=== PATIENT | female | born 1935 | race Caucasian/White ===

== ENCOUNTER 2016-11-14 09:10 | Inpatient (IN) | payer MEDICARE ==
[~2016-11-14] VITALS: Ht 177.8 cm; Wt 66.4 kg
[2016-11-14] VITALS (8 sets, daily range): BP systolic 137–163; BP diastolic 68–86; PULSE 69–97; RESP 16–20; TEMP 97.1–98.4; O2SAT 94–98
[~2016-11-14 09:10] MED LIST: ASCO500C PO; CALC500T42 PO; CEFU1TAB20 PO; COQ130CA4 PO; COUM4TAB7 PO; DIGO0.25 PO; FOLI1TAB PO; JANT5TAB2 PO; LEVO50TA4 PO; LOSA50TA PO; MAGN30TA PO; NITR-29 PO; PREM0.622 PO; PROP40TA27 PO; TAB-TAB PO; VITA20003 PO
[2016-11-14] MEDS ORDERED: SODIUM CHLORIDE 0.9% FLUSH 5 ML FLUSH IVF PRN (09:45)
[2016-11-14 09:57] LABS: AUTOMATED NEUTROPHIL # 4.1 TH/MM3 (1.8-7.7); BASOPHIL % 0.9 % (0.0-2.0); EOSINOPHIL # 0.1 TH/MM3 (0-0.4); HEMATOCRIT 41.2 % (35.0-46.0); HEMO FLAGS DIFF FINAL; LYMPH % 15.5 % (9.0-44.0); LYMPHOCYTE # 0.9 TH/MM3 (1.0-4.8); MEAN CELL VOLUME 84.9 FL (80.0-100.0); MEAN CORPUSCULAR HEMOGLOBIN 27.7 PG (27.0-34.0); MEAN CORPUSCULAR HGB CONC 32.7 % (32.0-36.0); MONO % 9.2 % (0.0-8.0); NEUT % 72.4 % (16.0-70.0); PLATELET COUNT 164 TH/MM3 (150-450); RED BLOOD COUNT 4.85 MIL/MM3 (4.00-5.30); RED CELL DISTRIBUTION WIDTH 14.5 % (11.6-17.2); WHITE BLOOD COUNT 5.6 TH/MM3 (4.0-11.0)
[2016-11-14 10:09] LABS: APTT (PATIENT) 31.7 SEC (24.3-30.1); INTERNATIONAL NORMALIZED RATIO 2.4 RATIO
[2016-11-14 10:10] LABS: ANION GAP 7 MEQ/L (5-15); AST (GOT) 28 U/L (15-37); BICARBONATE 24.7 MEQ/L (21.0-32.0); BLOOD UREA NITROGEN 13 MG/DL (7-18); CHLORIDE 107 MEQ/L (98-107); GLOMERULAR FILTRATION RATE 61 ML/MIN (>89); MAGNESIUM 2.1 MG/DL (1.5-2.5); POTASSIUM 4.3 MEQ/L (3.5-5.1); SODIUM (NA) 139 MEQ/L (136-145)
[2016-11-14 10:15] LABS: ALKALINE PHOSPHATASE 104 U/L (45-117); ALT (GPT) 33 U/L (10-53); CREATINE KINASE 115 U/L (26-192); TOTAL BILIRUBIN ADULT 0.5 MG/DL (0.2-1.0)
--- NOTE | 2016-11-14 10:17 | RADRPT ---
EXAM DATE/TIME: 11/14/2016 09:44 [place] COMPARISON: CHEST SINGLE AP, October 28, 2014, 15:11. INDICATIONS : Patient complains of dizziness. Possible syncopal episode. No chest complaints. MEDICAL HISTORY : A-fib. SURGICAL HISTORY : None. ENCOUNTER: Initial ACUITY: 1 day PAIN SCORE: 0/10 LOCATION: chest FINDINGS: Portable AP view of the chest demonstrates a normal-sized cardiac silhouette. No effusion, consolidat ion, or pneumothorax is visualized. The bones and soft tissues demonstrate no acute abnormality. CONCLUSION: No acute cardiopulmonary abnormality is identified. Diego Johnston MD on November 14, 2016 at 10:15 Board Certified Radiologist. This report was verified electronically.
[2016-11-14 10:27] LABS: CKMB 2.6 NG/ML (0.5-3.6)
[2016-11-14] MEDS ORDERED: ACETAMINOPHEN 325 MG TAB PO PRN ×2 (12:15→14:45)
[2016-11-14] MEDS ORDERED: ONDANSETRON HCL 4 MG/2 ML VIAL IVP PRN (12:15)
[2016-11-14] MEDS ORDERED: SODIUM CHLORIDE 0.9% FLUSH 5 ML FLUSH FLUSH PRN (12:15)
[2016-11-14] MEDS ORDERED: MAGNESIUM HYDROXIDE SUSP 30 ML CUP PO PRN (12:15)
[2016-11-14] MEDS ORDERED: BISACODYL 10 MG SUPP PR PRN (12:15)
[2016-11-14] MEDS ORDERED: NALOXONE HCL 0.4 MG/ML AMP IV PRN (12:15)
[2016-11-14] MEDS ORDERED: NITROGLYCERIN 0.4 MG SL 25 TABS/BTL SL PRN (12:15)
--- NOTE | 2016-11-14 12:47 | PD ---
HPI Chief Complaint: Dizziness Time Seen by Provider: 10:08 Travel History International Travel<30 days: No Contact w/Intl Traveler<30days: No Traveled to known affect area: No History of Present Illness HPI Patient is an 81-year-old female presents emergency department after presyncopal symptoms this morning. Patient does have a history of atrial fibrillation on Coumadin. Patient states she was getting out of shower when suddenly she felt very lightheaded and had to sit down. Her son does have an be coming over to give her breakfast this morning and found her diaphoretic and pale with a rapid heartbeat. Patient did discuss grab some palpitations. She is followed by Dr. Jaylon Baker for atrial fibrillation and per the son has been suggested that she be electrocardioverted at sometime in the future for symptomatically control. Patient states currently she is only having some mild lightheadedness denies any chest pain shortness of breath abdominal pain. 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) Cardiovascular Problems: Yes (HX OF ATRIAL FIB, PVCS,MITRO-VALVE PROLAPSE) High Cholesterol: No Chemotherapy: No Chest Pain: No Congestive Heart Failure: No COPD: No Cerebrovascular Accident: No Diabetes: No Diminished Hearing: No Endocrine: Yes Gastrointestinal Disorders: Yes (CHRONIC STAGEII) GERD: Yes Genitourinary: No Headaches: No Hepatitis: No Hiatal Hernia: No Heparin Induced Thrombocytopen: No Hypertension: Yes Immune Disorder: No Implanted Vascular Access Dvce: No Kidney Stones: No Medical other: No Musculoskeletal: Yes (TMJ, RHEUMATOID ARTHRITIS, HX OF BACK PROBLEMS) Neurologic: No Psychiatric: Yes (CLAUSTROPHOBIC FOR MRI) Reproductive: No Respiratory: No Immunizations Current: Yes Migraines: No Radiation Therapy: No Renal Failure: No Seizures: No Sickle Cell Disease: No Sleep Apnea: No Thyroid Disease: Yes (HYPO) Ulcer: No ?: Not Menopausal: Yes Past Surgical History Abdominal Surgery: Yes AICD: No Appendectomy: Yes Arteriovenous Shunt: No Cardiac Surgery: No Cholecystectomy: Yes Ear Surgery: No Endocrine Surgery: No Eye Surgery: Yes (BILATERAL LASER FOR GLAUCOMA) Genitourinary Surgery: No Gynecologic Surgery: Yes Hysterectomy: Yes Insulin Pump: No Joint Replacement: No Neurologic Surgery: No Oral Surgery: Yes (TEETH EXTRACTION) Pacemaker: No Thoracic Surgery: No Other Surgery: Yes (PELVIC SLING) Social History Alcohol Use: No Tobacco Use: No Substance Use: No Allergies-Medications (Allergen,Severity, Reaction): Coded Allergies: Sulfa (Verified Allergy, Severe, ORAL SORES, 12/01/14) Ofloxacin (Verified Adverse Reaction, Severe, POSSIBLE A FIB, 12/01/14) Demerol (Verified Adverse Reaction, Unknown, SEVERE NAUSEA & VOMITING, 12/01) Doxycycline (Verified Adverse Reaction, Unknown, 12/01/14) INCREASED PAIN OF RHEUMATOID ARTHRITIS Reported Meds & Prescriptions Reported Meds & Active Scripts Active Coumadin (Warfarin) 4 Mg Tab 4 Mg PO Take 1 tab (4mg) weekly on Tuesdays Propranolol (Propranolol HCl) 40 Mg Tab 80 Mg PO QID Lanoxin (Digoxin) 0.25 Mg Tab 0.125 Mg PO DAILY Reported Magnesium 100 Mg Cap 30 Mg PO DAILY Warfarin 3 Mg Tab 3 Mg PO SUMOWETHFRSA Take 1 tablet (3mg) on Wednesday,Wednesday,Wednesday,,Wednesday and Wednesday Tylenol (Acetaminophen) 325 Mg Tab 325 Mg PO Q4H PRN Keflex (Cephalexin) 500 Mg Cap 500 Mg PO HS Probiotic (Lactobacillus Acidophilus) 1 Cap Cap 1 Cap PO DAILY Doxepin (Doxepin HCl) Unknown Strength Cap 1 Cap PO HS Leflunomide Unknown Strength Tab 1 Tab PO DAILY Multi Vitamin (Multiple Vitamin) 1 Tab Tab 1 Tab PO DAILY Levothyroxine (Levothyroxine Sodium) 50 Mcg Tab 50 Mcg PO DAILY Coq-10 (Coenzyme Q10 (Ubidecarenone)) 100 Mg Cap 100 Mg PO DAILY Vitamin D3 (Cholecalciferol) 1,000 Unit Tab 1,000 Units PO BID Calcium 500 Mg Tab 500 Mg PO DAILY Vitamin C (Ascorbic Acid) 1,000 Mg Tab 1,000 Mg PO TID Review of Systems Except as stated in HPI: all other systems reviewed are Neg Physical Exam Narrative GENERAL: Well-developed well-nourished but thin in no obvious distress. SKIN: Warm and dry. HEAD: Atraumatic. Normocephalic. EYES: Pupils equal and round. No scleral icterus. No injection or drainage. ENT: No nasal bleeding or discharge. Mucous membranes pink and moist. NECK: Trachea midline. No JVD. CARDIOVASCULAR: Irregularly irregular with normal rate.. No murmur appreciated. 2+ bilateral equal pulses in all 4 extremities. RESPIRATORY: No accessory muscle use. Clear to auscultation. Breath sounds equal bilaterally. GASTROINTESTINAL: Abdomen soft, non-tender, nondistended. Hepatic and splenic margins not palpable. MUSCULOSKELETAL: No obvious deformities. No clubbing. No cyanosis. No edema. NEUROLOGICAL: Awake and alert. No cranial nerves II through XII are grossly intact and nonfocal, 5 out of 5 strength in all 4 extremities, cerebellar testing negative.. PSYCHIATRIC: Appropriate mood and affect; insight and judgment normal. Data Data Last Documented VS Vital Signs Date Time Temp Pulse Resp B/P Pulse Ox O2 Delivery O2 Flow Rate FiO2 11/14/16 12:00 75 16 143/68 98 Room Air 11/14/16 09:21 98.4 Orders Electrocardiogram (11/14/16 ) B-Type Natriuretic Peptide (11/14/16 09:34) Ckmb (Isoenzyme) Profile (11/14/16 09:34) Complete Blood Count With Diff (11/14/16 09:34) Comprehensive Metabolic Panel (11/14/16 09:34) Magnesium (Mg) (11/14/16 09:34) Prothrombin Time / Inr (Pt) (11/14/16 09:34) Act Partial Throm Time (Ptt) (11/14/16 09:34) Troponin I (11/14/16 09:34) Chest, Single Ap (11/14/16 09:34) Ecg Monitoring (11/14/16 09:34) Bilateral Bp Monitoring (11/14/16 09:34) Iv Access Insert/Monitor (11/14/16 09:34) Oximetry (11/14/16 09:34) Oxygen Administration (11/14/16 09:34) Sodium Chloride 0.9% Flush (Ns Flush) (11/14/16 09:45) CKMB (11/14/16 09:35) CKMB% (11/14/16 09:35) Admit Order (Ed Use Only) (11/14/16 ) Labs Laboratory Tests Test 11/14/16 09:35 White Blood Count 5.6 TH/MM3 Red Blood Count 4.85 MIL/MM3 Hemoglobin 13.4 GM/DL Hematocrit 41.2 % Mean Corpuscular Volume 84.9 FL Mean Corpuscular Hemoglobin 27.7 PG Mean Corpuscular Hemoglobin 32.7 % Concent Red Cell Distribution Width 14.5 % Platelet Count 164 TH/MM3 Mean Platelet Volume 8.4 FL Neutrophils (%) (Auto) 72.4 % Lymphocytes (%) (Auto) 15.5 % Monocytes (%) (Auto) 9.2 % Eosinophils (%) (Auto) 2.0 % Basophils (%) (Auto) 0.9 % Neutrophils # (Auto) 4.1 TH/MM3 Lymphocytes # (Auto) 0.9 TH/MM3 Monocytes # (Auto) 0.5 TH/MM3 Eosinophils # (Auto) 0.1 TH/MM3 Basophils # (Auto) 0.0 TH/MM3 CBC Comment DIFF FINAL Differential Comment Prothrombin Time 28.0 SEC Prothromb Time International 2.4 RATIO Ratio Activated Partial 31.7 SEC Thromboplast Time Sodium Level 139 MEQ/L Potassium Level 4.3 MEQ/L Chloride Level 107 MEQ/L Carbon Dioxide Level 24.7 MEQ/L Anion Gap 7 MEQ/L Blood Urea Nitrogen 13 MG/DL Creatinine 0.89 MG/DL Estimat Glomerular Filtration 61 ML/MIN Rate Random Glucose 112 MG/DL Calcium Level 8.9 MG/DL Magnesium Level 2.1 MG/DL Total Bilirubin 0.5 MG/DL Aspartate Amino Transf 28 U/L (AST/SGOT) Alanine Aminotransferase 33 U/L (ALT/SGPT) Alkaline Phosphatase 104 U/L Total Creatine Kinase 115 U/L Creatine Kinase MB 2.6 NG/ML Troponin I LESS THAN 0.02 NG/ML B-Type Natriuretic Peptide 94 PG/ML Total Protein 7.2 GM/DL Albumin 3.3 GM/DL [facility] Medical Decision Making Medical Screen Exam Complete: Yes Emergency Medical Condition: Yes Interpretation(s) EKG shows atrial fibrillation with a normal axis and normal R-wave progression. No concerning ST T changes. This is an abnormal EKG. Differential Diagnosis ACS, AMI, dysrhythmia, electrolyte abnormality, Narrative Course Patient roomed in emergency department, she appears well and endorses some mild lightheadedness only. Initial workup with EKG lab work negative, troponin negative. Discussed with Dr. Callum Li was auto air conditioning apprentice and agrees with the patient's primary workup modality from therefore will be Holter monitor. Patient's son is very concerned about troponin trending and concerned that she might be having a cardiac event. This was discussed with Dr. Li who is agreeable to admit for troponin trending. Patient's son states that the patient 's venetian blind cleaner has been suggesting that electrocardioversion of her A. fib may be indicated in the near future however this discussed that this is probably not going to be performed on this admission. INR is therapeutic. She is stable for CDU. Diagnosis Primary Impression: Pre-syncope Admitting Information Admitting Physician Requests: Observation Scripts Warfarin (Coumadin)4 Mg Tab4 Mg PO #30 TAB Ref 0 Take 1 tab (4mg) weekly on Tuesdays Prov:Cleveland Li DO 11/14/16 Propranolol 40 Mg Tab80 Mg PO QID #90 TAB Ref 0 Prov:Cleveland Li DO 11/14/16 Digoxin (Lanoxin)0.25 Mg Tab0.125 Mg PO DAILY #30 TAB Ref 0 Prov:Cleveland Li DO 11/14/16 Condition: Stable Magdy Sofia MD Nov 14, 2016 12:47
--- NOTE | 2016-11-14 13:15 | HHI.HP ---
HPI Service [facility] Hospitalists Primary Care Physician Dany Gallardo MD Admission Diagnosis Lightheadedness, Palpitations. Chief Complaint: LIghtheadedness, palpitations Travel History International Travel<30 Days: No Contact w/Intl Traveler <30 Da: No Traveled to Known Affected Are: No History of Present Illness Ms. Min is a pleasant 81 y/o WF with chronic atrial fibrillation, HTN, CKD, RA and bronchiectasis who presented to the ED at [facility] on 11/14/16 with complaints of lightheadedness and palpitations. Pt states that she was in her usual state of health but after she get out of the shower this morning she suddenly she felt very lightheaded and had to sit down. Her son states that when he came over to bring her breakfast this morning and found her diaphoretic and pale with a rapid heartbeat. He states that her blood pressure was higher than normal but states that her systolic was in the 130's. Patient states that she had some palpitations which lasted about 5-10 minutes. She is follows with Dr. Jaylon Baker for atrial fibrillation and per the son has been suggested that she be cardioverted but has declined this previously. Pt is in rate controlled A. fib in the ER. First set of CE are negative. Patient states currently she is only having some mild lightheadedness denies any chest pain, shortness of breath , nausea/vomiting, fevers, chills, or abdominal pain. Review of Systems Constitutional: COMPLAINS OF: Diaphoretic episodes, Dizziness, DENIES: Fever, Chills Eyes: DENIES: Vision loss Ears, nose, mouth, throat: DENIES: Hearing loss Respiratory: DENIES: Cough, Shortness of breath Cardiovascular: COMPLAINS OF: Palpitations, DENIES: Chest pain, Dyspnea on Exertion, Lower Extremity Edema Gastrointestinal: DENIES: Abdominal pain, Nausea, Vomiting Genitourinary: DENIES: Urinary incontinence, Hematuria Musculoskeletal: DENIES: Back pain, Neck pain Integumentary: DENIES: Rash Neurologic: DENIES: Headache Psychiatric: DENIES: Confusion Past Family Social History Past Medical History Chronic atrial fibrillation CKD, stage 2 Bronchiectasis HTN Hypothyroidism MItral regurgitation Recurrent UTI Rheumatoid arthritis Hx of vertigo Past Surgical History Appendectomy Back surgery Cataract surgery Cholecystectomy JIA Anal fissure repair Paravaginal defect repair Reported Medications -Levothyroxine 50 mcg PO DAILY, One tablet daily except two tablets on Wednesday -Warfarin Sodium 5 mg Tab 1 Tab PO MOTUWEFRSA -Warfarin Sodium 4 mg Tab 1 Tab PO --Digoxin 0.125 Mg PO DAILY --Propranolol 80mg PO QID --Keflex 500mg PO DAILY ?Premarin (Estrogens Conjugated) 0.625 Mg Tab 1 Tab PO DAILY ?Doxepin 50mg PO DAILY ?Leflunomide 20mg PO DAILY -Vitamin D (Cholecalciferol) 2,000 Unit Tab 1,000 Unit PO BID -Vitamin C (Ascorbic Acid) 500 Mg Cap 1,000 Mg PO TID -Multivitamin (Multivitamins) 1 Tab Tab 1 Tab PO DAILY -Coq10 (Coenzyme Q10) 30 Mg Cap 30 Mg PO DAILY -Magnesium 30 Mg Tab 30 Mg PO DAILY -Calcium 500 Mg Tab 500 Mg PO DAILY -Folate (Folic Acid) 1 Mg Tab 1 Mg PO DAILY 28 Days DAILY EXCEPT ON Wednesday. DOESN'T TAKE ON DAY SHE TAKES METHOTREXATE. Allergies: Coded Allergies: Sulfa (Verified Allergy, Severe, ORAL SORES, 12/01/14) Ofloxacin (Verified Adverse Reaction, Severe, POSSIBLE A FIB, 12/01/14) Demerol (Verified Adverse Reaction, Unknown, SEVERE NAUSEA & VOMITING, 12/01) Doxycycline (Verified Adverse Reaction, Unknown, 12/01/14) INCREASED PAIN OF RHEUMATOID ARTHRITIS Family History Father with hx of CVA and HTN Social History Pt with remote hx of tobacco use, smoked 1ppd x 6 years, quit in 1958 Rare alcohol use Pt lives alone, she still drives, does her own grocery shopping Occasionally cooks and does her own bills Pts son is very involved in her care Pt is a Physical Exam Vital Signs Vital Signs Date Time Temp Pulse Resp B/P Pulse Ox O2 Delivery O2 Flow Rate FiO2 11/14/16 10:00 18 98 Room Air 11/14/16 09:24 84 18 96 Room Air 11/14/16 09:21 98.4 97 18 146/86 11/14/16 09:14 97.4 92 20 163/76 97 Room Air Physical Exam GENERAL: This is a well-nourished, well-developed patient, in no apparent distress. HEENT: Atraumatic. Normocephalic. No temporal or scalp tenderness. No scleral icterus. Airway patent. NECK: Trachea midline, supple, nontender. CARDIO: Irregularly irregular RESP: CTA bilaterally. No wheezes, rales, or rhonchi. ABD: +BS, soft, non-tender, nondistended. EXT: Extremities without clubbing, cyanosis, or edema. NEURO: Awake and alert. Motor and sensory grossly within normal limits. Normal speech. Laboratory Laboratory Tests Test 11/14/16 09:35 White Blood Count 5.6 Red Blood Count 4.85 Hemoglobin 13.4 Hematocrit 41.2 Mean Corpuscular Volume 84.9 Mean Corpuscular Hemoglobin 27.7 Mean Corpuscular Hemoglobin 32.7 Concent Red Cell Distribution Width 14.5 Platelet Count 164 Mean Platelet Volume 8.4 Neutrophils (%) (Auto) 72.4 Lymphocytes (%) (Auto) 15.5 Monocytes (%) (Auto) 9.2 Eosinophils (%) (Auto) 2.0 Basophils (%) (Auto) 0.9 Neutrophils # (Auto) 4.1 Lymphocytes # (Auto) 0.9 Monocytes # (Auto) 0.5 Eosinophils # (Auto) 0.1 Basophils # (Auto) 0.0 CBC Comment DIFF FINAL Differential Comment Prothrombin Time 28.0 Prothromb Time International 2.4 Ratio Activated Partial 31.7 Thromboplast Time Sodium Level 139 Potassium Level 4.3 Chloride Level 107 Carbon Dioxide Level 24.7 Anion Gap 7 Blood Urea Nitrogen 13 Creatinine 0.89 Estimat Glomerular Filtration 61 Rate Random Glucose 112 Calcium Level 8.9 Magnesium Level 2.1 Total Bilirubin 0.5 Aspartate Amino Transf 28 (AST/SGOT) Alanine Aminotransferase 33 (ALT/SGPT) Alkaline Phosphatase 104 Total Creatine Kinase 115 Creatine Kinase MB 2.6 Troponin I LESS THAN 0.02 B-Type Natriuretic Peptide 94 Total Protein 7.2 Albumin 3.3 Result Diagram: 11/14/1635 11/14/16934 Imaging Last Impressions Chest X-Ray 11/14/16933 Signed Impressions: Service Date/Time: Monday, November 14, 2016 09:44 - CONCLUSION: No acute cardiopulmonary abnormality is identified. Diego Johnston MD Septic Shock Reassessment Heart: Irregular Lungs: Clear Skin: Warm Peripheral Pulses: Bounding Right Radial Bounding Left Radial Bounding Right Popliteal Bounding Left Popliteal Bounding Right Dorsalis Pedis Bounding Left Dorsalis Pedis Bounding Right Posterior Tibial Bounding Left Posterior Tibial Assessment and Plan Problem List: (1) Pre-syncope Status: Acute Plan: - Pt admitted with acute onset of lightheadedness and palpitations. - This lasted several minutes but has resolved. - Pt has chronic atrial fibrillation but is currently rate controlled on telemetry - First set of CE and EKG are stable. Repeat CE and EKG - Holter Monitor - 2D echo - Check TSH/free T4 - PT evaluation - Telemetry - Resume home meds - Monitor clinical status - DVT prophylaxis (2) Chronic atrial fibrillation Status: Chronic Plan: - Cont. Digoxin and propranolol - Check DIg level - Cont. Coumadin - INR is therapeutic - Monitor INR (3) Hypertension Status: Chronic Plan: - BP is stable - Cont. home meds (4) Hypothyroidism Status: Chronic Plan: - Check TSH/free T4 - COnt. home meds (5) Rheumatoid arthritis Status: Chronic (6) UTI (urinary tract infection) Status: Chronic Plan: - Pt reports chronic/recurrent UTI and is on Keflex 500mg po daily for the last 3 months and follows with Dr. Katz for this. Assessment and Plan Patient examined. Assessment and plan formulated with Shoshana Anne PA-C. I agree with the above. Physician Certification 2 Midnight Certification Type: Admission for Inpatient Services Order for Inpatient Services The services are ordered in accordance with Medicare regulations or non- Medicare payer requirements, as applicable. In the case of services not specified as inpatient-only, they are appropriately provided as inpatient services in accordance with the 2-midnight benchmark. Estimated LOS (days): 2 2 days is the estimated time the patient will need to remain in the hospital, assuming treatment plan goals are met and no additional complications. Post-Hospital Plan: Not yet determined Shoshana Anne Nov 14, 2016 13:15 Cleveland Li DO Nov 20, 2016 21:28
[2016-11-14] MEDS ORDERED: LEVO50TA4 PO (13:49)
[2016-11-14] MEDS ORDERED: MAGNESIUM PO (13:49)
[2016-11-14] MEDS ORDERED: WARF-58 PO (13:49)
[2016-11-14] MEDS ORDERED: LEFL20TA11 PO (13:49)
[2016-11-14] MEDS ORDERED: LACTCAP8 PO (13:49)
[2016-11-14] MEDS ORDERED: CALC500T42 PO (13:49)
[2016-11-14] MEDS ORDERED: LANO0.2510 PO ×2 (13:49→14:38)
[2016-11-14] MEDS ORDERED: VITA10007 PO (13:49)
[2016-11-14] MEDS ORDERED: TYLE325T PO (13:49)
[2016-11-14] MEDS ORDERED: CEPH-460 PO (13:49)
[2016-11-14] MEDS ORDERED: COUM4TAB PO ×2 (13:49→14:38)
[2016-11-14] MEDS ORDERED: PROP40TA3 PO ×2 (13:49→14:38)
[2016-11-14] MEDS ORDERED: MULT-135 PO (13:49)
[2016-11-14] MEDS ORDERED: DOXE10CA PO (13:49)
[2016-11-14] MEDS ORDERED: VITA100018 PO (13:49)
[2016-11-14] MEDS ORDERED: COQ-100C2 PO (13:49)
[2016-11-14] MEDS ORDERED: M2 M100C PO (13:50)
[2016-11-14] MEDS ORDERED: DOXEPIN HCL 50 MG CAP PO ONE (14:45)
[2016-11-14] MEDS: WARFARIN SOD 3 MG TAB PO SCH (16:19)
[2016-11-14] MEDS ORDERED: PROPRANOLOL HCL 40 MG TAB PO SCH (18:00)
[2016-11-14] MEDS: CEPHALEXIN MONOHYDRATE 500 MG CAP PO SCH (20:50)
[2016-11-14] MEDS: SODIUM CHLORIDE 0.9% FLUSH 5 ML FLUSH FLUSH SCH (20:51)
[2016-11-14 22:38] LABS: FREE T4 1.28 NG/DL (0.76-1.46)
[2016-11-15] VITALS (8 sets, daily range): BP systolic 134–173; BP diastolic 63–91; PULSE 72–109; RESP 16–18; TEMP 97.3–98.1; O2SAT 93–96
[2016-11-15] MEDS: LEVOTHYROXINE SODIUM 50 MCG TAB PO SCH (05:40)
[2016-11-15] MEDS ORDERED: DIGOXIN 0.25 MG TAB PO SCH (09:00)
[2016-11-15] MEDS: SODIUM CHLORIDE 0.9% FLUSH 5 ML FLUSH FLUSH SCH ×2 (09:12→21:34)
[2016-11-15 09:54] LABS: INTERNATIONAL NORMALIZED RATIO 2.3 RATIO; PROTHROMBIN TIME - PATIENT 26.1 SEC (9.8-11.6)
[2016-11-15 10:12] LABS: HDL CHOLESTEROL 44.7 MG/DL (40.0-60.0)
[2016-11-15] MEDS: WARFARIN SOD 3 MG TAB PO SCH (16:11)
--- NOTE | 2016-11-15 16:16 | HHI.PR ---
Subjective Remarks No new complaints. Objective Vitals Vital Signs Date Time Temp Pulse Resp B/P Pulse Ox O2 Delivery O2 Flow Rate FiO2 11/15/16 12:00 97.4 95 18 135/78 93 11/15/16 11:33 95 11/15/16 09:18 Room Air 11/15/16 08:00 97.3 96 18 169/91 94 11/15/16 04:00 98.1 72 16 134/70 95 11/15/16 00:00 98.1 81 16 138/63 94 11/14/16 20:00 Room Air 11/14/16 20:00 97.1 73 17 156/72 95 11/14/16 20:00 69 11/14/16 11/14/16 11/15/16 15:00 23:00 07:00 Intake Total 280 ml 380 ml Output Total 225 ml Balance 280 ml 155 ml Intake Oral 280 ml 380 ml Output Urine Total 225 ml # Voids 2 2 Result Diagram: 11/14/1693411/14/16934 Imaging Last Impressions Chest X-Ray 11/14/1634 Signed Impressions: Service Date/Time: Monday, November 14, 2016 09:44 - CONCLUSION: No acute cardiopulmonary abnormality is identified. Diego Johnston MD Objective Remarks GENERAL: This is a well-nourished, well-developed patient, in no apparent distress. CARDIOVASCULAR: irregular, tachycardic RESPIRATORY: Clear to auscultation. Breath sounds equal bilaterally. No wheezes , rales, or rhonchi. GASTROINTESTINAL: Abdomen soft, non-tender, nondistended. Normal active bowel sounds MUSCULOSKELETAL: Extremities without clubbing, cyanosis, or edema. NEURO: Alert & Oriented x4 to person, place, time, situation. Moves all ext x4 A/P Problem List: (1) Pre-syncope Status: Acute Plan: - Pt admitted with acute onset of lightheadedness and palpitations. - This lasted several minutes but has resolved. - Pt has chronic atrial fibrillation but is currently rate controlled on telemetry - First set of CE and EKG are stable. Repeat CE and EKG - Holter Monitor --> pending - 2D echo --> pending - TSH/free T4 --> WNL - Telemetry: Afib, HR 100-120, higher at times - propranolol stopped d/t bradycardia with pauses - case d/w Cardiology, Dr Davis (11/15/16). He will add rate controlling medication - DVT prophylaxis (2) Chronic atrial fibrillation Status: Chronic Plan: - Cont. Digoxin - dig level 1.4 (11/14/16) - Cont. Coumadin - INR 2.3 (10/2216) (3) Hypertension Status: Chronic Plan: - BP is stable - Cont. home meds (4) Hypothyroidism Status: Chronic Plan: - TSH/free T4 --> WNL - COnt. home meds (5) Rheumatoid arthritis Status: Chronic (6) UTI (urinary tract infection) Status: Chronic Plan: - Pt reports chronic/recurrent UTI and is on Keflex 500mg po daily for the last 3 months and follows with Dr. Katz for this. Cleveland Li DO Nov 15, 2016 16:16
[2016-11-15] MEDS: PROPRANOLOL HCL 40 MG TAB PO SCH ×2 (17:01→21:33)
[2016-11-15] MEDS: CEPHALEXIN MONOHYDRATE 500 MG CAP PO SCH (21:34)
[2016-11-16] VITALS (8 sets, daily range): BP systolic 135–166; BP diastolic 57–83; PULSE 79–110; RESP 16–18; TEMP 97.2–97.8; O2SAT 95–99
--- NOTE | 2016-11-16 05:56 | MB ---
cc: GARRICK MCCALLUM MD, DONALD G. M.D. PETERSON, VINCENT G. DO DATE OF CONSULTATION 11/15/[address] Dany Gallardo PRIMARY IT ARCHITECTURE CONSULTANT Dr. Garrick Mccallum CHIEF COMPLAINT Lightheadedness with palpitations. HISTORY OF CHIEF COMPLAINT Kisha Min is a pleasant 81-year-old female who presented to [facility] on November 14, 2016, with the complaint of lightheadedness with palpitations. She was in her usual state when she got out of the shower and she suddenly felt very lightheaded and had to sit down. Her son came over at that time during her breakfast and found her diaphoretic and pale with a rapid heartbeat. He also noted that her blood pressure was higher than usual with a systolic in the 130s-140s where she usually runs systolic 100-120. She was brought into the emergency room and at that time she was found to be in rate controlled atrial fibrillation. They offered her the chance to go home by her son wanted her to stay to be evaluated. During the episode she felt lightheaded and had palpitations. Denies chest pain or shortness of breath. In seeing her today, she states that she is feeling somewhat better today without complaints. On telemetry she is noted to have a few episodes of rapid ventricular response, but also had some episodes of slow atrial fibrillation with pauses noted. PAST MEDICAL HISTORY 1. Chronic atrial fibrillation. 2. CKD Stage II. 3. Bronchiectasis. 4. Hypertension 5. Hypothyroidism. 6. Mitral regurgitation. 7. Recurring UTI. 8. Rheumatoid arthritis. 9. History of vertigo. PAST SURGICAL HISTORY 1. Appendectomy. 2. Back surgery. 3. Cataract surgery. 4. Cholecystectomy. 5. JIA. 6. Anal fissure repair. 7. Paravaginal defect repair. ALLERGIES SULFA. OFLOXACIN. DEMEROL DOXYCYCLINE. MEDICATIONS 1. Synthroid 50 mcg daily except 100 mcg on Wednesday. 1. Coumadin 5 mg Wednesday, Wednesday, Wednesday, Wednesday, Coumadin 4 mg , Wednesday. 2. Digoxin 0.125 mg daily. 3. Propranolol 80 mg q.i.d. 4. Keflex 500 mg daily. FAMILY HISTORY Father had a history of CVA and hypertension. SOCIAL HISTORY The patient with a remote history of tobacco abuse, smoked one pack a day for six years, quitting in 1959. Rare alcohol use. She currently lives alone and still drives. REVIEW OF SYSTEMS Fourteen systems were reviewed including osteopathic pertinent positives and negatives above, otherwise negative. PHYSICAL EXAMINATION VITAL SIGNS: Temperature 97.4, heart rate 95, blood pressure 135/78, respirations 18, pulse ox 93% on room air. IN GENERAL: The patient appears well, in no acute distress, alert, awake and oriented x 3. Extraocular muscles intact. Mucous membranes moist. NECK: Supple. No JVD at 45 degrees. No carotid bruits heard bilaterally. Carotid upstroke is brisk in nature. HEART: Irregularly irregular. Positive first and second heart sounds with a 1/6 holosystolic murmur noted at the apex. LUNGS: Clear to auscultation bilaterally. No wheezes, rales or rhonchi. ABDOMEN: Soft, nontender, nondistended. No organomegaly noted. EXTREMITIES: No clubbing, cyanosis or edema. Femoral and distal pulses intact bilaterally. NEUROLOGICALLY: No focal deficits. SKIN: Warm, dry and intact. OSTEOPATHIC EXAM: Mild kyphoscoliosis. No lordosis or paraspinal tender points. LABORATORY WORK Hemoglobin 13.4, hematocrit 41.2, platelets 164. INR 2.3. Potassium 4.3, BUN 13, creatinine 0.89. Troponin negative x 3. BNP 94. TSH 1.81. ELECTROCARDIOGRAM (November 14, 2016 at 18:08) Atrial fibrillation with a slow ventricular response, nonspecific ST-T wave changes. IMPRESSION 1. Presyncope, most likely due to atrial fibrillation with rapid ventricular response. 2. Chronic atrial fibrillation. 3. Slow ventricular response with mild pauses on digoxin and propranolol. 4. Hypertension. 5. Hypothyroidism. 6. Rheumatoid arthritis. RECOMMENDATIONS 1. Kisha Min appears to have difficult to control atrial fibrillation at this time. She currently is hemodynamically stable, although appears asymptomatic from A-fib with RVR. 2. I would be inclined to restart her propranolol at a smaller dose and consider stopping her digoxin. As Dr. Mccallum knows her better, I feel that he would be best to make the final decision on digoxin if he has had difficulty controlling her atrial fibrillation in the past. At this time we will start her on a low dose of propranolol and watch her heart rate overnight. 3. Dr. Mccallum will return to cover service on this patient tomorrow. 4. She does not appear to be in digitoxicity as she has no signs or symptoms other than slow ventricular response which may be a combined effort of her digoxin and propranolol. 5. Continue Coumadin to keep her INR in a therapeutic range. Thank you for allowing me to see Kisha Min. If there are any questions, please do not hesitate to call. Henri Davis DO VGP/SSB /4:32 PM /5:38 AM
[2016-11-16] MEDS: PROPRANOLOL HCL 40 MG TAB PO SCH ×3 (06:54→21:21)
[2016-11-16] MEDS: LEVOTHYROXINE SODIUM 50 MCG TAB PO SCH (06:54)
--- NOTE | 2016-11-16 08:11 | PD.CARD.PN ---
Subjective Subjective Remarks Feels well. No chest pain or dizziness Objective Vital Signs / I&O Vital Signs Date Time Temp Pulse Resp B/P Pulse Ox O2 Delivery O2 Flow Rate FiO2 11/16/16 04:00 97.6 80 18 166/57 96 11/16/16 00:00 97.5 81 17 152/70 99 11/15/16 21:30 Room Air 11/15/16 20:05 95 11/15/16 20:00 97.3 82 18 138/64 94 11/15/16 16:00 97.5 109 18 173/79 96 11/15/16 12:00 97.4 95 18 135/78 93 11/15/16 11:33 95 11/15/16 09:18 Room Air I/O 11/15/16 11/15/16 11/15/16 11/16/16 11/16/16 11/16/16 07:00 15:00 23:00 07:00 15:00 23:00 Intake Total 380 ml 480 ml 320 ml 180 ml Output Total 225 ml 300 ml 900 ml Balance 155 ml 180 ml -580 ml 180 ml Intake Oral 380 ml 480 ml 320 ml 180 ml Output Urine Total 225 ml 300 ml 900 ml # Voids 2 2 # Bowel Movements 1 1 Physical Exam Lungs clear Irregular rhythm rate 80-90 Laboratory Laboratory Tests Test 11/15/16 08:20 Prothrombin Time 26.1 SEC Prothromb Time International 2.3 RATIO Ratio Triglycerides Level 158 MG/DL Cholesterol Level 173 MG/DL LDL Cholesterol 97 MG/DL HDL Cholesterol 44.7 MG/DL Cholesterol/HDL Ratio 3.87 RATIO Assessment and Plan Assessment and Plan HR controlled at rest but accelerates considerably with activity. BP running high. Will D/c digoxin and start long-acting diltiazem to control BP and HR Jaylon Baker MD, FACC Nov 16, 2016 08:11
[2016-11-16] MEDS: DILTIAZEM-CD 120 MG CAP ER PO SCH (09:27)
[2016-11-16] MEDS: SODIUM CHLORIDE 0.9% FLUSH 5 ML FLUSH FLUSH SCH ×2 (09:27→21:22)
[2016-11-16] MEDS: LEFLUNOMIDE 20 MG TAB PO SCH (12:23)
--- NOTE | 2016-11-16 12:38 | HHI.PR ---
Subjective Remarks doing well. no complaints Objective Vitals heent neg heart irreg lung cta abd s/nt ext no edema Vital Signs Date Time Temp Pulse Resp B/P Pulse Ox O2 Delivery O2 Flow Rate FiO2 11/16/16 04:00 97.6 80 18 166/57 96 11/16/16 00:00 97.5 81 17 152/70 99 11/15/16 21:30 Room Air 11/15/16 20:05 95 11/15/16 20:00 97.3 82 18 138/64 94 11/15/16 16:00 97.5 109 18 173/79 96 11/15/16 11/15/16 11/16/16 15:00 23:00 07:00 Intake Total 480 ml 320 ml 180 ml Output Total 300 ml 900 ml Balance 180 ml -580 ml 180 ml Intake Oral 480 ml 320 ml 180 ml Output Urine Total 300 ml 900 ml # Voids 2 # Bowel Movements 1 1 Result Diagram: 11/14/16 0935 11/14/16 0935 Imaging Last Impressions Chest X-Ray 11/14/16 0934 Signed Impressions: Service Date/Time: Monday, November 14, 2016 09:44 - CONCLUSION: No acute cardiopulmonary abnormality is identified. Diego Johnston MD A/P Problem List: (1) Pre-syncope Status: Acute Plan: - Pt admitted with acute onset of lightheadedness and palpitations. - This lasted several minutes but has resolved. -since admission pt had ave/pauses..then more afib/rvr meds adjusting per cardiology for HR and BP control cont coumadin on cardizem and propranol and dig stopped monitor on tele and d/c once stable (2) Chronic atrial fibrillation Status: Chronic Plan: - Cont. Coumadin - INR 2.3 (10/2216 rate control above (3) Hypertension Status: Chronic Plan: see above (4) Hypothyroidism Status: Chronic Plan: - TSH/free T4 --> WNL - COnt. home meds (5) Rheumatoid arthritis Status: Chronic (6) UTI (urinary tract infection) Status: Chronic Plan: - Pt reports chronic/recurrent UTI and is on Keflex 500mg po daily for the last 3 months and follows with Dr. Katz for this. Derek Chaidez MD Nov 16, 2016 12:38
[2016-11-16] MEDS: WARFARIN SOD 3 MG TAB PO SCH (15:55)
--- NOTE | 2016-11-16 18:33 | HM ---
Date Performed: 11/14/2016 Time Performed: 18:17:00 HOOKUP DATE: 11/14/16 06:17:00 PM Sat ANALYSIS START TIME: 11/14/2016 6:22:00 PM ANALYSIS END TIME: 11/15/2016 6:25:59 PM PATIENT AGE: 81 PATIENT HEIGHT PATIENT WEIGHT DRUG LIST PATIENT DIAGNOSIS: syncope palpitations TEST NARRATIVE: The patient's average heart rate was 84 BPM. Heart rates greater than 120 B PM were noted 11% of the time. Heart rates less than 50 BPM were noted < 1% of the time. 92 paus es exceeding 2.0 seconds were noted. The longest pause of 2.9 seconds occurred at 06:28:44 PM Sat. 4 ventricular ectopics, which represented < 1% of the total beat count, were noted. The highest v entricular ectopic frequency occurred from 10:00 AM to 11:00 AM Sun. During this time 3 VE(s) occurr ed. Ventricular ectopics were observed as 4 isolated beat(s) only. No couplets or runs were noted. No supraventricular ectopics were noted. Multiple episodes of ST depression (defined as -1.0 mm or more) were noted in channel 1. The maximum depression of -4.5 mm occurred at 10:26:12 AM Sun. Multiple episodes of ST depression (defined as -1.0 mm or more) were noted in channel 2. The maxi mum depression of -4.5 mm occurred at 10:38:05 AM Sun. Multiple episodes of ST depression (defined a s -1.0 mm or more) were noted in channel 3. The maximum depression of -4.4 mm occurred at 10:30:07 AM Sun. TEST INTERPRETATION: Patient had 4 PVC's over a 24 hour period. Patient had underlined atrial fi brillation with multiple pauses, longest 2.9 seconds in length, some with 2.8 seconds in length even while awake. Patient had rapid atrial fibrillation with rapid ventricular response at a maximum rate of 179 bpm on multiple occasions. Including 6 sinus syndrome with marked pauses and marked rapid rate s. Clinical correlation strongly recommended. Underlined rhythm is atrial fibrillation Signed by : Nika Wilson
--- NOTE | 2016-11-16 20:04 | EC ---
Study Study Date:11/16/2016 STUDY CONCLUSIONS SUMMARY LEFT VENTRICLE: The cavity size was normal. Wall thickness was normal. Systolic function was at the lower limits of normal. The estimated ejection fraction was 50%. Wall motion was normal; there were no regional wall motion abnormalities. If LV function is below 40, please consider prescribing an ACEI or ARB or document rationale for non-use. PROCEDURE DATA STUDY STATUS: Elective. Procedure: Transthoracic echocardiography. Image quality was good. Scanning was performed from the parasternal, apical, and subcostal acoustic windows. Study completion: The patient tolerated the procedure well. Transthoracic echocardiography. M-mode, complete 2D, complete spectral Doppler, and color Doppler. Height: Height: 70in. Weight: Weight: 153.7lb. Body mass index: BMI: 22.1kg/m^2. Body surface area: BSA: 1.87m^2. Patient status: Inpatient. CARDIAC ANATOMY LEFT VENTRICLE: The cavity size was normal. Wall thickness was normal. Systolic function was at the lower limits of normal. The estimated ejection fraction was 50%. Wall motion was normal; there were no regional wall motion abnormalities. AORTIC VALVE: Trileaflet; normal thickness leaflets. Doppler: Transvalvular velocity was within the normal range. There was no stenosis. No regurgitation. Valve area: 2.41cm^2 (Vmax). Indexed valve area: 1.29cm^2/m^2 (Vmax). AORTA: Aortic root: The aortic root was normal in size. MITRAL VALVE: Structurally normal valve. Doppler: Transvalvular velocity was within the normal range. There was no evidence for stenosis. No regurgitation. LEFT ATRIUM: The atrium was normal in size. RIGHT VENTRICLE: The cavity size was normal. Wall thickness was normal. PULMONIC VALVE: Doppler: Transvalvular velocity was within the normal range. There was no evidence for stenosis. No regurgitation. TRICUSPID VALVE: Structurally normal valve. Doppler: Transvalvular velocity was within the normal range. Trace regurgitation. PULMONARY ARTERY: The main pulmonary artery was normal-sized. Systolic pressure was within the normal range. RIGHT ATRIUM: The atrium was normal in size. PERICARDIUM: There was no pericardial effusion. SYSTEMIC VEINS: Inferior vena cava: The vessel was normal in size. Patient weight: 153.7lb _Ejection fraction:_ 65-75% _Fractional shortening:_ 32% up to 5Kg 5-11.5Kg 11.6-22.9Kg 23-45Kg 45-57Kg Aortic Root 7-13 <17 13-22 17-27 17-27 LA diam 6-13 <23 24-38 33-47 37-40 RVID 10-17 7-15 7-15 7-18 8-17 LVIDd 12-22 <32 24-38 33-47 37-40 LVPW 2-4 3-6 5-7 6-8 7-8 IVS 2-4 3-6 5-7 6-8 7-8 BASIC MEASUREMENTS ADULT NORMAL Left ventricle LV internal dimension, ED, chordal *33.7 mm 43-52 level, PLAX LV internal dimension, ES, chordal 27.4 mm 23-38 level, PLAX Fractional shortening, chordal level, *19 % >29 PLAX LV posterior wall thickness, ED 7.55 mm IVS/LVPW ratio, ED 0.94 <1.3 Ventricular septum Septal thickness, ED 7.07 mm Aortic valve Leaflet separation 18 mm 15-26 BASIC MEASUREMENTS ADULT NORMAL Aortic valve Leaflet separation 18 mm 15-26 Aorta Root diameter, ED 22 mm 20-37 Left atrium Anterior-posterior dimension, ES 34 mm 19-40 Anterior-posterior dimension index, ES 1.82 cm/m^2 <2.2 LA/aortic root ratio 1.55 DOPPLER MEASUREMENTS ADULT NORMAL Main pulmonary artery Pressure, S 19 mm Hg =30 Aortic valve Peak velocity, S 96.4 cm/s Valve area, Vmax 2.41 cm^2 Valve area index, Vmax 1.29 cm^2/m^2 Tricuspid valve Regurgitant peak velocity 175 cm/s Peak RV-RA gradient, S 12 mm Hg Maximal regurgitant velocity 175 cm/s Systemic veins Estimated CVP 10 mm Hg Right ventricle RV pressure, S 24 mm Hg <30 Pulmonic valve Peak velocity, S 111 cm/s LEGEND: Mean values are shown as u=mean value. Asterisk (*) james values outside specified normal range. Prepared and signed by Brent Goodwin [id number]
--- NOTE | 2016-11-16 20:46 | EKG ---
Date Performed: 11/14/2016 Time Performed: 18:08:28 PTAGE: 81 years EKG: ATRIAL FIBRILLATION WITH SLOW VENTRICULAR RESPONSE MODERATE ST DEPRESSION ABNORMAL ECG PREVIOUS TRACING : 11/14/2016 09.30 Compared to the previous tracing, rate has decreased, minim al change in the ST depression DOCTOR: Henri Davis Interpretating Date/Time 11/16/2016 20:44:40
[2016-11-16] MEDS: CEPHALEXIN MONOHYDRATE 500 MG CAP PO SCH (21:21)
--- NOTE | 2016-11-16 21:56 | EKG ---
Date Performed: 11/14/2016 Time Performed: 09:30:16 PTAGE: 81 years EKG: ATRIAL FIBRILLATION Nonspecific ST and T wave abnormalities ABNORMAL ECG PREVIOUS TRACING : 10/28/2014 14.33 Compared to prior tracing no significant change DOCTOR: Henri Davis Interpretating Date/Time 11/16/2016 21:54:47
[2016-11-17] VITALS (10 sets, daily range): BP systolic 116–149; BP diastolic 58–70; PULSE 53–90; RESP 16–20; TEMP 97–97.9; O2SAT 94–96
[2016-11-17] MEDS: LEVOTHYROXINE SODIUM 50 MCG TAB PO SCH (05:53)
[2016-11-17] MEDS: PROPRANOLOL HCL 40 MG TAB PO SCH ×3 (05:53→21:31)
--- NOTE | 2016-11-17 08:07 | PD.CARD.PN ---
Subjective Subjective Remarks feels well. Tolerating diltiazem well. Still has some palpitations but HR appears well controlled at approximately 80 BPM this morning. BP 130/80 Objective Vital Signs / I&O Vital Signs Date Time Temp Pulse Resp B/P Pulse Ox O2 Delivery O2 Flow Rate FiO2 11/17/16 04:57 97.0 74 18 130/58 96 11/17/16 00:27 97.6 90 18 143/63 94 11/16/16 22:05 83 11/16/16 21:38 Room Air 11/16/16 20:42 97.8 86 16 139/80 96 11/16/16 16:00 97.3 89 18 135/60 95 11/16/16 13:57 110 11/16/16 12:00 97.3 88 18 154/74 96 11/16/16 09:31 Room Air I/O 11/16/16 11/16/16 11/16/16 11/17/16 11/17/16 11/17/16 07:00 15:00 23:00 07:00 15:00 23:00 Intake Total 180 ml 2 ml Balance 180 ml 2 ml Intake Oral 180 ml IV Total 2 ml # Voids 2 3 2 # Bowel Movements 1 Physical Exam Lungs clear Irregular rhythm rate 80-90 Assessment and Plan Assessment and Plan Will ask her to ambulate to be sure rater is controlled with activity. If so, will consider discharge Jaylon Baker MD, FACC Nov 17, 2016 08:07
[2016-11-17] MEDS: LEFLUNOMIDE 20 MG TAB PO SCH (08:41)
[2016-11-17] MEDS: DILTIAZEM-CD 120 MG CAP ER PO SCH (08:41)
[2016-11-17] MEDS: SODIUM CHLORIDE 0.9% FLUSH 5 ML FLUSH FLUSH SCH ×2 (08:43→21:31)
--- NOTE | 2016-11-17 11:26 | HHI.PR ---
Subjective Remarks doing well. no palpitation with ambulation so far today Objective Vitals heart irreg lung cta abd s/nt ext no edema Vital Signs Date Time Temp Pulse Resp B/P Pulse Ox O2 Delivery O2 Flow Rate FiO2 11/17/16 08:20 Room Air 11/17/16 08:00 97.3 84 16 119/70 95 11/17/16 04:57 97.0 74 18 130/58 96 11/17/16 00:27 97.6 90 18 143/63 94 11/16/16 22:05 83 11/16/16 21:38 Room Air 11/16/16 20:42 97.8 86 16 139/80 96 11/16/16 16:00 97.3 89 18 135/60 95 11/16/16 13:57 110 11/16/16 12:00 97.3 88 18 154/74 96 11/16/16 11/16/16 11/17/16 15:00 23:00 07:00 Intake Total 2 ml Balance 2 ml IV Total 2 ml # Voids 3 2 # Bowel Movements 1 Result Diagram: 11/14/16 0935 11/14/16 0935 Imaging Last Impressions Chest X-Ray 11/14/16 0934 Signed Impressions: Service Date/Time: Monday, November 14, 2016 09:44 - CONCLUSION: No acute cardiopulmonary abnormality is identified. Diego Johnston MD A/P Problem List: (1) Pre-syncope Status: Acute Plan: - Pt admitted with acute onset of lightheadedness and palpitations. - This lasted several minutes but has resolved. -since admission pt had ave/pauses..then more afib/rvr meds adjusting per cardiology for HR and BP control cont coumadin on cardizem and propranol and dig stopped bp/pulse stable. ambulating this AM...d/c later today if doing well. (2) Chronic atrial fibrillation Status: Chronic Plan: - Cont. Coumadin - INR 2.3 (10/2216 rate control above (3) Hypertension Status: Chronic Plan: see above (4) Hypothyroidism Status: Chronic Plan: - TSH/free T4 --> WNL - COnt. home meds (5) Rheumatoid arthritis Status: Chronic (6) UTI (urinary tract infection) Status: Chronic Plan: - Pt reports chronic/recurrent UTI and is on Keflex 500mg po daily for the last 3 months and follows with Dr. Katz for this. Derek Chaidez MD Nov 17, 2016 11:26
[2016-11-17] MEDS ORDERED: WARFARIN SOD 4 MG TAB PO SCH (16:00)
[2016-11-17] MEDS: CEPHALEXIN MONOHYDRATE 500 MG CAP PO SCH (21:31)
[2016-11-18 04:55] VITALS: BP 129/62; PULSE 86; RESP 16; TEMP 97.8; O2SAT 92
[2016-11-18] MEDS: LEVOTHYROXINE SODIUM 50 MCG TAB PO SCH (05:46)
[2016-11-18] MEDS: PROPRANOLOL HCL 40 MG TAB PO SCH ×3 (05:46→21:49)
[2016-11-18 08:00] VITALS: BP 133/60; PULSE 70; PULSE 80; RESP 16; TEMP 97.6; O2SAT 96
[2016-11-18] MEDS: DILTIAZEM-CD 120 MG CAP ER PO SCH (09:08)
[2016-11-18] MEDS: LEFLUNOMIDE 20 MG TAB PO SCH (09:08)
[2016-11-18] MEDS: SODIUM CHLORIDE 0.9% FLUSH 5 ML FLUSH FLUSH SCH ×2 (09:09→21:49)
[2016-11-18 12:00] VITALS: BP 142/80; PULSE 113; RESP 16; TEMP 97.6; O2SAT 95
--- NOTE | 2016-11-18 12:28 | HHI.PR ---
Subjective Remarks feels bad. alot of palpitations and feels weak. Objective Vitals heart irreg lung cta abd s/nt ext no edema Vital Signs Date Time Temp Pulse Resp B/P Pulse Ox O2 Delivery O2 Flow Rate FiO2 11/18/16 09:12 Room Air 11/18/16 08:00 97.6 80 16 133/60 96 11/18/16 08:00 70 11/18/16 04:55 97.8 86 16 129/62 92 11/17/16 23:53 53 11/17/16 23:13 97.9 81 16 116/68 94 11/17/16 21:35 Room Air 11/17/16 21:23 97.6 89 16 149/65 96 11/17/16 20:15 81 11/17/16 16:00 97.9 73 20 138/65 95 11/17/16 11/17/16 11/18/16 15:00 23:00 07:00 Intake Total 362 ml 482 ml 0 ml Output Total 300 ml 600 ml Balance 362 ml 182 ml -600 ml Intake Oral 360 ml 480 ml 0 ml IV Total 2 ml 2 ml Output Urine Total 300 ml 600 ml # Voids 5 # Bowel Movements 1 1 0 Result Diagram: 11/14/16 0935 11/14/16934 Imaging Last Impressions Chest X-Ray 11/14/16933 Signed Impressions: Service Date/Time: Monday, November 14, 2016 09:44 - CONCLUSION: No acute cardiopulmonary abnormality is identified. Diego Johnston MD A/P Problem List: (1) Pre-syncope Status: Acute Plan: - Pt admitted with acute onset of lightheadedness and palpitations. - This lasted several minutes but has resolved. -since admission pt had ave/pauses..then more afib/rvr currently still having breakthrough rvr with palpitation and weakness also periodically having pauses up to about 2.[address] Baker...we agreed to consult dr Gregorio and give extra diltiazem now....pt and son want to hold off on extra diltiazem and await dr Gregorio evaluation..... cont coumadin (2) Chronic atrial fibrillation Status: Chronic Plan: - Cont. Coumadin - INR 2.3 (10/2216 rate control above (3) Hypertension Status: Chronic Plan: see above (4) Hypothyroidism Status: Chronic Plan: - TSH/free T4 --> WNL - COnt. home meds (5) Rheumatoid arthritis Status: Chronic (6) UTI (urinary tract infection) Status: Chronic Plan: - Pt reports chronic/recurrent UTI and is on Keflex 500mg po daily for the last 3 months and follows with Dr. Katz for this. Derek Chaidez MD Nov 18, 2016 12:27
[2016-11-18] MEDS: WARFARIN SOD 3 MG TAB PO SCH (15:01)
[2016-11-18 16:00] VITALS: BP 122/62; PULSE 95; RESP 20; TEMP 97.7; O2SAT 95
[2016-11-18 17:43] LABS: INTERNATIONAL NORMALIZED RATIO 2.4 RATIO; PROTHROMBIN TIME - PATIENT 27.2 SEC (9.8-11.6)
[2016-11-18 20:08] VITALS: BP 138/65; PULSE 78; RESP 20; TEMP 97.8; O2SAT 95
[2016-11-18] MEDS: CEPHALEXIN MONOHYDRATE 500 MG CAP PO SCH (21:49)
[2016-11-19] VITALS (8 sets, daily range): BP systolic 125–143; BP diastolic 58–74; PULSE 70–95; RESP 18–20; TEMP 97.3–98.4; O2SAT 91–97
[2016-11-19] MEDS: LEVOTHYROXINE SODIUM 50 MCG TAB PO SCH (05:08)
[2016-11-19] MEDS: PROPRANOLOL HCL 40 MG TAB PO SCH ×3 (05:08→21:50)
[2016-11-19] MEDS: LEFLUNOMIDE 20 MG TAB PO SCH (09:52)
[2016-11-19] MEDS: DILTIAZEM-CD 120 MG CAP ER PO SCH (09:52)
[2016-11-19] MEDS: SODIUM CHLORIDE 0.9% FLUSH 5 ML FLUSH FLUSH SCH ×2 (09:52→21:50)
--- NOTE | 2016-11-19 10:06 | HHI.PR ---
Subjective Remarks did well yesterday but more palpitaton this AM Objective Vitals heart irreg lung cta abd s/nt ext no edema Vital Signs Date Time Temp Pulse Resp B/P Pulse Ox O2 Delivery O2 Flow Rate FiO2 11/19/16 07:45 97.7 89 20 125/67 91 11/19/16 04:00 97.6 74 18 137/62 97 11/19/16 02:24 70 11/19/16 00:00 97.6 77 18 130/58 96 11/18/16 20:08 97.8 78 20 138/65 95 11/18/16 16:00 97.7 95 20 122/62 95 11/18/16 12:00 97.6 113 16 142/80 95 11/18/16 11/18/16 11/19/16 15:00 23:00 07:00 Intake Total 482 ml 480 ml Output Total 800 ml Balance 482 ml -320 ml Intake Oral 480 ml 480 ml IV Total 2 ml Output Urine Total 800 ml # Voids 2 # Bowel Movements 2 Imaging Last Impressions Chest X-Ray 11/14/16 0934 Signed Impressions: Service Date/Time: Monday, November 14, 2016 09:44 - CONCLUSION: No acute cardiopulmonary abnormality is identified. Diego Johnston MD A/P Problem List: (1) Pre-syncope Status: Acute Plan: - Pt admitted with acute onset of lightheadedness and palpitations. She has afib and problems with slow afib and pausing but also rvr medications have failed to regulate her Pt gets symptomatic with weakness and palpitation. Her bp is stable. she is on cardizem and propranolol She saw dr Gregorio today and EP ablation planned. (2) Chronic atrial fibrillation Status: Chronic Plan: - Cont. Coumadin - INR 2.3 (10/2216 rate control above (3) Hypertension Status: Chronic Plan: see above (4) Hypothyroidism Status: Chronic Plan: - TSH/free T4 --> WNL - COnt. home meds (5) Rheumatoid arthritis Status: Chronic (6) UTI (urinary tract infection) Status: Chronic Plan: - Pt reports chronic/recurrent UTI and is on Keflex 500mg po daily for the last 3 months and follows with Dr. Katz for this. Derek Chaidez MD Nov 19, 2016 10:06
[2016-11-19] MEDS ORDERED: LORazepam 1 MG TAB SL SCH (14:45)
[2016-11-19] MEDS ORDERED: SODIUM CHLORID 0.9% 500 ML INJ 500 ML IV SCH ×2 (14:45)
[2016-11-19] MEDS: WARFARIN SOD 3 MG TAB PO SCH (16:00)
[2016-11-19] MEDS: CEPHALEXIN MONOHYDRATE 500 MG CAP PO SCH (21:50)
[2016-11-20] VITALS (14 sets, daily range): BP systolic 115–138; BP diastolic 58–75; PULSE 66–91; RESP 16–18; TEMP 97.3–98.2; O2SAT 94–100
[2016-11-20] MEDS: LEVOTHYROXINE SODIUM 50 MCG TAB PO SCH (06:27)
[2016-11-20] MEDS: PROPRANOLOL HCL 40 MG TAB PO SCH ×2 (06:27→14:09)
--- NOTE | 2016-11-20 06:31 | MB ---
cc: HEDY GREGORIO M.D. DATE OF CONSULTATION 11/19/2016 REASON FOR CONSULTATION Atrial fibrillation, symptomatic heart rate difficult to control. HISTORY OF PRESENT ILLNESS I was called by Dr. Jaylon Baker about Mrs. Min. She is an 81-year-old female with history of atrial fibrillation, recurrent palpitation, high blood pressure, rheumatoid arthritis, admitted due to palpitation and atrial fibrillation with fast ventricular response. During hospitalization heart rate was controlled. She is already on Coumadin. I was consulted for evaluation and management. The chart was reviewed. The patient was evaluated. ALLERGIES SULFA. OFLOXACIN. DEMEROL. DOXYCYCLINE. SOCIAL HISTORY Negative for smoking and drinking. FAMILY HISTORY Noncontributory to her current medical condition. MEDICATIONS The patient currently on - 1. Acetaminophen. 2. Keflex. 3. Cardizem CD. 4. Levoxyl. 5. Lorazepam. 6. Magnesium. 7. Coumadin as directed. REVIEW OF SYSTEMS She refers no chest pain, no chest discomfort, palpitations, shortness of breath but no vomiting, no fever. PHYSICAL EXAMINATION GENERAL: Alert, fully oriented. VITAL SIGNS: Blood pressure 125/67, pulse 89, respiratory rate 18 LUNGS: Ventilated. CARDIOVASCULAR: S1, S2. Irregular. No gallop. ABDOMEN: Soft. No mass. No bruit. EXTREMITIES: With no edema. ELECTROCARDIOGRAM Showed atrial fibrillation. No acute ST and T-wave changes. LABORATORY DATA Hemoglobin 13.4, white blood cell 5.6. Potassium 4.3, creatinine 0.89. Troponin less than 0.02. INR is 2.4. ASSESSMENT AND RECOMMENDATIONS Mrs. Min refers very symptomatic atrial fibrillation. She has multiple episodes. She is on metoprolol, Cardizem and digoxin. INR 2.4. I had a long conversation with her and her son. Electrophysiology study and ablation were discussed. The risks, the nature and the benefit of the procedure were clearly stated to them. The risks include pneumothorax, cardiac perforation, stroke and even . They understand and agreed to proceed. I am going to keep her n.p.o. after breakfast and if possible ablation this afternoon. Hedy Gregorio MD HS/SSB /5:42 PM /6:25 AM
[2016-11-20] MEDS: SODIUM CHLORIDE 0.9% FLUSH 5 ML FLUSH FLUSH SCH (08:01)
[2016-11-20] MEDS: LEFLUNOMIDE 20 MG TAB PO SCH (08:01)
[2016-11-20] MEDS: DILTIAZEM-CD 120 MG CAP ER PO SCH (08:01)
--- NOTE | 2016-11-20 08:50 | HHI.PR ---
Subjective Remarks unable to get EP yesterday. Objective Vitals heart irreg lung cta abd s/nt ext no edema Vital Signs Date Time Temp Pulse Resp B/P Pulse Ox O2 Delivery O2 Flow Rate FiO2 11/20/16 08:00 97.7 89 18 129/67 94 11/20/16 04:00 97.3 76 18 115/58 96 11/20/16 00:00 98.2 85 18 125/63 97 11/19/16 20:00 97.3 86 18 143/62 96 11/19/16 19:30 97 Room Air 11/19/16 19:30 86 11/19/16 19:30 86 11/19/16 18:31 94 Room Air 11/19/16 16:00 98.4 95 18 128/72 94 11/19/16 12:00 98.0 75 18 142/74 93 11/19/16 11/19/16 11/20/16 15:00 23:00 07:00 Intake Total 480 ml 693 ml 488 ml Output Total 600 ml 300 ml 350 ml Balance -120 ml 393 ml 138 ml Intake Oral 480 ml 360 ml 0 ml IV Total 333 ml 488 ml Output Urine Total 600 ml 300 ml 350 ml # Bowel Movements 0 Imaging Last Impressions Chest X-Ray 11/14/16 0934 Signed Impressions: Service Date/Time: Monday, November 14, 2016 09:44 - CONCLUSION: No acute cardiopulmonary abnormality is identified. Diego Johnston MD A/P Problem List: (1) Pre-syncope Status: Acute Plan: - Pt admitted with acute onset of lightheadedness and palpitations. She has afib and problems with slow afib and pausing but also rvr medications have failed to regulate her Pt gets symptomatic with weakness and palpitation. Her bp is stable. she is on cardizem and propranolol awaiting EPS today. (2) Chronic atrial fibrillation Status: Chronic Plan: - Cont. Coumadin - INR 2.3 (10/2216 rate control above (3) Hypertension Status: Chronic Plan: see above (4) Hypothyroidism Status: Chronic Plan: - TSH/free T4 --> WNL - COnt. home meds (5) Rheumatoid arthritis Status: Chronic (6) UTI (urinary tract infection) Status: Chronic Plan: - Pt reports chronic/recurrent UTI and is on Keflex 500mg po daily for the last 3 months [address] follows with Dr[address] Katz for this. Derek Chaidez MD Nov 20, 2016 08:50
[2016-11-20] MEDS ORDERED: ISOPROTERENOL HCL 1 MG/5 ML AMP ONE (15:20)
[2016-11-20] MEDS ORDERED: fentaNYL CITRATE 250 MCG/5 ML AMP ONE (15:21)
[2016-11-20] MEDS ORDERED: HEPARIN-D5W INJ 250 ML ONE (15:21)
[2016-11-20] MEDS ORDERED: HEPARIN SODIUM - IV 10,000 UNITS/10 ML VIAL ONE (15:21)
[2016-11-20] MEDS ORDERED: PROPOFOL 200 MG/20 ML AMP IV ONE (15:40)
[2016-11-20] MEDS ORDERED: SODIUM CHLORID 0.9% 500 ML BAG IV ONE (15:40)
[2016-11-20] MEDS ORDERED: HEPARIN-NS/PF INJ 500 ML ONE (15:46)
[2016-11-20] MEDS ORDERED: SODIUM CHLOR 0.9% 250 ML INJ 250 ML IV PRN (18:15)
[2016-11-20] MEDS ORDERED: oxyCODONE/ACETAMINOPHEN 5 MG/325 MG TAB PO PRN ×2 (18:15)
[2016-11-20] MEDS ORDERED: ATROPINE SULFATE 1 MG/ML VIAL IV PRN (18:15)
[2016-11-20] MEDS ORDERED: LIDOCAINE HCL 1% 50 ML VIAL INFIL PRN (18:15)
[2016-11-20] MEDS ORDERED: METOCLOPRAMIDE HCL 10 MG/2 ML VIAL IV PRN (18:15)
[2016-11-20] MEDS ORDERED: ONDANSETRON HCL 4 MG/2 ML VIAL IV PRN (18:15)
[2016-11-20] MEDS ORDERED: BACITRACIN OINT 0.9 GM PKT TOP ONE (18:15)
[2016-11-20] MEDS ORDERED: LORazepam 2 MG/ML VIAL IV PRN (18:15)
[2016-11-20] MEDS ORDERED: FUROSEMIDE 40 MG/4 ML VIAL ONE (18:16)
[2016-11-20] MEDS ORDERED: PROTAMINE SULFATE 50 MG/5 ML VIAL ONE (18:16)
[2016-11-20] MEDS ORDERED: DO NOT ADM ANY ANTICOAGULANT DRUGS XX PRN (19:30)
[2016-11-20] MEDS: AMIODARONE 200 MG TAB PO SCH (21:45)
[2016-11-20] MEDS: CEPHALEXIN MONOHYDRATE 500 MG CAP PO SCH (21:45)
[2016-11-21] VITALS (11 sets, daily range): BP systolic 114–152; BP diastolic 67–87; PULSE 69–92; RESP 18–20; TEMP 97.5–98.4; O2SAT 97–100
[2016-11-21] MEDS: PROPRANOLOL HCL 40 MG TAB PO SCH ×4 (00:48→21:09)
[2016-11-21] MEDS: WARFARIN SOD 2.5 MG TAB PO SCH ×2 (00:48→15:01)
[2016-11-21] MEDS: LEVOTHYROXINE SODIUM 50 MCG TAB PO SCH (06:13)
[2016-11-21 07:59] LABS: APTT (PATIENT) 32.6 SEC (24.3-30.1); INTERNATIONAL NORMALIZED RATIO 1.6 RATIO; PROTHROMBIN TIME - PATIENT 17.8 SEC (9.8-11.6)
[2016-11-21] MEDS: AMIODARONE 200 MG TAB PO SCH (08:29)
[2016-11-21] MEDS: SODIUM CHLORIDE 0.9% FLUSH 5 ML FLUSH FLUSH SCH ×2 (08:29→21:08)
[2016-11-21] MEDS: LEFLUNOMIDE 20 MG TAB PO SCH (08:29)
--- NOTE | 2016-11-21 10:01 | PD.CARD.PN ---
Subjective Subjective Remarks no complaints no overnight events Objective Medications Current Medications Medications (Trade) Dose Ordered Sig/Lianet Route Start Time Stop Time Status Last Admin (NS Flush) 2 ml UNSCH PRN FLUSH 11/14/16 12:15 (NS Flush) 2 ml BID FLUSH 11/14/16 21:00 11/21/16 08:29 (Zofran Inj) 4 mg Q6H PRN IVP 11/14/16 12:15 (Dulcolax Supp) 10 mg DAILY PRN MN 11/14/16 12:15 (Milk Of Magnesia Liq) 30 ml Q12H PRN PO 11/14/16 12:15 (Narcan Inj) 0.4 mg UNSCH PRN IV 11/14/16 12:15 (Nitrostat Sl) 0.4 mg Q5M PRN SL 11/14/16 12:15 (Tylenol) 325 mg Q4H PRN PO 11/14/16 14:45 (Keflex) 500 mg HS PO 11/14/16 21:00 11/20/16 21:45 (Synthroid) 50 mcg DAILY@06 PO 11/15/16 06:00 11/21/16 06:13 (Coumadin) 4 mg Tu@16 PO 11/17/16 16:00 11/17/16 16:33 (Inderal) 40 mg Q8HR PO 11/15/16 16:45 11/21/16 06:13 Leflunomide 20 mg 20 mg DAILY PO 11/16/16 10:00 11/21/16 08:29 Sodium Chloride 500 ml @ 30 mls/hr CONTINUOUS IV 11/19/16 14:45 (NS 500 ml Inj) 500 ml @ 30 mls/hr CONTINUOUS IV 11/19/16 14:45 (Percocet 5-325 Mg) 1 tab Q4H PRN PO 11/20/16 18:15 11/20/16 21:46 (Percocet 5-325 Mg) 2 tab Q4H PRN PO 11/20/16 18:15 (Ativan Inj) 0.5 mg UNSCH PRN IV 11/20/16 18:15 11/21/16 18:14 Atropine Sulfate 0.5 mg 0.5 mg UNSCH PRN IV 11/20/16 18:15 (NS 250 ml Inj) 250 ml @ 500 mls/hr ONCE PRN IV 11/20/16 18:15 11/21/16 18:14 (Reglan Inj) 10 mg Q4H PRN IV 11/20/16 18:15 (Zofran Inj) 4 mg Q4H PRN IV 11/20/16 18:15 (Xylocaine 1% Inj (50 ml)) 10 ml UNSCH PRN INFIL 11/20/16 18:15 11/21/16 18:14 (Coumadin) 2.5 mg SuMoWeThFrSa@16 PO 11/20/16 20:16 11/21/16 00:48 (Cordarone) 200 mg DAILY PO 11/20/16 21:00 11/21/16 08:29 Miscellaneous Information ALL NURSING DEPARTME... UNSCH PRN XX 11/20/16 19:30 11/21/16 19:29 Vital Signs / I&O Vital Signs Date Time Temp Pulse Resp B/P Pulse Ox O2 Delivery O2 Flow Rate FiO2 11/21/16 03:59 98.0 74 18 139/69 98 11/21/16 03:59 98.2 72 18 139/69 98 11/21/16 01:00 74 115/67 11/21/16 00:00 72 114/67 11/20/16 23:30 98.2 72 18 115/67 100 11/20/16 23:00 70 118/68 11/20/16 22:30 68 120/66 11/20/16 22:00 71 116/69 11/20/16 21:30 72 116/70 11/20/16 21:00 69 129/71 11/20/16 20:45 69 135/71 11/20/16 20:30 68 136/75 11/20/16 20:15 66 133/70 11/20/16 20:11 98.2 68 18 134/69 98 11/20/16 20:11 97.8 68 16 134/69 98 11/20/16 20:10 97 Room Air 11/20/16 19:30 66 14 130/75 99 Nasal Cannula 2 11/20/16 19:15 69 14 125/70 99 Nasal Cannula 2 11/20/16 19:00 72 14 127/69 100 Nasal Cannula 2 11/20/16 18:56 70 14 133/72 100 Nasal Cannula 2 11/20/16 12:00 98.1 91 18 138/64 97 I/O 11/20/16 11/20/16 11/20/16 11/21/16 11/21/16 11/21/16 07:00 15:00 23:00 07:00 15:00 23:00 Intake Total 488 ml 360 ml 1880 ml Output Total 350 ml 800 ml 1550 ml Balance 138 ml -440 ml 330 ml Intake Oral 0 ml 360 ml IV Total 488 ml 480 ml Other 1400 ml Output Urine Total 350 ml 800 ml 1525 ml Estimated Blood Loss 25 ml # Bowel Movements 1 Physical Exam GENERAL: Well-nourished, well-developed patient. SKIN: Warm and dry. HEAD: Normocephalic. EYES: No scleral icterus. No injection or drainage. NECK: Supple, trachea midline. No JVD or lymphadenopathy. CARDIOVASCULAR: Regular rate and rhythm without murmurs, gallops, or rubs. RESPIRATORY: Breath sounds equal bilaterally. No accessory muscle use. GASTROINTESTINAL: Abdomen soft, non-tender, nondistended. EXTREMITIES: No cyanosis, or edema. NEUROLOGICAL: Awake, alert, and oriented x 3. Non-focal. Laboratory Laboratory Tests Test 11/21/16 07:15 Prothrombin Time 17.8 SEC Prothromb Time International 1.6 RATIO Ratio Activated Partial 32.6 SEC Thromboplast Time Assessment and Plan Problem List: (1) Chronic atrial fibrillation Assessment and Plan: s/p ablation NSR on telemetry no complaints Cont PO Amio and OAC Stable to be d/c home F/U with Dr. Gregorio (2) Hypertension (3) Hypothyroidism Burke Herrera MD Nov 21, 2016 10:01
--- NOTE | 2016-11-21 11:20 | HHI.PR ---
Subjective Remarks doing well and no complaints Objective Vitals heart reg lung cta abd s/nt ext no edema Vital Signs Date Time Temp Pulse Resp B/P Pulse Ox O2 Delivery O2 Flow Rate FiO2 11/21/16 07:00 98 Room Air 11/21/16 03:59 98.0 74 18 139/69 98 11/21/16 03:59 98.2 72 18 139/69 98 11/21/16 01:00 74 115/67 11/21/16 00:00 72 114/67 11/20/16 23:30 98.2 72 18 115/67 100 11/20/16 23:00 70 118/68 11/20/16 22:30 68 120/66 11/20/16 22:00 71 116/69 11/20/16 21:30 72 116/70 11/20/16 21:00 69 129/71 11/20/16 20:45 69 135/71 11/20/16 20:30 68 136/75 11/20/16 20:15 66 133/70 11/20/16 20:11 98.2 68 18 134/69 98 11/20/16 20:11 97.8 68 16 134/69 98 11/20/16 20:10 97 Room Air 11/20/16 19:30 66 14 130/75 99 Nasal Cannula 2 11/20/16 19:15 69 14 125/70 99 Nasal Cannula 2 11/20/16 19:00 72 14 127/69 100 Nasal Cannula 2 11/20/16 18:56 70 14 133/72 100 Nasal Cannula 2 11/20/16 12:00 98.1 91 18 138/64 97 11/20/16 11/20/16 11/21/16 15:00 23:00 07:00 Intake Total 360 ml 1880 ml Output Total 800 ml 1550 ml Balance -440 ml 330 ml Intake Oral 360 ml IV Total 480 ml Other 1400 ml Output Urine Total 800 ml 1525 ml Estimated Blood Loss 25 ml # Bowel Movements 1 Imaging Last Impressions Chest X-Ray 11/14/16 0934 Signed Impressions: Service Date/Time: Monday, November 14, 2016 09:44 - CONCLUSION: No acute cardiopulmonary abnormality is identified. Diego Johnston MD A/P Problem List: (1) Pre-syncope Status: Acute Plan: - Pt admitted with acute onset of lightheadedness and palpitations. She has afib and problems with slow afib and pausing but also rvr medications have failed to regulate her Pt gets symptomatic with weakness and palpitation. Her bp is stable. taken for eps and ablation 11/20 today asx and in sinus \ on propranolol and amiodarone. coumadin ambulate. d/c home if Asx. (2) Chronic atrial fibrillation Status: Chronic Plan: - Cont. Coumadin - INR 2.3 (10/2216 rate control above (3) Hypertension Status: Chronic Plan: see above (4) Hypothyroidism Status: Chronic Plan: - TSH/free T4 --> WNL - COnt. home meds (5) Rheumatoid arthritis Status: Chronic (6) UTI (urinary tract infection) Status: Chronic Plan: - Pt reports chronic/recurrent UTI and is on Keflex 500mg po daily for the last 3 months and follows with Dr. Katz for this. Derek Chaidez MD Nov 21, 2016 11:20
--- NOTE | 2016-11-21 12:17 | EKG ---
Date Performed: 11/21/2016 Time Performed: 05:50:34 PTAGE: 81 years EKG: Sinus rhythm with 1st degree A-V block Abnormal ECG PREVIOUS TRACING 11/20/2016 @ 19.49.07 Compared to prior tracing no significant change DOCTOR: Jaylon Baker Interpretating Date/Time 11/21/2016 12:16:10
--- NOTE | 2016-11-21 13:02 | EKG ---
Date Performed: 11/20/2016 Time Performed: 19:49:07 PTAGE: 81 years EKG: Sinus rhythm WITH FIRST DEGREE AV BLOCK PROLONGED QT INTERVAL Compared to previous tracing sinus rhythm has repla galen atrial fibrillation ABNORMAL ECG PREVIOUS TRACING : 11/14/2016 18.08 DOCTOR: Jaylon Baker Interpretating Date/Time 11/21/2016 13:00:58
[2016-11-21] MEDS: CEPHALEXIN MONOHYDRATE 500 MG CAP PO SCH (21:09)
[2016-11-22] VITALS (13 sets, daily range): BP systolic 124–146; BP diastolic 56–81; PULSE 82–95; RESP 16–18; TEMP 98–99.2; O2SAT 93–97
[2016-11-22] MEDS: LEVOTHYROXINE SODIUM 50 MCG TAB PO SCH (04:43)
[2016-11-22] MEDS: PROPRANOLOL HCL 40 MG TAB PO SCH (04:43)
--- NOTE | 2016-11-22 08:16 | HHI.PR ---
Subjective Remarks pt had great day and asx.want to go home Objective Vitals heart reg lung cta abd s/nt ext no edema Vital Signs Date Time Temp Pulse Resp B/P Pulse Ox O2 Delivery O2 Flow Rate FiO2 11/22/16 06:00 90 11/22/16 05:00 90 11/22/16 04:00 87 11/22/16 04:00 98.0 94 16 124/56 97 11/22/16 03:00 89 11/22/16 02:00 89 11/22/16 01:00 94 11/22/16 00:00 95 Room Air 11/22/16 00:00 98.6 88 18 146/81 95 11/22/16 00:00 83 11/21/16 23:00 92 11/21/16 22:00 88 11/21/16 21:00 86 11/21/16 20:00 83 11/21/16 20:00 97.7 91 18 150/80 100 11/21/16 20:00 100 Room Air 11/21/16 19:00 87 11/21/16 17:00 97.5 86 20 143/75 97 11/21/16 12:00 97.8 77 18 138/78 98 11/21/16 12:00 69 11/21/16 11/21/16 11/22/16 15:00 23:00 07:00 Intake Total 480 ml 480 ml Balance 480 ml 480 ml Intake Oral 480 ml 480 ml # Voids 2 6 # Bowel Movements 0 0 Imaging Last Impressions Chest X-Ray 11/14/16 0934 Signed Impressions: Service Date/Time: Monday, November 14, 2016 09:44 - CONCLUSION: No acute cardiopulmonary abnormality is identified. Diego Johnston MD A/P Problem List: (1) Pre-syncope Status: Acute Plan: - Pt admitted with acute onset of lightheadedness and palpitations. She has afib and problems with slow afib and pausing but also rvr medications have failed to regulate her Pt gets symptomatic with weakness and palpitation. Her bp is stable. taken for eps and ablation 11/20 today asx and in sinus. hr in 90s \ on propranolol and amiodarone. coumadin d/c today with dr Gregorio f/u. (2) Chronic atrial fibrillation Status: Chronic Plan: - Cont. Coumadin - INR 2.3 (10/2216 rate control above (3) Hypertension Status: Chronic Plan: see above (4) Hypothyroidism Status: Chronic Plan: - TSH/free T4 --> WNL - COnt. home meds (5) Rheumatoid arthritis Status: Chronic (6) UTI (urinary tract infection) Status: Chronic Plan: - Pt reports chronic/recurrent UTI and is on Keflex 500mg po daily for the last 3 months and follows with Dr. Katz for this. Derek Chaidez MD Nov 22, 2016 08:16
[2016-11-22] MEDS ORDERED: AMIO200T PO (08:22)
[2016-11-22] MEDS ORDERED: PROP40TA3 PO (08:22)
--- NOTE | 2016-11-22 08:23 | HHI.DCPOC ---
Discharge Care Plan Diagnosis: (1) Chronic atrial fibrillation (2) Hypertension (3) Hypothyroidism (4) Rheumatoid arthritis Goals to Promote Your Health * To prevent worsening of your condition and complications * To maintain your health at the optimal level Directions to Meet Your Goals Take your medications as prescribed Follow your dietary instruction Follow activity as directed Keep your appointments as scheduled Take your immunizations and boosters as scheduled If your symptoms worsen call your PCP, if no PCP go to Urgent Care Center or Emergency Room Smoking is Dangerous to Your Health. Avoid second hand smoke Call the 24-hour hour crisis hotline for domestic abuse at Derek Chaidez MD Nov 22, 2016 08:23
[2016-11-22] MEDS: LEFLUNOMIDE 20 MG TAB PO SCH (10:02)
[2016-11-22] MEDS: AMIODARONE 200 MG TAB PO SCH (10:03)
[2016-11-22] MEDS: SODIUM CHLORIDE 0.9% FLUSH 5 ML FLUSH FLUSH SCH (10:03)
--- NOTE | 2016-11-22 15:40 | HHI.DS ---
Discharge Summary Admission Date Nov 14, 2016 at 12:08 Discharge Date: Nov 22, 2016 Admitting Diagnosis Lightheadedness, Palpitations. (1) Pre-syncope Diagnosis: Principal (2) Chronic atrial fibrillation Diagnosis: Principal (3) Hypertension Diagnosis: Secondary (4) Hypothyroidism Diagnosis: Secondary (5) Rheumatoid arthritis Diagnosis: Secondary (6) UTI (urinary tract infection) Diagnosis: Secondary Brief History Ms. Min is a pleasant 81 y/o WF with chronic atrial fibrillation, HTN, CKD, RA and bronchiectasis who presented to the ED at [facility] on 11/14/16 with complaints of lightheadedness and palpitations. Pt states that she was in her usual state of health but after she get out of the shower this morning she suddenly she felt very lightheaded and had to sit down. Her son states that when he came over to bring her breakfast this morning and found her diaphoretic and pale with a rapid heartbeat. He states that her blood pressure was higher than normal but states that her systolic was in the 130's. Patient states that she had some palpitations which lasted about 5-10 minutes. She is follows with Dr. Jaylon Baker for atrial fibrillation and per the son has been suggested that she be cardioverted but has declined this previously. Pt is in rate controlled A. fib in the ER. First set of CE are negative. Patient states currently she is only having some mild lightheadedness denies any chest pain, shortness of breath , nausea/vomiting, fevers, chills, or abdominal pain. Significant Findings Laboratory Tests Test 11/21/16 07:15 Prothrombin Time 17.8 SEC (9.8-11.6) Activated Partial 32.6 SEC Thromboplast Time (24.3-30.1) Hospital Course Pt admitted with acute onset of lightheadedness and palpitations. She has afib and problems with slow afib and pausing but also rvr medications have failed to regulate her Pt gets symptomatic with weakness and palpitation. Her bp is stable. taken for eps and ablation 11/20 today asx and in sinus. hr in 90s on propranolol and amiodarone. coumadin d/c today with dr Gregorio f/u. Pt Condition on Discharge: Stable Discharge Disposition: Discharge Home Discharge Instructions DIET: Follow Instructions for: Heart Healthy Diet Activities you can perform: Regular-No Restrictions Follow up Referrals: Cardiology - 1 Week with Jm Gregorio MD PCP Follow-up - [address] stacy mcdaniel New Medications: Amiodarone (Amiodarone) 200 Mg Tab 200 MG PO DAILY afib #30 Ref 6 TAB Propranolol (Propranolol) 40 Mg Tab 40 MG PO Q8HR afib #90 Ref 6 TAB Continued Medications: Acetaminophen (Tylenol) 325 Mg Tab 325 MG PO Q4H PRN PAIN 1-10 AND/OR FEVER >101F Ref 0 TAB Ascorbic Acid (Vitamin C) 1,000 Mg Tab 1000 MG PO TID Nutritional Supplement Ref 0 TAB Calcium (Calcium) 500 Mg Tab 500 MG PO DAILY TAB Cephalexin (Keflex) 500 Mg Cap 500 MG PO HS Infection Ref 0 CAP Cholecalciferol (Vitamin D3) 1,000 Unit Tab 1000 UNITS PO BID Nutritional Supplement #1 Ref 0 BOTTLE Coenzyme Q10 (Ubidecarenone) (Coq-10) 100 Mg Cap 100 MG PO DAILY Lactobacillus Acidophilus (Probiotic) 1 Cap Cap 1 CAP PO DAILY Nutritional Supplement #90 Ref 0 CAP Leflunomide (Leflunomide) Unknown Strength Tab 1 TAB PO DAILY TAB Levothyroxine (Levothyroxine) 50 Mcg Tab 50 MCG PO DAILY Thyroid #30 Ref 0 TAB Magnesium (Magnesium) 100 Mg Cap 30 MG PO DAILY Multiple Vitamin (Multi Vitamin) 1 Tab Tab 1 TAB PO DAILY TAB Warfarin (Warfarin) 3 Mg Tab 3 MG PO WE Take 1 tablet (3mg) on Wednesday,Wednesday,Wednesday,, Wednesday and Wednesday Blood Clot Prevention #30 Ref 0 TAB Warfarin (Coumadin) 4 Mg Tab 4 MG PO Take 1 tab (4mg) weekly on Tuesdays Prevent Blood Clot #30 Ref 0 TAB Discontinued Medications: Digoxin (Lanoxin) 0.25 Mg Tab 0.125 MG PO DAILY Regulate Heart Beat #30 Ref 0 TAB Propranolol (Propranolol) 40 Mg Tab 80 MG PO QID htn #90 Ref 0 TAB Derek Chaidez MD Nov 22, 2016 15:40
--- NOTE | 2016-12-01 12:51 | PD.CARD ---
Atrial Fibrillation Ablation PROCEDURE DATE: Nov 20, 2016 PROCEDURES PERFORMED: 1. Electrophysiology study on Isuprel infusion 2. CS cannulation 3. 3-D mapping 4. Transseptal approach 5. Right and left heart catheterization 6. Intracardiac echo 7. Radiofrequency ablation of atrial fibrillation 8. Pulmonary vein isolation 9. Posterior wall ablation 10. Mitral valve isolation 11. Mitral line creation 12. Left atrial tachycardia ablation 13. Roof line creation 14. Floor line creation 15. Anterior and posterior ablation 16. Cardioversion INDICATIONS FOR THE PROCEDURE Ms. Min is a 81-year-old female with atrial fibrillation> On multiple medications, heart rate difficult to control, on Coumadin was referred for electrophysiology study and ablation. The risks, the nature and the benefits of the procedure were clearly stated to her. The risks include pneumothorax, cardiac perforation, stroke, need for open heart surgery and even . The patient understood and agreed to proceed. DESCRIPTION OF THE PROCEDURE IN DETAIL As written informed consent was obtained prior to esophageal echocardiogram, the patient was kept on the table where she was prepped and draped in the usual sterile fashion. Conscious sedation was initiated and maintained throughout the procedure by the anesthesiologist. Once sedation was verified, the right and left inguinal areas were anesthetized with 2% Xylocaine. Using modified Seldinger technique, the left femoral vein was cannulated on three occasions, three guidewires were advanced. Over the wire a 6, 7 and a 10-[place] Hemaquet were advanced. Then the left femoral artery was cannulated on one occasion, one guidewire was advanced. Over the wire a 4-[place] Hemaquet was advanced. Then the right femoral vein was cannulated on one occasion, one guidewire was advanced. Over the wire a 8-[place] Hemaquet was advanced. Then under fluoroscopic guidance through the 6 and 7-[place] Hemaquet, two 5-[place] Emilee curved quadripolar electrophysiology catheters were advanced and placed around the His as well as coronary sinus. Basic interval was measured. The patient was in atrial fibrillation. Through the 10-[place] Hemaquet, a Cordis Kelly AcuNav intracardiac echo catheter was advanced and placed at the right atrium. Multiple view was obtained. There is pericardial effusion, pulmonary vein was seen, atrial septal was visualized. Then the 8-[place] Hemaquet in the right femoral vein was exchanged for Agilis transseptal sheath that was placed all the way to the superior vena cava. Through the sheath a Ruy needle was advanced, then the sheath, the dilator and the needle were progressed until foci engaged. Once engaged, the needle was advanced. RF was delivered for 2 seconds. I was able to cross into the left atrium. Once the needle crossed, the dilator was advanced. Once the dilator crossed, the sheath was advanced. Once the sheath crossed, the dilator and the needle were removed. At this point I did flood the system and fluid movement was seen in the left atrium the indicates the sheath is in good position. The patient already received 6,000 units of heparin. The goal is to keep an ACT around 350 during ablation. Then through the sheath a St. Noel 20 pulse circumferential catheter was advanced. Using Klick2Contact endocardial solution mapping system, a two- dimensional configuration of the left atrium was obtained. Points were taken at the left superior and inferior veins, right superior and inferior veins, mitral valve, and appendages. Then through the sheath a St. Noel TactiCath 65cm 3.5mm irrigated tipped mapping and radiofrequency ablation catheter was advanced. Esophageal probe was placed temperature monitoring during ablation. When it increased to 0.5 degrees Celsius above baseline, I moved to a different area of the atrium. First I did isolate the left superior and inferior vein. I did make a big [place] around the veins. Posterior was ablated. Then a roof line was created, a floor line was created, a mitral line was isolated, then the mitral valve was isolated. At that point the patient was in left atrial tachycardia. I did create a line from the floor to the roof area, passing by the left atrial appendage. Then the right superior and inferior veins were isolated. I did remap the atrium. There is no significant signal in the atrium. At this point I decided to proceed with cardioversion. A 200 sync biphasic joule was delivered that converted the patient into sinus rhythm. At that point I did advance the circumferential catheter again into the vein. There was no signal into the vein, pacing from the vein showed no conduction to the atrium. Isuprel infusion was initiated at 10 mcg for 15 minutes. No tachyarrhythmia was induced, post Isuprel no tachyarrhythmia was induced. At that point the procedure was complete. All catheters were removed, atrial septal sheath was exchanged for 9-[place] Hemaquet, intracardiac echo showed no pericardial effusion. There is still good flow in the pulmonary vein. The patient is going to be transferred to the recovery room. No incident report. The patient tolerated the procedure. Blood loss was minimal. FINDINGS 1. Electrocardiogram: At baseline the patient was in atrial fibrillation, post procedure the patient was in sinus rhythm. 2. Basic interval: Base cycle length was around 520. Post ablation she was around 900 milliseconds. AH at 122 and HV at 70 milliseconds. 3. Tachyarrhythmia: Atrial fibrillation was mapped and ablated. Atrial tachycardia was ablated. The ablation was successful. CONCLUSION Successful electrophysiology study, mapping, radiofrequency ablation of atrial fibrillation, left atrial tachycardia, pulmonary vein isolation, posterior ablation, mitral valve isolation, mitral line creation, roof line creation, floor line creation, left atrial tachycardia, and cardioversion. COMMENTS AND RECOMMENDATIONS The patient is going to be transferred to the telemetry unit. Will be observed and when stable can be discharged home. Jm Gregorio MD Dec 01, 2016 12:51
== END 2016-11-22 13:10 | disposition home or self-care (01) | DRG 274 ==
LOC: NEPC 09:10 → NEDA 12:05 → OBSVTOIN 12:08 → N04B 14:26 → HCIS 11-20 16:05
PROVIDERS: ADMIT Hospitalist; ATTEND Hospitalist
PROC: 02583ZZ Destruction of Conduction Mechanism, Percutaneous Approach (ICD-10-PCS; principal; 2016-11-20)
PROC: 4A0234Z Measurement of Cardiac Electrical Activity, Percutaneous Approach (ICD-10-PCS; 2016-11-20)
PROC: 02K83ZZ Map Conduction Mechanism, Percutaneous Approach (ICD-10-PCS; 2016-11-20)
PROC: 4A023N8 Measurement of Cardiac Sampling and Pressure, Bilateral, Percutaneous Approach (ICD-10-PCS; 2016-11-20)
PROC: 5A2204Z Restoration of Cardiac Rhythm, Single (ICD-10-PCS; 2016-11-20)
DX: I48.2 Chronic atrial fibrillation (principal); I31.3 Pericardial effusion (noninflammatory); N39.0 Urinary tract infection, site not specified; I34.0 Nonrheumatic mitral (valve) insufficiency; M06.9 Rheumatoid arthritis, unspecified; E03.9 Hypothyroidism, unspecified; I12.9 Hypertensive chronic kidney disease with stage 1 through stage 4 chronic kidney disease, or unspecified chronic kidney disease; R55 Syncope and collapse; J47.9 Bronchiectasis, uncomplicated; N18.2 Chronic kidney disease, stage 2 (mild); K21.9 Gastro-esophageal reflux disease without esophagitis; F40.240 Claustrophobia; R00.1 Bradycardia, unspecified; I47.1 Supraventricular tachycardia; Z79.01 Long term (current) use of anticoagulants; Z87.891 Personal history of nicotine dependence; Z85.828 Personal history of other malignant neoplasm of skin; Z87.440 Personal history of urinary (tract) infections
CPT/HCPCS: 71010; 76937; 80053; 80061; 80162; 82550; 82552; 83735; 83880; 84439; 84443; 84484; 85002; 85025; 85610; 85730; 92960; 93005; 93225; 93226; 93306; 93312; 93320; 93325; 93613; 93623; 93656; 93662; C1730; C1731; C1732; C1759; C1766; C2630; J1644; J1940; J2720; J3010; J7040

== ENCOUNTER 2016-11-28 10:41 | Emergency (ER) | payer MEDICARE ==
[~2016-11-28] VITALS: Ht 177.8 cm; Wt 68.0 kg
[~2016-11-28 10:41] MED LIST changes: +AMIO200T PO; -ASCO500C PO; -CEFU1TAB20 PO; +CEPH-460 PO; +COQ-100C2 PO; -COQ130CA4 PO; +COUM4TAB PO; -COUM4TAB7 PO; -DIGO0.25 PO; -FOLI1TAB PO; -JANT5TAB2 PO; +LACTCAP8 PO; +LEFL20TA11 PO; -LOSA50TA PO; +M2 M100C PO; -MAGN30TA PO; +MULT-135 PO; -NITR-29 PO; -PREM0.622 PO; -PROP40TA27 PO; +PROP40TA3 PO; -TAB-TAB PO; +TYLE325T PO; +VITA100018 PO; +VITA10007 PO; -VITA20003 PO; +WARF-58 PO
[2016-11-28 10:43] VITALS: BP 169/84; PULSE 75; RESP 15; TEMP 97.8; O2SAT 97
[2016-11-28 10:51] VITALS: BP 173/79; PULSE 72; RESP 26; TEMP 97.8; O2SAT 98
--- NOTE | 2016-11-28 11:12 | PD ---
HPI Chief Complaint: Cardiac Complaint Time Seen by Provider: 10:56 Travel History International Travel<30 days: No Contact w/Intl Traveler<30days: No Traveled to known affect area: No History of Present Illness HPI 81-year-old female complains of palpitation and irregular heartbeat. Patient states the symptoms started several days ago. Patient states that the symptoms started at night. Patient states the palpitation and rapid heartbeat lasted a few minutes and resolved completely. Patient denies any chest pain or shortness of breath with the palpitation. Patient has history of atrial fibrillation status post ablation on November 20, [address] Gregorio. Patient's on Coumadin, amiodarone and propranolol. Patient's also has history hypothyroidism and on levothyroxine. 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) Cardiovascular Problems: Yes High Cholesterol: No Chemotherapy: No Chest Pain: No Congestive Heart Failure: No COPD: No Cerebrovascular Accident: No Diabetes: No Diminished Hearing: No Endocrine: Yes Gastrointestinal Disorders: Yes (CHRONIC STAGEII) GERD: Yes Genitourinary: No Headaches: No Hepatitis: No Hiatal Hernia: No Heparin Induced Thrombocytopen: No Hypertension: Yes Immune Disorder: No Implanted Vascular Access Dvce: No Kidney Stones: No Musculoskeletal: Yes (TMJ, RHEUMATOID ARTHRITIS, HX OF BACK PROBLEMS) Neurologic: No Psychiatric: Yes (CLAUSTROPHOBIC FOR MRI) Reproductive: No Respiratory: No Immunizations Current: Yes Migraines: No Radiation Therapy: No Renal Failure: No Seizures: No Sickle Cell Disease: No Sleep Apnea: No Thyroid Disease: Yes (HYPO) Ulcer: No Tetanus Vaccination: < 5 Years Influenza Vaccination: Yes ?: Not Menopausal: Yes Past Surgical History Abdominal Surgery: Yes AICD: No Appendectomy: Yes Arteriovenous Shunt: No Cardiac Surgery: No Cholecystectomy: Yes Ear Surgery: No Endocrine Surgery: No Eye Surgery: Yes (BILATERAL LASER FOR GLAUCOMA) Genitourinary Surgery: No Gynecologic Surgery: Yes (HYSTERECTOMY ) Hysterectomy: Yes Insulin Pump: No Joint Replacement: No Neurologic Surgery: No Oral Surgery: Yes (TEETH EXTRACTION) Pacemaker: No Thoracic Surgery: No Other Surgery: Yes (PELVIC SLING) Social History Alcohol Use: No Tobacco Use: No Substance Use: No Allergies-Medications (Allergen,Severity, Reaction): Coded Allergies: Sulfa (Verified Allergy, Severe, ORAL SORES, 11/28/16) Ofloxacin (Verified Adverse Reaction, Severe, POSSIBLE A FIB, 11/28/16) Demerol (Verified Adverse Reaction, Unknown, SEVERE NAUSEA & VOMITING, 11/28) Doxycycline (Verified Adverse Reaction, Unknown, 11/28/16) INCREASED PAIN OF RHEUMATOID ARTHRITIS Reported Meds & Prescriptions Reported Meds & Active Scripts Active Propranolol (Propranolol HCl) 40 Mg Tab 40 Mg PO Q8HR Amiodarone (Amiodarone HCl) 200 Mg Tab 200 Mg PO DAILY Coumadin (Warfarin) 4 Mg Tab 4 Mg PO TU Take 1 tab (4mg) weekly on Tuesdays Reported Magnesium 100 Mg Cap 30 Mg PO DAILY Warfarin 3 Mg Tab 3 Mg PO [place] Take 1 tablet (3mg) on Wednesday,Wednesday,Wednesday,,Wednesday and Wednesday Keflex (Cephalexin) 500 Mg Cap 500 Mg PO HS Probiotic (Lactobacillus Acidophilus) 1 Cap Cap 1 Cap PO DAILY Leflunomide Unknown Strength Tab 20 Mg PO DAILY Multi Vitamin (Multiple Vitamin) 1 Tab Tab 1 Tab PO DAILY Levothyroxine (Levothyroxine Sodium) 50 Mcg Tab 50 Mcg PO DAILY Coq-10 (Coenzyme Q10 (Ubidecarenone)) 100 Mg Cap 100 Mg PO DAILY Vitamin D3 (Cholecalciferol) 1,000 Unit Tab 1,000 Units PO BID Calcium 500 Mg Tab 500 Mg PO DAILY Vitamin C (Ascorbic Acid) 1,000 Mg Tab 1,000 Mg PO TID Review of Systems General / Constitutional: No: Fever Eyes: No: Visual changes HENT: No: Headaches Cardiovascular: Positive: Palpitations, Irregular Rhythm, No: Chest Pain or Discomfort Respiratory: No: Shortness of Breath Gastrointestinal: No: Abdominal Pain Genitourinary: No: Dysuria Musculoskeletal: No: Pain Skin: No Rash Neurologic: No: Weakness Psychiatric: No: Depression Endocrine: No: Polydipsia Hematologic/Lymphatic: No: Easy Bruising Physical Exam Narrative GENERAL: Well-nourished, well-developed patient. SKIN: Warm and dry. HEAD: Normocephalic. EYES: No scleral icterus. No injection or drainage. NECK: Supple, trachea midline. No JVD or lymphadenopathy. CARDIOVASCULAR: Regular rate and rhythm without murmurs, gallops, or rubs. RESPIRATORY: Breath sounds equal bilaterally. No accessory muscle use. GASTROINTESTINAL: Abdomen soft, non-tender, nondistended. MUSCULOSKELETAL: No cyanosis, or edema. BACK: Nontender without obvious deformity. No CVA tenderness. Neurologic exam normal. Data Data Last Documented VS Vital Signs Date Time Temp Pulse Resp B/P Pulse Ox O2 Delivery O2 Flow Rate FiO2 11/28/16 11:17 71 20 173/79 97 Room Air 11/28/16 10:51 97.8 Orders Electrocardiogram (11/28/16 ) Complete Blood Count With Diff (11/28/16 11:06) Basic Metabolic Panel (Bmp) (11/28/16 11:06) Creatine Kinase (Cpk) (11/28/16 11:06) Troponin I (11/28/16 11:06) Prothrombin Time / Inr (Pt) (11/28/16 11:06) Act Partial Throm Time (Ptt) (11/28/16 11:06) Thyroid Stimulating Hormone (11/28/16 11:06) Chest, Single Ap (11/28/16 11:06) Iv Access Insert/Monitor (11/28/16 11:06) Ecg Monitoring (11/28/16 11:06) Oximetry (11/28/16 11:06) Labs Laboratory Tests Test 11/28/16 11:05 White Blood Count 6.0 TH/MM3 Red Blood Count 4.37 MIL/MM3 Hemoglobin 12.2 GM/DL Hematocrit 37.1 % Mean Corpuscular Volume 84.9 FL Mean Corpuscular Hemoglobin 28.0 PG Mean Corpuscular Hemoglobin 33.0 % Concent Red Cell Distribution Width 14.7 % Platelet Count 227 TH/MM3 Mean Platelet Volume 7.6 FL Neutrophils (%) (Auto) 70.8 % Lymphocytes (%) (Auto) 16.0 % Monocytes (%) (Auto) 9.6 % Eosinophils (%) (Auto) 2.8 % Basophils (%) (Auto) 0.8 % Neutrophils # (Auto) 4.3 TH/MM3 Lymphocytes # (Auto) 1.0 TH/MM3 Monocytes # (Auto) 0.6 TH/MM3 Eosinophils # (Auto) 0.2 TH/MM3 Basophils # (Auto) 0.0 TH/MM3 CBC Comment DIFF FINAL Differential Comment Prothrombin Time 25.4 SEC Prothromb Time International 2.2 RATIO Ratio Activated Partial 39.8 SEC Thromboplast Time Sodium Level 139 MEQ/L Potassium Level 3.8 MEQ/L Chloride Level 105 MEQ/L Carbon Dioxide Level 25.9 MEQ/L Anion Gap 8 MEQ/L Blood Urea Nitrogen 19 MG/DL Creatinine 0.71 MG/DL Estimat Glomerular Filtration 79 ML/MIN Rate Random Glucose 129 MG/DL Calcium Level 8.8 MG/DL Total Creatine Kinase 77 U/L Troponin I 0.04 NG/ML Thyroid Stimulating Hormone 2.130 uIU/ML 3rd Gen [facility] Medical Decision Making Medical Screen Exam Complete: Yes Emergency Medical Condition: Yes Interpretation(s) 11:12 AM. EKG shows sinus rhythm with first-degree AV block. Nonspecific ST-T wave change. 12:11 PM. Last Impressions Chest X-Ray 11/28/16 1106 Signed Impressions: Service Date/Time: Monday, November 28, 2016 11:36 - CONCLUSION: No acute disease. Rodrigo Haywood MD 12:11 PM. CBC within normal limit. BMP within normal limit. BUN 19. TSH 2.13. Troponin 0.04. INR 2.2. Differential Diagnosis Differential diagnosis including PACs, PVCs, atrial fibrillation. Narrative Course 81-year-old female with palpitation and irregular heartbeat. History of atrial fibrillation status post ablation. Patient's on the monitor without any evidence of arrhythmia. Diagnosis Primary Impression: Cardiac arrhythmia Qualified Code: I49.9 - Cardiac arrhythmia, unspecified cardiac arrhythmia type Patient Instructions: General Instructions Additional Instructions: Continue with medications as directed. Follow-up with personal physician. Return if worse. Med/Other Pt SpecificInfo: No Change to Meds Disposition: 01 DISCHARGE HOME Condition: Stable Nash Noyola MD Nov 28, 2016 11:12
[2016-11-28 11:17] VITALS: BP 173/79; PULSE 71; RESP 20; O2SAT 97
[2016-11-28 11:40] LABS: AUTOMATED NEUTROPHIL # 4.3 TH/MM3 (1.8-7.7); BASOPHIL % 0.8 % (0.0-2.0); EOSINOPHIL # 0.2 TH/MM3 (0-0.4); EOSINOPHIL % 2.8 % (0.0-4.0); HEMATOCRIT 37.1 % (35.0-46.0); HEMO FLAGS DIFF FINAL; MEAN CELL VOLUME 84.9 FL (80.0-100.0); MONO % 9.6 % (0.0-8.0); NEUT % 70.8 % (16.0-70.0); PLATELET COUNT 227 TH/MM3 (150-450); RED BLOOD COUNT 4.37 MIL/MM3 (4.00-5.30); RED CELL DISTRIBUTION WIDTH 14.7 % (11.6-17.2)
--- NOTE | 2016-11-28 11:50 | RADRPT ---
EXAM DATE/TIME: 11/28/2016 11:36 [facility] COMPARISON: CHEST SINGLE AP, November 14, 2016, 9:44. INDICATIONS : Chest palpitaions that started today. Ablation one week ago. MEDICAL HISTORY : A-fib. SURGICAL HISTORY : Ablation. ENCOUNTER: Initial ACUITY: 1 day PAIN SCORE: 4/10 LOCATION: Bilateral chest FINDINGS: A single view of the chest demonstrates the lungs to be symmetrically aerated without evidence of mas s, infiltrate or effusion. The cardiomediastinal contours are unremarkable. Osseous structures are intact. CONCLUSION: No acute disease. Rodrigo Haywood MD on November 28, 2016 at 11:47 Board Certified Radiologist. This report was verified electronically.
[2016-11-28 11:54] LABS: APTT (PATIENT) 39.8 SEC (24.3-30.1); INTERNATIONAL NORMALIZED RATIO 2.2 RATIO; PROTHROMBIN TIME - PATIENT 25.4 SEC (9.8-11.6)
[2016-11-28 11:59] LABS: BICARBONATE 25.9 MEQ/L (21.0-32.0); POTASSIUM 3.8 MEQ/L (3.5-5.1)
[2016-11-28 12:33] VITALS: BP 160/71
--- NOTE | 2016-11-29 11:52 | EKG ---
Date Performed: 11/28/2016 Time Performed: 11:02:53 PTAGE: 81 years EKG: Sinus rhythm WITH FIRST DEGREE AV BLOCK ABNORMAL ECG PREVIOUS TRACING : 11/28/2016 11.02 DOCTOR: Nika Wilson Interpretating Date/Time 11/29/2016 11:50:03
== END 2016-11-28 12:41 | disposition home or self-care (01) ==
LOC: NEPA 10:41
DX: I49.9 Cardiac arrhythmia, unspecified (principal); I10 Essential (primary) hypertension; K21.9 Gastro-esophageal reflux disease without esophagitis; E03.9 Hypothyroidism, unspecified; Z79.01 Long term (current) use of anticoagulants
CPT/HCPCS: 71010; 80048; 82550; 84443; 84484; 85025; 85610; 85730; 93005

== ENCOUNTER 2017-09-02 14:30 | Inpatient (IN) | payer MEDICARE ==
[~2017-09-02] VITALS: Ht 177.8 cm; Wt 68.4 kg
[2017-09-02] VITALS (8 sets, daily range): BP systolic 136–182; BP diastolic 71–84; PULSE 65–78; RESP 16–18; TEMP 97.8; O2SAT 92–98
[~2017-09-02 14:30] MED LIST changes: -TYLE325T PO
--- NOTE | 2017-09-02 16:02 | PD ---
HPI Chief Complaint: Dizziness Time Seen by Provider: 16:01 Travel History International Travel<30 days: No Contact w/Intl Traveler<30days: No Traveled to known affect area: No History of Present Illness HPI 82-year-old female came to the emergency room with history of sudden onset dizziness after she came back home after collecting her mail. This made her fall and hit her head on the floor. Patient did not lose consciousness. She is on Coumadin for atrial fibrillation. She says this happened at around 2 PM. Because of the Coumadin her son was concerned and brought her to the emergency room. Patient says that currently she does not feel as dizzy. She does have history of dizziness from time to time for past 6 months but has never fallen like this before. She has never addressed this dizziness with her primary care and it has never been worked up. Patient denies any ringing sensation in her ears or deafness. She was hypertensive when I arrived with blood pressure of 189 systolic. Patient denies of any headache or chest pain. She says after she fell she was able to get up from the floor and walk. She denies of any pain anywhere else. Patient had her INR checked this morning but does not know the result. As per the son there has not been any workup done for her dizziness so far. [facility] Past Medical History Narrative Medical list of her past medical, surgical, social and family history is reviewed from the nursing note. 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) High Cholesterol: No Chemotherapy: No Chest Pain: No Congestive Heart Failure: No COPD: No Cerebrovascular Accident: No Diabetes: No Diminished Hearing: No Endocrine: Yes Gastrointestinal Disorders: Yes (CHRONIC STAGEII) GERD: Yes Genitourinary: No Headaches: No Hepatitis: No Hiatal Hernia: No Heparin Induced Thrombocytopen: No Hypertension: Yes Immune Disorder: No Implanted Vascular Access Dvce: No Kidney Stones: No Musculoskeletal: Yes (TMJ, RHEUMATOID ARTHRITIS, HX OF BACK PROBLEMS) Neurologic: No Psychiatric: Yes (CLAUSTROPHOBIC FOR MRI) Reproductive: No Respiratory: No Immunizations Current: Yes Migraines: No Radiation Therapy: No Renal Failure: No Seizures: No Sickle Cell Disease: No Sleep Apnea: No Thyroid Disease: Yes (HYPO) Ulcer: No Influenza Vaccination: Yes ?: Not Menopausal: Yes Past Surgical History Abdominal Surgery: Yes AICD: No Appendectomy: Yes Arteriovenous Shunt: No Cardiac Surgery: Yes (ablation) Cholecystectomy: Yes Ear Surgery: No Endocrine Surgery: No Eye Surgery: Yes (BILATERAL LASER FOR GLAUCOMA) Genitourinary Surgery: No Gynecologic Surgery: Yes (HYSTERECTOMY ) Hysterectomy: Yes Insulin Pump: No Joint Replacement: No Neurologic Surgery: No Oral Surgery: Yes (TEETH EXTRACTION) Pacemaker: No Thoracic Surgery: No Other Surgery: Yes (PELVIC SLING) Social History Alcohol Use: No Tobacco Use: No Substance Use: No Allergies-Medications (Allergen,Severity, Reaction): Coded Allergies: Sulfa (Sulfonamide Antibiotics) (Unverified Allergy, Severe, ORAL SORES, 09/02/17) nitrofurantoin (Verified Allergy, Severe, Nausea/Vomiting, 09/02/17) ofloxacin (Unverified Adverse Reaction, Severe, POSSIBLE A FIB, 09/02/17) doxycycline (Unverified Adverse Reaction, Unknown, 09/02/17) INCREASED PAIN OF RHEUMATOID ARTHRITIS meperidine (Unverified Adverse Reaction, Unknown, SEVERE NAUSEA & VOMITING , 09/02/17) Comments List of her allergies reviewed from the nursing note. Reported Meds & Prescriptions Reported Meds & Active Scripts Active Propranolol (Propranolol HCl) 40 Mg Tab 40 Mg PO Q8HR Amiodarone (Amiodarone HCl) 200 Mg Tab 200 Mg PO DAILY Reported Vitamin C Tr (Ascorbic Acid) 500 Mg Caper 3,000 Mg PO DAILY Coq-10 (Coenzyme Q10 (Ubidecarenone)) 50 Mg Cap 100 Mg PO DAILY Thera M Plus (Multivitamins/Minerals Therapeutic) 1 Tab 1 Tab PO DAILY Doxepin (Doxepin HCl) 50 Mg Cap 50 Mg PO HS Warfarin 2 Mg Tab 2 Mg PO WEDNESDAY Warfarin 3 Mg Tab 3 Mg PO SUMOWETHFRSA Take 1 tablet (3mg) on Wednesday,Wednesday,Wednesday,,Wednesday and Wednesday Keflex (Cephalexin) 500 Mg Cap 500 Mg PO HS Leflunomide Unknown Strength Tab 20 Mg PO DAILY Levothyroxine (Levothyroxine Sodium) 50 Mcg Tab 50 Mcg PO DAILY Vitamin D3 (Cholecalciferol) 1,000 Unit Tab 1,000 Units PO BID Narrative Medication List of her home medications reviewed from the nursing note. Review of Systems Except as stated in HPI: all other systems reviewed are Neg Neurologic: Positive: Dizziness Physical Exam Narrative GENERAL: Awake, alert, elderly, anxious SKIN: Focused skin assessment warm/dry. Some ecchymosis and skin tear on the right dorsum of the wrist HEAD: Atraumatic. Normocephalic. EYES: Pupils equal and round. No scleral icterus. No injection or drainage. Right sided forehead contusion ENT: No nasal bleeding or discharge. Mucous membranes pink and moist. NECK: Trachea midline. No JVD. Goiter CARDIOVASCULAR: Regular rate and rhythm. No murmur appreciated. RESPIRATORY: No accessory muscle use. Clear to auscultation. Breath sounds equal bilaterally. GASTROINTESTINAL: Abdomen soft, non-tender, nondistended. Hepatic and splenic margins not palpable. MUSCULOSKELETAL: No obvious deformities. No clubbing. No cyanosis. No edema. NEUROLOGICAL: Awake and alert. No obvious cranial nerve deficits. Motor grossly within normal limits. Normal speech. PSYCHIATRIC: Appropriate mood and affect; insight and judgment normal. Data Data Last Documented VS Vital Signs Date Time Temp Pulse Resp B/P (MAP) Pulse Ox O2 Delivery O2 Flow Rate FiO2 09/02/17 17:01 66 18 155/71 (99) 98 Room Air 09/02/17 14:36 97.8 Orders Orders Electrocardiogram (09/02/17 16:12) Prothrombin Time / Inr (Pt) (09/02/17 16:12) Complete Blood Count With Diff (09/02/17 16:12) Basic Metabolic Panel (Bmp) (09/02/17 16:12) Creatine Kinase (Cpk) (09/02/17 16:12) Troponin I (09/02/17 16:12) Urinalysis - C+S If Indicated (09/02/17 16:12) Ct Brain W/O Iv Contrast(Rout) (09/02/17 16:12) Chest, Single Ap (09/02/17 16:12) Ecg Monitoring (09/02/17 16:12) Iv Access Insert/Monitor (09/02/17 16:12) Oximetry (09/02/17 16:12) Sodium Chloride 0.9% Flush (Ns Flush) (09/02/17 16:15) Meclizine (Antivert) (09/02/17 16:15) Orthostatic Vital Signs (09/02/17 16:12) Thyroid Stimulating Hormone (09/02/17 16:14) Urine Culture (09/02/17 16:20) B-Type Natriuretic Peptide (09/02/17 17:33) Nitrofurantoin Monohyd Macrocr (Macrobid (09/02/17 17:45) Admit Order (Ed Use Only) (09/02/17 17:54) Labs Laboratory Tests Test 09/02/17 16:20 09/02/17 16:55 09/02/17 16:58 Urine Color YELLOW Urine Turbidity SLIGHTY CLOUDY Urine pH 7.0 Urine Specific [place] 1.017 Urine Protein NEG mg/dL Urine Glucose (UA) NEG mg/dL Urine Ketones NEG mg/dL Urine Occult Blood NEG Urine Nitrite NEG Urine Bilirubin NEG Urine Leukocyte Esterase LARGE Urine WBC 25-49 /hpf Urine WBC Clumps RARE Urine Amorphous Sediment MOD Urine Bacteria FEW /hpf Microscopic Urinalysis Comment CULTURE INDICATED White Blood Count 5.3 TH/MM3 Red Blood Count 4.43 MIL/MM3 Hemoglobin 12.9 GM/DL Hematocrit 38.5 % Mean Corpuscular Volume 86.9 FL Mean Corpuscular Hemoglobin 29.1 PG Mean Corpuscular Hemoglobin Concent 33.5 % Red Cell Distribution Width 13.9 % Platelet Count 165 TH/MM3 Mean Platelet Volume 8.0 FL Neutrophils (%) (Auto) 63.7 % Lymphocytes (%) (Auto) 20.7 % Monocytes (%) (Auto) 12.1 % Eosinophils (%) (Auto) 2.6 % Basophils (%) (Auto) 0.9 % Neutrophils # (Auto) 3.5 TH/MM3 Lymphocytes # (Auto) 1.1 TH/MM3 Monocytes # (Auto) 0.6 TH/MM3 Eosinophils # (Auto) 0.1 TH/MM3 Basophils # (Auto) 0.0 TH/MM3 CBC Comment DIFF FINAL Differential Comment Prothrombin Time 21.0 SEC Prothromb Time International Ratio 1.8 RATIO Blood Urea Nitrogen 19 MG/DL Creatinine 1.00 MG/DL Random Glucose 95 MG/DL Calcium Level 8.6 MG/DL Sodium Level 137 MEQ/L Potassium Level 4.5 MEQ/L Chloride Level 103 MEQ/L Carbon Dioxide Level 27.4 MEQ/L Anion Gap 7 MEQ/L Estimat Glomerular Filtration Rate 53 ML/MIN Total Creatine Kinase 147 U/L Troponin I 0.40 NG/ML Thyroid Stimulating Hormone 3rd Gen 3.850 uIU/ML B-Type Natriuretic Peptide 62 PG/ML MDM Medical Decision Making Medical Screen Exam Complete: Yes Emergency Medical Condition: Yes Medical Record Reviewed: Yes Interpretation(s) Twelve-lead EKG was reviewed by me. Normal sinus rhythm, left axis deviation, nonspecific ST-T wave changes, first-degree AV block. Heart rate of 65 bpm. Differential Diagnosis BPV, intracranial bleed, electrolyte abnormality, TIA Narrative Course 4:32 PM awaiting for the blood test results. I've ordered orthostatic vital signs, CT scan of her head as well as carotid Dopplers. If all the test results are within normal limit patient will be discharged home. Her son was quite concerned and wanted to make sure that she was safe to be discharged home. I have reassured him. 5:27 PM the custom miller came to check the carotids and the son at that point told her that patient had her carotid ultrasound done 1 week ago and patient's primary care let him know that she had minimal blockage. Given this I have canceled the carotid ultrasound order. CT scan of the head is negative for any intracranial bleed. CBC shows slight leukocytosis and UA is positive for UTI. I'm waiting for the chemistry and INR. Patient was given a dose of meclizine. Her son apologized that he had failed to mention about the ultrasound when I had asked for any workup done by the primary care for dizziness. 5:48 PM blood test results came back and patient's troponin is elevated 0.4. I discussed this with patient's solar systems designer Dr. Baker who is okay with the patient being in [place] and not transferred to [facility]. He did not want the patient to be started on heparin yet. The hospitalist will admit her. I have informed the son and the patient regarding this. Patient was given a dose of Macrobid for her UTI. Procedures EKG Prior to Arrival: No Physician Communication Physician Communication Dr. Baker Diagnosis Primary Impression: Dizziness Additional Impressions: Elevated troponin I level Head injury Qualified Codes: S09.90XA - Unspecified injury of head, initial encounter UTI (urinary tract infection) Qualified Codes: N39.0 - Urinary tract infection, site not specified Hypothyroidism Qualified Codes: E03.9 - Hypothyroidism, unspecified Admitting Information Admitting Physician Requests: Admit Scripts Alprazolam (Xanax) 0.25 Mg Tab 0.25 MG PO Q8H Y for anxiety, #15 TAB 0 Refills Prov: Cleveland Li DO 09/05/17 Escitalopram (Escitalopram) 10 Mg Tab 10 MG PO DAILY for anxiety, #30 TAB 0 Refills Prov: Kamala Syed 09/05/17 Lisinopril (Lisinopril) 5 Mg Tab 2.5 MG PO DAILY for blood pressure, heart, #30 TAB Prov: Kamala Syed 09/05/17 Atorvastatin (Atorvastatin) 20 Mg Tab 20 MG PO DAILY for cholesterol, #30 TAB Prov: Kamala Syed 09/05/17 Ciprofloxacin (Cipro) 500 Mg Tab 250 MG PO Q12HR for antibiotic. UTI, #5 TAB 0 Refills Prov: Kamala Syed 09/05/17 Cy Mendoza MD Sep 02, 2017 16:02
[2017-09-02] MEDS ORDERED: WARF4TAB51 PO (16:03)
[2017-09-02] MEDS ORDERED: DOXE50CA3 PO (16:04)
[2017-09-02] MEDS ORDERED: ASCO1CAP PO (16:04)
[2017-09-02] MEDS ORDERED: THERM PO (16:04)
[2017-09-02] MEDS ORDERED: COQ-50CA2 PO (16:04)
[2017-09-02] MEDS ORDERED: SODIUM CHLORIDE 0.9% FLUSH 10 ML FLUSH IVF PRN (16:15)
[2017-09-02] MEDS ORDERED: MECLIZINE HCL 25 MG TAB PO ONE (16:15)
--- NOTE | 2017-09-02 16:46 | RADRPT ---
EXAM DATE/TIME: 09/02/2017 16:28 [facility] COMPARISON: CT BRAIN W/O CONTRAST, September 21, 2014, 9:47. INDICATIONS : Fell and hit left forehead. Unsteady gate. Evaluate for cerebrovascular accident. RADIATION DOSE: 60.50 CTDIvol (mGy) MEDICAL HISTORY : Cardiovascular disease. Renal failure, chronic. Hypertension. SURGICAL HISTORY : Appendectomy. Cholecystectomy.Hysterectomy. ENCOUNTER: Initial ACUITY: 1 day PAIN SCALE: 4/10 LOCATION: cranial TECHNIQUE: Multiple contiguous axial images were obtained of the head. Using automated exposure control and adj ustment of the mA and/or kV according to patient size, radiation dose was kept as low as reasonably a chievable to obtain optimal diagnostic quality images. DICOM format image data is available electro nically for review and comparison. FINDINGS: CEREBRUM: There is mild generalized atrophy. Ventricles are mildly prominent but stable. No evidence of midlin e shift, mass lesion, hemorrhage or acute infarction. No extra-axial fluid collections are seen. POSTERIOR FOSSA: The cerebellum and brainstem demonstrate no acute finding. The 4th ventricle is midline. The cerebe llopontine angle is unremarkable. EXTRACRANIAL: There is chronic opacification of the right sphenoid sinus with mild osteitis of the adjacent sinus w alls. SKULL: The calvaria is intact. No evidence of skull fracture. CONCLUSION: 1. No acute intracranial abnormality is identified. 2. Chronic right sphenoid sinus disease. Diego Johnston MD on September 02, 2017 at 16:42 Board Certified Radiologist. This report was verified electronically.
[2017-09-02 16:47] LABS: BLOOD, URINE NEG (NEG); GLUCOSE,URINE NEG (NEG); KETONE, URINE NEG (NEG); NITRITE,URINE NEG (NEG)
--- NOTE | 2017-09-02 17:10 | RADRPT ---
EXAM DATE/TIME: 09/02/2017 16:40 [facility] COMPARISON: CHEST SINGLE AP, November 28, 2016, 11:36. INDICATIONS : Chest discomfort; fall today. MEDICAL HISTORY : Cardiovascular disease. Renal failure, chronic. Hypertension SURGICAL HISTORY : Appendectomy. Cholecystectomy.Hysterectomy ENCOUNTER: Initial ACUITY: 1 day PAIN SCORE: 1/10 LOCATION: Bilateral chest FINDINGS: Diffuse interstitial prominence is noted. Lizz B-lines are identified in the bases. There is no kyung dence of consolidating airspace disease. Heart is normal in size. There is no evidence of hilar or mediastinal fullness. Osseous structures appear intact. CONCLUSION: 1. Generalized interstitial prominence presenting either interstitial pneumonitis or possibly early p ulmonary edema. 2. No other significant abnormality. Dequan Nuñez MD on September 02, 2017 at 17:07 Board Certified Radiologist. This report was verified electronically.
[2017-09-02 17:13] LABS: AUTOMATED NEUTROPHIL # 3.5 TH/MM3 (1.8-7.7); BASOPHIL % 0.9 % (0.0-2.0); EOSINOPHIL # 0.1 TH/MM3 (0-0.4); EOSINOPHIL % 2.6 % (0.0-4.0); HEMATOCRIT 38.5 % (35.0-46.0); HEMO FLAGS DIFF FINAL; LYMPH % 20.7 % (9.0-44.0); LYMPHOCYTE # 1.1 TH/MM3 (1.0-4.8); MEAN CELL VOLUME 86.9 FL (80.0-100.0); MEAN CORPUSCULAR HEMOGLOBIN 29.1 PG (27.0-34.0); MEAN CORPUSCULAR HGB CONC 33.5 % (32.0-36.0); MONO % 12.1 % (0.0-8.0); NEUT % 63.7 % (16.0-70.0); PLATELET COUNT 165 TH/MM3 (150-450); RED BLOOD COUNT 4.43 MIL/MM3 (4.00-5.30); RED CELL DISTRIBUTION WIDTH 13.9 % (11.6-17.2); WHITE BLOOD COUNT 5.3 TH/MM3 (4.0-11.0)
[2017-09-02 17:14] LABS: URINE COLOR YELLOW (YELLW/STRAW)
[2017-09-02 17:24] LABS: BACTERIA, URINE FEW /hpf; COMMENT (UR) CULTURE INDICATED; CULTURE IF INDICATED CULTURE INDICATED
[2017-09-02 17:26] LABS: POTASSIUM 4.5 MEQ/L (3.5-5.1)
[2017-09-02 17:30] LABS: BICARBONATE 27.4 MEQ/L (21.0-32.0)
[2017-09-02 17:31] LABS: INTERNATIONAL NORMALIZED RATIO 1.8 RATIO
[2017-09-02] MEDS ORDERED: NITROFURANTOIN MONOHYD MACROCR 100 MG CAP PO ONE (17:45)
[2017-09-02] MEDS ORDERED: cefTRIAXone INJ 1,000 MG in SODIUM CHLORIDE 0.9% INJ 100 ML IV ONE (18:15)
[2017-09-02] MEDS ORDERED: NALOXONE HCL 0.4 MG/ML AMP IV PUSH PRN (18:30)
[2017-09-02] MEDS ORDERED: BISACODYL 10 MG SUPP RECTAL PRN (18:30)
[2017-09-02] MEDS ORDERED: SENNOSIDES 8.6 MG TAB PO PRN (18:30)
[2017-09-02] MEDS ORDERED: LACTULOSE SYRUP 20 GM/30 ML CUP PO PRN (18:30)
[2017-09-02] MEDS ORDERED: MAGNESIUM HYDROXIDE SUSP 30 ML CUP PO PRN (18:30)
[2017-09-02] MEDS ORDERED: SODIUM CHLORIDE 0.9% FLUSH 10 ML FLUSH IV FLUSH PRN (18:30)
[2017-09-02] MEDS: WARFARIN SOD 3 MG TAB PO SCH (19:23)
[2017-09-02] MEDS ORDERED: CHOLECALCIFEROL (VIT D3) 1000 UNIT TAB PO SCH (21:00)
[2017-09-02] MEDS ORDERED: DOCUSATE SODIUM 50 MG/SENNA 8.6 MG TAB PO SCH (21:00)
[2017-09-02] MEDS ORDERED: CEPHALEXIN MONOHYDRATE 500 MG CAP PO SCH (21:00)
--- NOTE | 2017-09-02 22:00 | HHI.HP ---
HPI Service [facility] Hospitalists Primary Care Physician Dany Gallardo MD Admission Diagnosis elevated troponin, dizziness, hypothyroidism Chief Complaint: dizziness near syncopal episode today Travel History International Travel<30 Days: No Contact w/Intl Traveler <30 Da: No Traveled to Known Affected Are: No History of Present Illness 82-year-old female came to the emergency room with history of sudden onset dizziness after she came back home after collecting her mail. This made her fall and hit her head on the floor. Patient did not lose consciousness. She is on Coumadin for atrial fibrillation. She says this happened at around 2 PM. Because of the Coumadin her son was concerned and brought her to the emergency room. Patient says that currently she does not feel as dizzy. She does have history of dizziness from time to time for past 4months but has never fallen like this before. Son says really has had unsteady gait associated with the dizziness for 4 months and was worse today. Patient has history of atrial fib and had ablation 11/10 and has been in sinus since. Patient denies any ringing sensation in her ears or deafness. She was hypertensive when I arrived with blood pressure of 189 systolic. Patient denies of any headache or chest pain. She says after she fell she was able to get up from the floor and walk. She denies of any pain anywhere else. Patient had her INR checked this morning but does not know the result. Patient had recent normal carotid ultrasound . In er work included troponin level which was slightly elevated and cardiac was notified and was admitted for evaluation. Review of Systems Constitutional: COMPLAINS OF: Dizziness Neurologic: COMPLAINS OF: Abnormal gait Past Family Social History Past Medical History a fib s/p ablation cancer face,GERD djd back,neck,hypothyroid,RA Past Surgical History laser glaucoma,hysterectomy,dental surgery pelvic sling chronic uti on chronic keflex daily Reported Medications Propranolol (Propranolol HCl) 40 Mg Tab 40 Mg PO Q8HR Amiodarone (Amiodarone HCl) 200 Mg Tab 200 Mg PO DAILY Reported Vitamin C Tr (Ascorbic Acid) 500 Mg Caper 3,000 Mg PO DAILY Coq-10 (Coenzyme Q10 (Ubidecarenone)) 50 Mg Cap 100 Mg PO DAILY Thera M Plus (Multivitamins/Minerals Therapeutic) 1 Tab 1 Tab PO DAILY Doxepin (Doxepin HCl) 50 Mg Cap 50 Mg PO HS Warfarin 2 Mg Tab 2 Mg PO WEDNESDAY Warfarin 3 Mg Tab 3 Mg PO DAPHNEY Take 1 tablet (3mg) on Wednesday,Wednesday,Wednesday,,Wednesday and Wednesday Keflex (Cephalexin) 500 Mg Cap 500 Mg PO HS Leflunomide Unknown Strength Tab 20 Mg PO DAILY Levothyroxine (Levothyroxine Sodium) 50 Mcg Tab 50 Mcg PO DAILY on wed and wednesday takes two 50mcg Vitamin D3 (Cholecalciferol) 1,000 Unit Tab 1,000 Units PO BID Allergies: Coded Allergies: Sulfa (Sulfonamide Antibiotics) (Unverified Allergy, Severe, ORAL SORES, 09/02/17) nitrofurantoin (Verified Allergy, Severe, Nausea/Vomiting, 09/02/17) ofloxacin (Unverified Adverse Reaction, Severe, POSSIBLE A FIB, 09/02/17) doxycycline (Unverified Adverse Reaction, Unknown, 09/02/17) INCREASED PAIN OF RHEUMATOID ARTHRITIS meperidine (Unverified Adverse Reaction, Unknown, SEVERE NAUSEA & VOMITING , 09/02/17) Social History NS,ND Physical Exam Vital Signs Vital Signs Date Time Temp Pulse Resp B/P (MAP) Pulse Ox O2 Delivery O2 Flow Rate FiO2 09/02/17 20:44 66 18 99 09/02/17 19:43 68 18 141/76 (97) 97 Room Air 09/02/17 18:25 70 18 162/82 (108) 97 Room Air 09/02/17 17:01 66 18 155/71 (99) 98 Room Air 09/02/17 16:33 66 18 136/77 (96) 68 18 163/78 (106) 69 18 155/71 (99) 09/02/17 16:20 65 18 182/82 (115) 96 Room Air 09/02/17 14:36 97.8 78 16 178/84 (115) 97 Physical Exam GENERAL: This is a well-nourished, well-developed patient, in no apparent distress. some dizziness on sitting up SKIN: No rashes, ecchymoses or lesions. Cool and dry. HEAD: Atraumatic. Normocephalic. No temporal or scalp tenderness. EYES: Pupils equal round and reactive. Extraocular motions intact. No scleral icterus. No injection or drainage. ENT: Nose without bleeding, purulent drainage or septal hematoma. Throat without erythema, tonsillar hypertrophy or exudate. Uvula midline. Airway patent. NECK: Trachea midline. No JVD or lymphadenopathy. Supple, nontender, no meningeal signs. CARDIOVASCULAR: Regular rate and rhythm without murmurs, gallops, or rubs. RESPIRATORY: Clear to auscultation. Breath sounds equal bilaterally. No wheezes , rales, or rhonchi. GASTROINTESTINAL: Abdomen soft, non-tender, nondistended. No hepato-splenomegaly , or palpable masses. No guarding. MUSCULOSKELETAL: Extremities without clubbing, cyanosis, or edema. No joint tenderness, effusion, or edema noted. No calf tenderness. Negative Homans sign bilaterally. NEUROLOGICAL: Awake and alert. Cranial nerves II through XII intact. Motor and sensory grossly within normal limits. Five out of 5 muscle strength in all muscle groups. Normal speech. Laboratory Laboratory Tests Test 09/02/17 16:20 09/02/17 16:55 09/02/17 16:58 Urine Color YELLOW Urine Turbidity SLIGHTY CLOUDY Urine pH 7.0 Urine Specific [place] 1.017 Urine Protein NEG Urine Glucose (UA) NEG Urine Ketones NEG Urine Occult Blood NEG Urine Nitrite NEG Urine Bilirubin NEG Urine Leukocyte Esterase LARGE Urine WBC 25-49 Urine WBC Clumps RARE Urine Amorphous Sediment MOD Urine Bacteria FEW Microscopic Urinalysis Comment CULTURE INDICATED White Blood Count 5.3 Red Blood Count 4.43 Hemoglobin 12.9 Hematocrit 38.5 Mean Corpuscular Volume 86.9 Mean Corpuscular Hemoglobin 29.1 Mean Corpuscular Hemoglobin Concent 33.5 Red Cell Distribution Width 13.9 Platelet Count 165 Mean Platelet Volume 8.0 Neutrophils (%) (Auto) 63.7 Lymphocytes (%) (Auto) 20.7 Monocytes (%) (Auto) 12.1 Eosinophils (%) (Auto) 2.6 Basophils (%) (Auto) 0.9 Neutrophils # (Auto) 3.5 Lymphocytes # (Auto) 1.1 Monocytes # (Auto) 0.6 Eosinophils # (Auto) 0.1 Basophils # (Auto) 0.0 CBC Comment DIFF FINAL Differential Comment Prothrombin Time 21.0 Prothromb Time International Ratio 1.8 Blood Urea Nitrogen 19 Creatinine 1.00 Random Glucose 95 Calcium Level 8.6 Sodium Level 137 Potassium Level 4.5 Chloride Level 103 Carbon Dioxide Level 27.4 Anion Gap 7 Estimat Glomerular Filtration Rate 53 Total Creatine Kinase 147 Troponin I 0.40 Thyroid Stimulating Hormone 3rd Gen 3.850 B-Type Natriuretic Peptide 62 Date/Time Source Procedure Growth Status 09/02/17 19:18 Blood Peripheral Aerobic Blood Culture Pending Received 09/02/17 19:18 Blood Peripheral Anaerobic Blood Culture Pending Received 09/02/17 16:20 Urine Clean Catch Urine Culture Pending Received Result Diagram: 09/02/17 1655 09/02/17 1655 Imaging Last [address] 09/02/171611 Signed Impressions: Service Date/Time: August 16:28 - CONCLUSION: 1. No acute intracranial abnormality is identified. 2. Chronic right sphenoid sinus disease. Diego Johnston MD Chest X-Ray 09/02/171611 Signed Impressions: Service Date/Time: August 16:40 - CONCLUSION: 1. Generalized interstitial prominence presenting either interstitial pneumonitis or possibly early pulmonary edema. 2. No other significant abnormality. Dequan Nuñez MD Course in er given rocephin as has uti on urine test discussed with cardiology and repeat labs ordered Caprini VTE Risk Assessment Caprini VTE Risk Assessment: Mod/High Risk (score >= 2) Caprini Risk Assessment Model Point Value = 1 Point Value = 2 Point Value = 3 Point Value = 5 Age 41-60 Minor surgery BMI > 25 kg/m2 Swollen legs Varicose veins or History of unexplained or recurrent spontaneous Oral contraceptives or hormone replacement Sepsis (< 1 month) Serious lung disease, including pneumonia (< 1 month) Abnormal pulmonary function Acute myocardial infarction Congestive heart failure (< 1 month) History of inflammatory bowel disease Medical patient at bed rest Age 61-74 Arthroscopic surgery Major open surgery (> 45 min) Laparoscopic surgery (> 45 min) Malignancy Confined to bed (> 72 hours) Immobilizing plaster cast Central venous access Age >= 75 History of VTE Family history of VTE Factor V Leiden Prothrombin [id number] Lupus anticoagulant Anticardiolipin antibodies Elevated serum homocysteine Heparin-induced thrombocytopenia Other congenital or acquired thrombophilia Stroke (< 1 month) Elective arthroplasty Hip, pelvis, or leg fracture Acute spinal cord injury (< 1 month) Prophylaxis Regimen Total Risk Factor Score Risk Level Prophylaxis Regimen 0-1 Low Early ambulation 2 Moderate Order ONE of the following: *Sequential Compression Device (SCD) *Heparin 5000 units SQ BID 3-4 Higher Order ONE of the following medications: *Heparin 5000 units SQ TID *Enoxaparin/Lovenox 40 mg SQ daily (WT < 150 kg, CrCl > 30 mL/min) *Enoxaparin/Lovenox 30 mg SQ daily (WT < 150 kg, CrCl > 10-29 mL/min) *Enoxaparin/Lovenox 30 mg SQ BID (WT < 150 kg, CrCl > 30 mL/min) AND/OR *Sequential Compression Device (SCD) 5 or more Highest Order ONE of the following medications: *Heparin 5000 units SQ TID (Preferred with Epidurals) *Enoxaparin/Lovenox 40 mg SQ daily (WT < 150 kg, CrCl > 30 mL/min) *Enoxaparin/Lovenox 30 mg SQ daily (WT < 150 kg, CrCl > 10-29 mL/min) *Enoxaparin/Lovenox 30 mg SQ BID (WT < 150 kg, CrCl > 30 mL/min) AND *Sequential Compression Device (SCD) Assessment and Plan Problem List: (1) Pre-syncope ICD Codes: R55 - Syncope and collapse Status: Acute Plan: diziness with some gait difficulty will get mri brain recent carotid ultrasound negative has hx atfib will monitor (2) Dizziness ICD Codes: R42 - Dizziness and giddiness Status: Acute Plan: as above blood pressure was high in er will monitor is on propranolol (3) Elevated troponin I level ICD Codes: R74.8 - Abnormal levels of other serum enzymes Status: Acute Plan: recheck ekg and enzyme in am cardiology consulted (4) Gait difficulty ICD Codes: R26.9 - Unspecified abnormalities of gait and mobility Plan: will need PT evaluation once tests are back (5) Hypothyroidism ICD Codes: E03.9 - Hypothyroidism Status: Chronic Plan: tsh was a little high take 50mcg daily and on wed and wednesday takes 2 tablets (6) UTI (urinary tract infection) ICD Codes: N39.0 - UTI (urinary tract infection) Status: Chronic Plan: is on chronic keflex daily will use rocephin 1 gm IV Assessment and Plan further plan as case progresses Code Status full Discussed Condition With patient and son Physician Certification 2 Midnight Certification Type: Admission for Inpatient Services Order for Inpatient Services The services are ordered in accordance with Medicare regulations or non- Medicare payer requirements, as applicable. In the case of services not specified as inpatient-only, they are appropriately provided as inpatient services in accordance with the 2-midnight benchmark. Estimated LOS (days): 3 3 days is the estimated time the patient will need to remain in the hospital, assuming treatment plan goals are met and no additional complications. Post-Hospital Plan: Not yet determined Problem Qualifiers (1) Hypothyroidism: Qualified Codes: E03.9 - Hypothyroidism, unspecified (2) UTI (urinary tract infection): Qualified Codes: N39.0 - Urinary tract infection, site not specified Nixon King MD Sep 02, 2017 22:00
[2017-09-02] MEDS: cefTRIAXone INJ 1,000 MG in SODIUM CHLORIDE 0.9% INJ 100 ML IV SCH (23:06)
[2017-09-02] MEDS: DOXEPIN HCL 50 MG CAP PO SCH (23:07)
[2017-09-02] MEDS: PROPRANOLOL HCL 40 MG TAB PO SCH (23:07)
[2017-09-02] MEDS: SODIUM CHLORIDE 0.9% FLUSH 10 ML FLUSH IV FLUSH SCH (23:08)
[2017-09-03] VITALS (9 sets, daily range): BP systolic 105–141; BP diastolic 56–75; PULSE 61–92; RESP 16–18; TEMP 96.9–98.9; O2SAT 92–98
[2017-09-03] MEDS: LEVOTHYROXINE SODIUM 50 MCG TAB PO SCH (06:14)
[2017-09-03] MEDS: PROPRANOLOL HCL 40 MG TAB PO SCH ×2 (06:14→22:17)
--- NOTE | 2017-09-03 08:54 | HHI.PR ---
Subjective Remarks Patient troponin has increased to 5 will be transferred to [facility] for cardiac cath ,patient states has ahd some neck and mid chest discomfort during night but did not notify anyone . Patient monitor showed no acute changes . Will hold coumadin as per cardiology and hold MRI for now as well. Objective Vitals GENERAL: SKIN: Warm and dry. HEAD: Atraumatic. Normocephalic. EYES: Pupils equal and round. No scleral icterus. No injection or drainage. ENT: No nasal bleeding or discharge. Mucous membranes pink and moist. NECK: Trachea midline. No JVD. CARDIOVASCULAR: Regular rate and rhythm. RESPIRATORY: No accessory muscle use. Clear to auscultation. Breath sounds equal bilaterally. GASTROINTESTINAL: Abdomen soft, non-tender, nondistended. Hepatic and splenic margins not palpable. MUSCULOSKELETAL: Extremities without clubbing, cyanosis, or edema. No obvious deformities. NEUROLOGICAL: Awake and alert. No obvious cranial nerve deficits. Motor grossly within normal limits. Five out of 5 muscle strength in the arms and legs. Normal speech. PSYCHIATRIC: Appropriate mood and affect; insight and judgment normal. Vital Signs Date Time Temp Pulse Resp B/P (MAP) Pulse Ox O2 Delivery O2 Flow Rate FiO2 09/03/17 08:00 96.9 64 18 126/72 (90) 95 09/03/17 04:00 98.9 70 16 118/68 (85) 97 09/03/17 00:00 98.9 72 16 141/75 (97) 97 09/02/17 23:45 68 09/02/17 20:44 66 18 99 09/02/17 20:00 97.8 70 16 156/76 (102) 92 09/02/17 19:43 68 18 141/76 (97) 97 Room Air 09/02/17 18:25 70 18 162/82 (108) 97 Room Air 09/02/17 17:01 66 18 155/71 (99) 98 Room Air 09/02/17 16:33 66 18 136/77 (96) 68 18 163/78 (106) 69 18 155/71 (99) 09/02/17 16:20 65 18 182/82 (115) 96 Room Air 09/02/17 14:36 97.8 78 16 178/84 (115) 97 Result Diagram: 09/02/17 2011 09/02/17 1650 Imaging Last [address] 09/02/17 1612 Signed Impressions: Service Date/Time: August 16:28 - CONCLUSION: 1. No acute intracranial abnormality is identified. 2. Chronic right sphenoid sinus disease. Diego Johnston MD Chest X-Ray 09/02/17 1612 Signed Impressions: Service Date/Time: August 16:40 - CONCLUSION: 1. Generalized interstitial prominence presenting either interstitial pneumonitis or possibly early pulmonary edema. 2. No other significant abnormality. Dequan Nuñez MD A/P Problem List: (1) Pre-syncope ICD Codes: R55 - Syncope and collapse Status: Acute Plan: diziness with some gait difficulty will get mri brain recent carotid ultrasound negative has hx atfib will monitor (2) Dizziness ICD Codes: R42 - Dizziness and giddiness Status: Acute Plan: as above blood pressure was high in er will monitor is on propranolol (3) Elevated troponin I level ICD Codes: R74.8 - Abnormal levels of other serum enzymes Status: Acute Plan: recheck ekg and enzyme in am cardiology consulted monitor no significant changes but troponin increased to 5 transfer to [facility] for cath this am. (4) Gait difficulty ICD Codes: R26.9 - Unspecified abnormalities of gait and mobility Plan: will need PT evaluation once tests are back (5) Hypothyroidism ICD Codes: E03.9 - Hypothyroidism Status: Chronic Plan: tsh was a little high take 50mcg daily and on wed and wednesday takes 2 tablets (6) UTI (urinary tract infection) ICD Codes: N39.0 - UTI (urinary tract infection) Status: Chronic Plan: is on chronic keflex daily will use rocephin 1 gm IV Problem Qualifiers (1) Hypothyroidism: Qualified Codes: E03.9 - Hypothyroidism, unspecified (2) UTI (urinary tract infection): Qualified Codes: N39.0 - Urinary tract infection, site not specified Nixon King MD Sep 03, 2017 08:54
[2017-09-03] MEDS ORDERED: NON-FORMULARY DRUG (Coenzyme Q10 (Ubidecarenone) (Coq-10) 100 MG) PO SCH (09:00)
[2017-09-03] MEDS ORDERED: LEFLUNOMIDE 20 MG TAB PO SCH (09:00)
[2017-09-03] MEDS ORDERED: AMIODARONE 200 MG TAB PO SCH (09:00)
[2017-09-03] MEDS ORDERED: ASCORBIC ACID PO SCH (09:00)
[2017-09-03] MEDS ORDERED: MULTIVITAMINS/MINERALS THERAPEUTIC TAB PO SCH (09:00)
[2017-09-03] MEDS ORDERED: MIDAZOLAM HCL 2 MG/2 ML VIAL ONE (10:48)
[2017-09-03] MEDS ORDERED: HEPARIN-NS/PF INJ 1,000 ML ONE (10:48)
[2017-09-03] MEDS ORDERED: HEPARIN SODIUM - IV 10,000 UNITS/10 ML VIAL ONE (10:49)
[2017-09-03] MEDS ORDERED: NITROGLYCERIN INJ 5 ML ONE (10:51)
[2017-09-03] MEDS ORDERED: MISC INFORMATION XX ONE (11:45)
--- NOTE | 2017-09-03 11:48 | CATHPROC ---
Patient Name: MAGALIS SHERIFF Study #: [id number] Initial MD: Steve Lawson Date of : 1935 Study Date: 09/03/2017 Cardiac Catheterization Report 09/03/2017 11:48:28 AM Financial #: [id number] 1 of 11 Patient Name: MAGALIS SHERIFF Study #: [id number] Initial MD: Steve Lawson Date of : 1935 Study Date: 09/03/2017 Entire Case Report Patient Information Patient Name MAGALIS SHERIFF Date of 1935 Age 82 years Financial # [id number] Gender F AlternateID Lab Number 3 Accession # Room Number Height (in) 69.7 Height (cm) 177.0 BSA 2.13 Weight (lbs) 211.2 Weight (kg) 96.0 Patient Address/Phone Number Home Address [facility] Home Phone Number [phone] [facility] [id number] Study Information Study Number Scheduled Start Study Start [id number] 09/03/2017 Sep 03 2017 10:39AM Referring Institution Admit Source Facility Department 1 Transfer in from another acute care facility [facility] Assistant Physician and Clinical Staff Initial Steve Jones RN, Darrion RamonRN Recorder Candido Thorne RCIS(BS) Scrub Paolo Latham RT(R) Procedures Performed Procedure Location (Site) Vessel Name Angiogram LV Aortic Coronary Angiograms LCA Left Coronary Coronary Angiograms RCA Right Coronary L Heart Cath 09/03/2017 11:48:28 AM Financial #: [id number] 2 of 11 Patient Name: MAGALIS SHERIFF Study #: [id number] Initial MD: Steve Lawson Date of : 1935 Study Date: 09/03/2017 Equipment Time Personal Injury Litigation Paralegal Description Size Mfg Part Number Used/Scraped TRANSDUCER, TRUWAVE [id number] 11:05 BONILLA TSE * Used W/STOCKCOCK *[id number] [id number] *[id number] [id number] *[id number] [id number] *[id number] 11:05 [employer] INDUSTRIES PACK, CCL CUSTOM * Used *[id number] 11:05 [employer] SUPPORT, ARTERIAL ADULT 63415 *[id number] Used [id number] 11:05 MEDLINE PACER PEN, SKIN DUAL W/ RULER * Used *[id number] BAND, RADIAL COMPRESSION TR [id number] 11:34 [employer] MEDICAL 24CM Used SHORT 24 *[id number] SHEATH, FR6 RADIAL PRELUDE 11:05 [employer] FR 6 [id number] Used EASE 11CM [id number] 11:05 [employer] WIRE, EXCHANGE 260CM 3MMJ 260CM Used *[id number] 11:05 [employer] OMNIPAQUE, 350 MG, 150ML 150ML [id number] Used [id number] 11:05 [facility] BLANKET,WARM AIR CCL * Used *[id number] Insurance Information Insurance Payor Private Health Insurance Third Constitution Party Third Constitution Party Number FHC - MCR O FHCMCRHMO History: Allergies Allergy Reaction Sulfa (Sulfonamide Antibiotics) ORAL SORES doxycycline ofloxacin POSSIBLE A FIB meperidine SEVERE NAUSEA nitrofurantoin Nausea/Vomiting 09/03/2017 11:48:28 AM Financial #: [id number] Patient Name: MAGALIS SHERIFF Study #: [id number] Initial MD: Steve Lawson Date of : 1935 Study Date: 09/03/2017 History: Risk Factors Family History of Hypertension Dyslipidemia Previous MT Previous Heart Failure Premature CAD Yes Yes No No No Prior Valve Prior PCI Prior CABG Surgery No No No Cerebrovascular Peripheral Artery Chronic Lung On Dialysis Diabetes Disease Disease Disease No No No No No History: Symptoms/Diagnosis Selection Items Chest pain History: Stress Tests Stress or Imaging Studies Performed No History: Other Current Smoker No Labs Hgb (g/dl) Hct (%) WBC (l/cumm) Platelets (thousands) 11.60-17.00 35.00-51.00 4.00-11.00 150.00-450.00 12.9 38.5 5.3 165 Glucose (mg/dl) BUN (mg/dl) Creatinine (mg/dl) BUN:Creatinine (1:x) 74.00-106.00 7.00-18.00 0.50-1.30 10.00-20.00 95 19 1.0 19 Na (meq/l) K (meq/l) 136.00-145.00 3.50-5.10 137 4.5 INR (PTT:PT) 0.90-1.10 1.8 Troponin I (ng/ml) CPK-MB (ng/ML) 0.02-0.05 0.50-3.60 5.76 Not Drawn Medication 09/03/2017 11:48:28 AM Financial #: [id number] Patient Name: MAGALIS SHERIFF Study #: [id number] Initial MD: Steve Lawson Date of : 1935 Study Date: 017 Medication Total Dose (Bolus/Oral) Medication Total Dosage/Unit 1% XYLOCAINE 20 mL FENTANYL 25 mcg RADIAL COCKTAIL 5 mL (Bolus) VERSED 1 mg Medications (Bolus/Oral) Medication Time Given Dosage/Unit Administered By Reason 09/03/2017 11:07:00 VERSED 1 mg Darrion Stover AM Patient arrived on 1 mg VERSED given by Darrion Stover RN in Right Antecubital via Peripheral IV. Ord ered by Steve Lawson. 09/03/2017 11:08:12 FENTANYL 25 mcg Darrion Stover AM Patient arrived on 25 mcg FENTANYL given by Darrion Stover RN in Right Antecubital via Peripheral IV. Ordered by Steve Lawson. 09/03/2017 11:12:32 1% XYLOCAINE 20 mL Steve Lawson AM 20 mL 1% XYLOCAINE given in lab by Steve Lawson in Right Radial via Subcutaneous. Ordered by Steve Lawson. 09/03/2017 11:14:55 Ntg 200mcg Verapamil 2.5mg Heparin RADIAL COCKTAIL 5 mL (Bolus) Steve Lawson AM 2000U 5 mL (Bolus) RADIAL COCKTAIL given in lab by Steve Lawson via Radial. Using [Solution Name]. Ordere d by Steve Lawson. Reason: Ntg 200mcg Medication (Drip) Medication Time Given Dosage/Unit Concentration/Unit Diluent (ml) Solution 09/03/2017 10:47:17 IV Solutions 0 mL (IV) 500 NaCl .9 AM Patient arrived on IV Solutions in Right Antecubital via Peripheral IV. Pump/Drip Flow = 20 ml/hr usi ng NaCl .9. Ordered by Steve Lawson. 09/03/2017 11:48:28 AM Financial #: [id number] 5 of 11 Patient Name: MAGALIS SHERIFF Study #: [id number] Initial MD: Steve Lawson Date of : 1935 Study Date: 09/03/2017 Initial Case Assessment Cardiovascular HR Rhythm NIBP Chest Pain 72 SR W AV BLOCK 139/84 3 Edema Present Skin color Skin None Normal Warm Dry Circulatory - Right Pulses Dorsalis Pedis Femoral Radial 2 2 2 Scale (0,1,2,3,4,d) Circulatory - Left Pulses Dorsalis Pedis Femoral Radial 2 2 Scale (0,1,2,3,4,d) Circulatory - Lower Extremities Color Lower Right Color Lower Left Normal Normal Neurological State Oriented to time-place- Alert Moves all extremities person Respiration - General Respiration Rate SpO2 (%) (B/min) 20 97 09/03/2017 11:48:28 AM Financial #: [id number] 6 of 11 Patient Name: MAGALIS SHERIFF Study #: [id number] Initial MD: Steve Lawson Date of : 1935 Study Date: 09/03/2017 Final Case Assessment Cardiovascular HR Rhythm NIBP Chest Pain 72 SR W AV BLOCK 139/84 3 Edema Present Skin color Skin None Normal Warm Dry Circulatory - Right Pulses Dorsalis Pedis Femoral Radial 2 2 2 Scale (0,1,2,3,4,d) Circulatory - Left Pulses Dorsalis Pedis Femoral Radial 2 2 Scale (0,1,2,3,4,d) Circulatory - Lower Extremities Color Lower Right Color Lower Left Normal Normal Neurological State Oriented to time-place- Alert Moves all extremities person Respiration - General Respiration Rate SpO2 (%) (B/min) 20 97 Vitals Summary Pain Time HR NIBP SpO2 Resp Temp EtCO2 Apnea Divya Huerta Comment Level 10:57:11 72 140/82 97.0 19 10 3 2 11:01:47 83 137/79 95.0 15 10 3 2 11:06:44 72 139/84 97.0 20 10 3 2 11:11:45 70 132/78 98.0 24 9 3 2 11:16:46 71 122/62 96.0 20 10 3 2 11:21:43 68 131/70 96.0 19 10 3 2 11:26:46 73 137/74 97.0 19 10 3 2 11:31:45 138/83 10 3 2 09/03/2017 11:48:28 AM Financial #: [id number] Patient Name: MAGALIS SHERIFF Study #: [id number] Initial MD: Steve Lawson Date of : 1935 Study Date: 09/03/2017 Divya Score Summary Time Activity Resp Circ LOC Color Total Score 10:57:11 2 2 2 2 2 10 11:01:47 2 2 2 2 2 10 11:06:44 2 2 2 2 2 10 11:11:45 2 2 2 1 2 9 11:16:46 2 2 2 2 2 10 11:21:43 2 2 2 2 2 10 11:26:46 2 2 2 2 2 10 11:31:45 2 2 2 2 2 10 Divya Score Definition Table Activity - 0 Activity - 1 Activity - 2 No Movement to Command Weak Hand Grasp Lift Head, Good Hand Grasp Respiration - 0 Respiration - 1 Respiration - 2 Apneic or Obstructed Shallow Breath, Airway Adjunct Deep Breath, Cough Freely Circulation - 0 Circulation - 1 Circulation - 2 B/P > 50% Admission B/P B/P > 20-50% Admission B/P B/P Stable X3 Level of Consciousness - 0 Level of Consciousness - 1 Level of Consciousness - 2 Not Responding Arousable On Calling Awake and Aware Color - 0 Color- 1 Color - 2 Cyanotic Lips, Nailbed, Skin Pale, Dusky Scenic Or Normal Chronological Log Time Study Chronological Log 10:46:48 Patient arrived via Bed. 10:46:49 Patient Name, D.O.B, / Armband Verified By R.N. 10:46:50 Consent signed by the physician and the patient and verified by the Stonecutter Assistant staff. 10:46:50 Pre-op and post- op instructions given; patient acknowledges understanding of instruction s. 10:47:07 Presedation assessment performed by Stonecutter Assistant RN. 10:47:08 Allens test performed on the right radial and ulnar artery. 10:47:11 Patient has been NPO for More than 6Hrs. 10:47:12 Skin Breakdown- 10:47:13 Patient Warmer Placed on the Table. 10:47:16 A # 20 IV was noted in the Antecubital (right). Grade = 0 Patient arrived on IV Solutions in Right Antecubital via Peripheral IV. Pump/Drip Flow = 20 m l/hr using NaCl .9. Ordered 10:47:17 by Steve Lawson. 10:47:19 History and physical on the chart or being dictated. 09/03/2017 11:48:28 AM Financial #: [id number] Patient Name: MAGALIS SHERIFF Study #: [id number] Initial MD: Steve Lawson Date of : 1935 Study Date: 09/03/2017 Assessment: Initial Case, HR=72 BPM, Rhythm=SR W AV BLOCK, RVIC=700/84 mmhg, Chest Pain=3, Prabhakar a=None, Color=Normal, Skin = Warm, Dry Right Pulses: Hung Ped=2, Femoral=2, Radial=2 Left Pulses: Hung Ped=2, Femoral=2 10:47:20 Lower Right Extremities: Color=Normal Lower Left Extremities: Color=Normal Neurological: State=Alert, Ox3, DIETZ Respiration: Resp=20 B/min, SpO2=97 % Vitals capture started with the following parameters, Patient=Adult, Interval=5 min, Initial Pr idhmrz=221 mmHg, 10:56:07 Deflation Rate=5 mmHg, Cuff placed on Left Arm 10:57:11 HR=72 bpm, DJIT=942/82 mmhg, SpO2=97.0 %, Resp=19 B/min, Pain=3, Divya=10, Huerta=2 11:01:47 HR=83 bpm, AHTC=097/79 mmhg, SpO2=95.0 %, Resp=15 B/min, Pain=3, Divya=10, Huerta=2 11:05:37 Pressure channel 1 zeroed. 11:06:44 HR=72 bpm, JPKH=849/84 mmhg, SpO2=97.0 %, Resp=20 B/min, Pain=3, Divya=10, Huerta=2 Patient arrived on 1 mg VERSED given by Darrion Stover RN in Right Antecubital via Peripheral I V. Ordered by Renny, 11:07:00 Steve. Patient arrived on 25 mcg FENTANYL given by Darrion Stover RN in Right Antecubital via Peripher al IV. Ordered by 11:08:12 Steve Lawson. 11:08:58 Right Radial and groin(s) prepped with 2% chlorhexidine, and draped after a 3 min. waiting time. 11:09:05 MD arrived. 11:11:32 Reference ECG taken Time Out. Correct patient, correct procedure, correct physician, power injector not loaded with contrast with surgical 11:11:41 team present. Time Out Concurred by MD and individual staff in procedure. 11:11:45 HR=70 bpm, ALJV=502/78 mmhg, SpO2=98.0 %, Resp=24 B/min, Pain=3, Divya=9, Huerta=2 11:12:01 Case Start 11:12:32 20 mL 1% XYLOCAINE given in lab by Steve Lawson in Right Radial via Subcutaneous. Ordered by Steve Lawson. 11:13:29 Access site was RIGHT Radial Artery. A SHEATH, FR6 RADIAL PRELUDE EASE 11CM FR 6 was advanced into the Radial (right) using the Perc utaneous 11:13:50 technique. 5 mL (Bolus) RADIAL COCKTAIL given in lab by Steve Lawson via Radial. Using [Solution Name]. Ordered by Renny, 11:14:55 Steve. Reason: Ntg 200mcg A JR 5.0 INFINITI CATHETER FR 6 was advanced over a wire. OMNIPAQUE, 350 MG, 150ML 150ML was us ed for 11:15:19 injections. 11:16:46 HR=71 bpm, KAWV=277/62 mmhg, SpO2=96.0 %, Resp=20 B/min, Pain=3, Divya=10, Huerta=2 Recorded Pressure: LV, HR=71, Condition=Condition 1 11:16:48 (Left Ventricle) LV 129/10/20 Recorded Pressure: LV, Ao, HR=71, Condition=Condition 1 11:17:23 (Left Ventricle) LV 136/11/20, (Aorta) Ao 138/76/103 11:17:53 The RCA was injected and visualized at various angles. OMNIPAQUE, 350 MG, 150ML 150ML used . After removing the current catheter a JL 3.5 INFINITI CATHETER FR 6 was advanced over a WIRE, E XCHANGE 260CM 11:19:20 3MMJ 260CM. 11:19:27 The LCA was injected and visualized at various angles. OMNIPAQUE, 350 MG, 150ML 150ML used . Recorded Pressure: Ao, HR=70, Condition=Condition 1 11:20:34 (Aorta) Ao 140/77/104 11:21:43 HR=68 bpm, HJVZ=448/70 mmhg, SpO2=96.0 %, Resp=19 B/min, Pain=3, Divya=10, Huerta=2 After removing the current catheter a PIGTAIL ANG. INFINITI CATHETER FR 5 was advanced over a W TREVON, EXCHANGE 11:22:11 260CM 3MMJ 260CM. 11:24:15 The Aortic was injected at 6.5 cc/sec for a total of 40. OMNIPAQUE, 350 MG, 150ML 150ML use d. 09/03/2017 11:48:28 AM Financial #: [id number] Patient Name: MAGALIS SHERIFF Study #: [id number] Initial MD: Steve Lawson Date of : 1935 Study Date: 09/03/2017 11:25:55 Catheter was removed 11:25:58 Case End 11:26:46 HR=73 bpm, AYBV=430/74 mmhg, SpO2=97.0 %, Resp=19 B/min, Pain=3, Divya=10, Huerta=2 Assessment: Final Case, HR=72 BPM, Rhythm=SR W AV BLOCK, VAOI=175/84 mmhg, Chest Pain=3, Edema =None, Color=Normal, Skin = Warm, Dry Right Pulses: Hung Ped=2, Femoral=2, Radial=2 Left Pulses: Hung Ped=2, Femoral=2 11:30:27 Lower Right Extremities: Color=Normal Lower Left Extremities: Color=Normal Neurological: State=Alert, Ox3, DIETZ Respiration: Resp=20 B/min, SpO2=97 % 11:31:45 ROCM=146/83 mmhg, Pain=3, Divya=10, Huerta=2 Radial Compression Device Used. 11 mLs of air placed in BAND, RADIAL COMPRESSION TR SHORT 24 2 4CM. Affected 11:33:21 hand 98 % O2 saturation. 11:33:57 No case complications noted. 11:33:58 Cine recording checked. 11:35:13 Bedside Report will be given. 11:35:14 Contrast Scanned 11:35:16 A Left Heart Cath was performed. 11:35:17 Patient moved to stretcher Recorded Pressures: Condition 1 Time Chamber Pressure Manual Override (*) 11:16:48 LV 129/10/20 s/bd/ed 11:17:23 LV 136/11/20 s/bd/ed 11:17:23 Ao 138/76/103 s/d/m 11:20:34 Ao 140/77/104 s/d/m End Study - Contrast Media Used In Study Contrast Total Opened (mL) Total Used (mL) Total Wasted (mL) Omnipaque 70 70 0 End Study - Maximum Contrast Load Max Contrast Load (mL) 480.0 End Study - Radiation Exposure Fluoro Time (minutes) 1.8 09/03/2017 11:48:28 AM Financial #: [id number] Patient Name: MAGALIS SHERIFF Study #: [id number] Initial MD: Steve Lawson Date of : 1935 Study Date: 09/03/2017 End Study - Patient Disposition Complications Transferred To No Outpatient Bed 09/03/2017 11:48:28 AM Financial #: [id number]
--- NOTE | 2017-09-03 12:16 | MA ---
cc: DOUGIE DUFFY DATE: 09/03/2017 INDICATION Pfn-UG-ttaajnmgp SD. PROCEDURE PERFORMED 1. Fluoroscopy with interpretation. 2. Coronary angiography. 3. Left heart catheterization. 4. Ascending aortography. METHOD The risks, benefits and alternatives were discussed with the patient. The patient understood and consented to the procedure. The patient was brought into the catheterization lab and placed on the catheterization table. The right wrist was prepped and draped in sterile fashion. The right wrist was anesthetized with 2% lidocaine. The right radial artery was cannulated and a 6 Turkish, 11 cm sheath was placed without difficulty. LEFT HEART CATHETERIZATION Intraventricular hemodynamics measured 136/11 mmHg. Left ventricular end-diastolic pressure 15 mmHg. No aortic stenosis by transaortic valvular pullback gradient. CORONARY ANGIOGRAPHY 1. 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 2. The left anterior descending coronary originates from a separate ostium and is angiographically normal. The diagonal branch is small caliber size and angiographically normal. 3. The left circumflex has minor luminal irregularities. Proximally it has stenosis of 20-30%. There is a large first obtuse marginal branch which is normal. 4. The right coronary is a dominant vessel giving rise to a posterior descending branch. The right coronary is angiographically normal. ASCENDING AORTOGRAPHY Ascending aortography was performed in a left anterior oblique view with a 40 cc contrast injection and good opacification. The ascending aorta was not dilated. There was no evidence of dissection. CONCLUSIONS 1. Mild nonobstructive coronary disease. 2. Normal left ventricle. 3. Normal ascending aorta. PLAN It is not clear as to why she developed elevated troponin. The aorta is unremarkable and the coronaries do not have any evidence for significant obstructive disease. Vasospasm could be a consideration, but given her age and presentation a little less likely. Will check a 2-D echocardiogram to rule out Takotsubo pathology. Will continue with the medical therapy. If echocardiogram is unremarkable we can likely get her set up for discharge and outpatient follow-up. MD FAUSTINO Clarke/NILS /11:41 AM /12:03 PM
[2017-09-03] MEDS ORDERED: LORazepam 2 MG/ML VIAL IV PUSH ONE (12:30)
[2017-09-03] MEDS ORDERED: BACITRACIN OINT 0.9 GM PKT TOP ONE (12:30)
[2017-09-03] MEDS ORDERED: ONDANSETRON HCL 4 MG/2 ML VIAL IV PUSH PRN (12:30)
--- NOTE | 2017-09-03 12:40 | MB ---
cc: DOUGIE DUFFY DATE OF CONSULTATION 09/03/2017 INDICATION Sbo-BB-cmudcvrrd DC. HISTORY OF PRESENT ILLNESS This is a very nice 82-year-old female. She presented to the emergency department with a sudden onset of dizziness when she came back from getting the mail yesterday. She had a syncopal event and hit her head. Also, she had light headedness, fell and hit her head, but no loss of consciousness. She has a history of atrial fibrillation with prior ablation with Dr. Gregorio. She is on anticoagulation, but it is slightly subtherapeutic. She had some intermittent chest pains. She was brought into the [place] emergency department. Initial troponin 0.4, but overnight it sivan up to six. She was transferred to [facility] for consideration of cardiac catheterization. PAST MEDICAL HISTORY 1. Atrial fibrillation status post ablation. 2. History of cancer 3. GERD 4. Degenerative joint disease 5. Hypothyroidism 6. Rheumatoid arthritis HOME MEDICATIONS 1. Vitamin C 2. Co-Q10 3. Doxepin 4. Coumadin 5. Keflex 6. Budesonide 7. Levothyroxine 8. Vitamin D ALLERGIES SULFA, NITROFURANTOIN, OFLOXACIN, DOXYCYCLINE, MEPERIDINE SOCIAL HISTORY Denies any alcohol, tobacco or drug use. REVIEW OF SYSTEMS A 12-point review of systems was performed and is negative unless otherwise as noted in the history of present illness. PHYSICAL EXAMINATION VITAL SIGNS: Temperature 97, pulse of 64, blood pressure 126/72 mmHg. GENERAL: Alert and oriented x3 in no acute distress. HEENT: Exam shows pupils reactive to light and accommodation. Extraocular movements are intact. No elevation in jugular venous distension. No thyromegaly, lymphadenopathy or carotid bruits. LUNGS: Clear to auscultation bilaterally. CARDIOVASCULAR: Regular rate and rhythm without murmurs, rubs or gallops. ABDOMEN: Nontender, nondistended. Good bowel sounds. No hepatosplenomegaly. EXTREMITIES: Shows no clubbing, cyanosis or edema. Good peripheral pulses. NEUROLOGIC: Cranial nerves: Intact. Motor and sensory grossly intact. LABORATORY DATA WBC 5.3, hemoglobin 12.9, platelet count 165, INR is 1.8. Sodium 137, potassium 4.5, BUN is 19, creatinine is 1.0, troponin 0.40 and up to 5.76. TSH is 3.85. Electrocardiogram normal sinus rhythm, first-degree AV block. No significant ischemic changes. ASSESSMENT 1. Gos-GX-loxkoipjg DC 2. Dizziness with presyncope 3. Atrial fibrillation PLAN Given the elevated troponin, we will plan for cardiac catheterization, rule out significant obstructive disease. She will also need further evaluation with probable Holter monitor for arrhythmia given her acute onset of dizziness and presyncope. The risks, benefits and alternatives discussed with the patient including bleeding given her recent Coumadin administration and slightly subtherapeutic INR. We will attempt from a right radial approach. We will obtain 2-D echocardiogram. MD FAUSTINO Clarke/RIGOBERTO /11:43 AM /12:27 PM
[2017-09-03] MEDS: ACETAMINOPHEN 325 MG TAB PO PRN (13:42)
--- NOTE | 2017-09-03 14:53 | ECHRPT ---
Indication: CHEST PAIN CONCLUSIONS Mildly dilated left ventricle. The left ventricular systolic function is severely reduced with an estimated ejection fraction in th e range of 25-30%. There is diffuse global hypokinesis with distinct regional wall motion abnormalities (Best preserved at anterior and posterior basal segments consistent with Takotsubo cardiomyopathy) Mild mitral valve regurgitation. Aortic valve sclerosis is present. Mild aortic valve regurgitation. No aortic valve stenosis. BP: 126 / 72 HR: Rhythm: Sinus MEASUREMENTS (Male / Female) Normal Values Technical Quality:Fair 2D ECHO LV Diastolic Diameter PLAX 4.7 cm 4.2 - 5.9 / 3.9 - 5.3 cm LV Systolic Diameter PLAX 4.0 cm IVS Diastolic Thickness 0.8 cm 0.6 - 1.0 / 0.6 - 0.9 cm LVPW Diastolic Thickness 0.8 cm 0.6 - 1.0 / 0.6 - 0.9 cm LV Relative Wall Thickness 0.4 LVOT Diameter 2.1 cm Aortic Root Diameter 3.2 cm LA Systolic Diameter LX 2.4 cm 3.0 - 4.0 / 2.7 - 3.8 cm M-MODE AV Cusp Separation MM 2.1 cm DOPPLER AV Peak Velocity 121.0 cm/s AV Peak Gradient 5.9 mmHg AV Mean Gradient 3.5 mmHg AV Velocity Time Integral 24.0 cm AI Peak Velocity 445.0 cm/s AI Peak Gradient 79.2 mmHg AI Pressure Half Time 401.0 ms LVOT Peak Velocity 87.2 cm/s LVOT Peak Gradient 3.0 mmHg LVOT Velocity Time Integral 15.5 cm AV Area Cont Eq vti 2.2 cm AV Area Cont Eq pk 2.5 cm Mitral E Point Velocity 103.0 cm/s Mitral A Point Velocity 68.6 cm/s Mitral E to A Ratio 1.5 LV E' Lateral Velocity 7.0 cm/s Mitral E to LV E' Lateral Ratio 14.7 LV E' Septal Velocity 5.9 cm/s Mitral E to LV E' Septal Ratio 17.6 TR Peak Velocity 309.0 cm/s TR Peak Gradient 38.2 mmHg Right Atrial Pressure 10.0 mmHg Pulmonary Artery Systolic Pressu 48.2 mmHg Right Ventricular Systolic Press 48.2 mmHg PV Peak Velocity 51.1 cm/s PV Peak Gradient 1.0 mmHg FINDINGS LEFT VENTRICLE Mildly dilated left ventricle. The left ventricular systolic function is severely reduced with an estimated ejection fraction in th e range of 25-30%. There is diffuse global hypokinesis with distinct regional wall motion abnormalities (Best preserved at anterior and posterior basal segments consistent with Takotsubo cardiomyopathy) RIGHT VENTRICLE Normal right ventricular size and systolic function. LEFT ATRIUM The left atrial size is normal. RIGHT ATRIUM The right atrial size is normal. ATRIAL SEPTUM Normal atrial septal thickness without atrial level shunting by limited color doppler interrogation. AORTA The aortic root and proximal ascending aorta are normal in size on limited imaging. MITRAL VALVE Structurally normal mitral valve. Mild mitral valve regurgitation. AORTIC VALVE Trileaflet aortic valve. Aortic valve sclerosis is present. Mild aortic valve regurgitation. No aortic valve stenosis. TRICUSPID VALVE Structurally normal tricuspid valve. No tricuspid valve stenosis or regurgitation. PULMONARY VALVE No pulmonary valve regurgitation or stenosis. VESSELS The inferior vena cava is normal in size. PERICARDIUM No pericardial effusion. Steve Lawson MD, FACC (Electronically Signed) Final Date:03 September 2017 14:51
[2017-09-03] MEDS ORDERED: IOHEXOL 350 MG/ML 100 ML BTL (for Cath Lab) OTHER ONE (15:07)
[2017-09-03] MEDS ORDERED: GADODIAMIDE PF 287 MG/ML 5 ML VIAL (for RAD MRI) IV PUSH ONE (17:08)
--- NOTE | 2017-09-03 17:17 | RADRPT ---
EXAM DATE/TIME: 09/03/2017 16:34 [place] COMPARISON: CT BRAIN W/O CONTRAST, September 02, 2017, 16:28. INDICATIONS : Syncope. CONTRAST: 19 cc Omniscan (gadodiamide) IV MEDICAL HISTORY : Rheumatoid arthritis. Hypothyroidism. CKD. SURGICAL HISTORY : Hysterectomy. Cholecystectomy. Cardiac ablation. Cataracts. Basal cell carcinoma removed. ENCOUNTER: Subsequent ACUITY: 1 day PAIN SCORE: 0/10 LOCATION: cranial TECHNIQUE: Multiplanar, multisequence MRI of the brain was performed both prior to and following the administrat ion of paramagnetic contrast. FINDINGS: CEREBRUM: Ventricles are somewhat prominent but stable. This appears to be out of proportion to the degree of c ortical atrophy. No evidence of midline shift, mass lesion, hemorrhage or acute infarction. No extr aaxial fluid collections are seen. The pituitary gland and suprasellar cistern are normal in configu ration. WHITE MATTER: Minimal periventricular small vessel ischemic demyelination. POSTERIOR FOSSA: The cerebellum and brainstem are intact. The 4th ventricle is midline. The cerebellopontine angle is unremarkable. The cerebellar tonsils are normal in position. DIFFUSION IMAGING: No focal areas of restricted diffusion are seen. No evidence of acute infarction. EXTRACRANIAL: The visualized portions of the orbits are unremarkable. Opacification of the right sphenoid. POST-CONTRAST: No abnormal areas of parenchymal or dural enhancement. No evidence of blood-brain barrier breakdown. CONCLUSION: 1. Ventricular prominence is stable but I believe out of proportion to the degree of cortical atrophy . Findings could represent normal pressure hydrocephalus in the appropriate clinical setting. 2. Very minimal periventricular small vessel ischemic demyelination. 3. Chronic sinusitis, right sphenoid Jordan Louis MD on September 03, 2017 at 17:08 Board Certified Radiologist. This report was verified electronically.
--- NOTE | 2017-09-03 18:04 | EKG ---
Date Performed: 09/03/2017 Time Performed: 05:56:15 PTAGE: 82 years EKG: Sinus rhythm MARKED LEFT AXIS DEVIATION ABNORMAL ECG PREVIOUS TRACING : 09/02/2017 16.20 DOCTOR: Jm Gregorio Interpretating Date/Time 09/03/2017 18:02:04
--- NOTE | 2017-09-03 18:19 | EKG ---
Date Performed: 09/02/2017 Time Performed: 16:20:31 PTAGE: 82 years EKG: Sinus rhythm WITH FIRST DEGREE AV BLOCK ABNORMAL ECG PREVIOUS TRACING : 11/28/2016 11.02 DOCTOR: Jm Gregorio Interpretating Date/Time 09/03/2017 18:14:46
[2017-09-03] MEDS: DOXEPIN HCL 50 MG CAP PO SCH (22:17)
[2017-09-03] MEDS: DOCUSATE SODIUM 50 MG/SENNA 8.6 MG TAB PO SCH (22:19)
[2017-09-03] MEDS: CHOLECALCIFEROL (VIT D3) 1000 UNIT TAB PO SCH (22:19)
[2017-09-03] MEDS: cefTRIAXone INJ 1,000 MG in SODIUM CHLORIDE 0.9% INJ 100 ML IV SCH (22:20)
[2017-09-03] MEDS: SODIUM CHLORIDE 0.9% FLUSH 10 ML FLUSH IV FLUSH SCH (22:21)
[2017-09-04] VITALS (26 sets, daily range): BP systolic 98–121; BP diastolic 50–71; PULSE 64–74; RESP 16–18; TEMP 97.6–98.2; O2SAT 91–98
[2017-09-04] MEDS: PROPRANOLOL HCL 40 MG TAB PO SCH ×3 (05:06→21:19)
[2017-09-04] MEDS: LEVOTHYROXINE SODIUM 50 MCG TAB PO SCH (05:06)
[2017-09-04 06:00] LABS: BICARBONATE 26.9 MEQ/L (21.0-32.0); POTASSIUM 3.7 MEQ/L (3.5-5.1)
[2017-09-04 06:18] LABS: AUTOMATED NEUTROPHIL # 7.9 TH/MM3 (1.8-7.7); BASOPHIL % 0.3 % (0.0-2.0); EOSINOPHIL % 0.2 % (0.0-4.0); HEMATOCRIT 36.6 % (35.0-46.0); HEMO FLAGS DIFF FINAL; LYMPH % 9.4 % (9.0-44.0); LYMPHOCYTE # 0.9 TH/MM3 (1.0-4.8); MEAN CELL VOLUME 87.7 FL (80.0-100.0); MEAN CORPUSCULAR HEMOGLOBIN 29.6 PG (27.0-34.0); MEAN CORPUSCULAR HGB CONC 33.8 % (32.0-36.0); MONO % 10.4 % (0.0-8.0); NEUT % 79.7 % (16.0-70.0); PLATELET COUNT 143 TH/MM3 (150-450); RED BLOOD COUNT 4.17 MIL/MM3 (4.00-5.30); RED CELL DISTRIBUTION WIDTH 14.7 % (11.6-17.2); WHITE BLOOD COUNT 9.9 TH/MM3 (4.0-11.0)
[2017-09-04] MEDS: DOCUSATE SODIUM 50 MG/SENNA 8.6 MG TAB PO SCH ×2 (09:23→21:18)
[2017-09-04] MEDS: CHOLECALCIFEROL (VIT D3) 1000 UNIT TAB PO SCH ×2 (09:24→21:18)
[2017-09-04] MEDS: SODIUM CHLORIDE 0.9% FLUSH 10 ML FLUSH IV FLUSH SCH ×2 (09:24→21:00)
[2017-09-04] MEDS: AMIODARONE 200 MG TAB PO SCH (09:24)
[2017-09-04] MEDS: MULTIVITAMINS/MINERALS THERAPEUTIC TAB PO SCH (09:24)
[2017-09-04] MEDS: ACETAMINOPHEN 325 MG TAB PO PRN ×2 (11:22→18:34)
--- NOTE | 2017-09-04 11:23 | HHI.PR ---
Subjective Remarks Patient seen with multiple family members present Patient's main complaint is generalized fatigued Families questions answered Objective Vitals Vital Signs Date Time Temp Pulse Resp B/P (MAP) Pulse Ox O2 Delivery O2 Flow Rate FiO2 09/04/17 07:00 98.2 73 16 120/70 (87) 95 09/04/17 06:00 72 09/04/17 05:00 72 09/04/17 04:00 72 09/04/17 03:00 72 09/04/17 02:00 72 09/04/17 01:00 74 09/04/17 00:00 74 09/04/17 00:00 98.0 74 18 121/71 (88) 98 09/03/17 23:00 78 09/03/17 22:00 92 09/03/17 21:00 82 09/03/17 20:00 Nasal Cannula 2.00 09/03/17 20:00 97.8 84 18 105/64 (78) 92 09/03/17 20:00 80 09/03/17 19:00 82 09/03/17 18:30 81 09/03/17 18:30 96.9 61 18 108/56 (73) 98 09/03/17 13:02 96 Nasal Cannula 1.00 Result Diagram: 09/04/17 0453 09/04/17 0453 Other Results Laboratory Tests Test 09/02/17 16:20 09/02/17 16:55 09/02/17 16:58 09/03/17 05:50 Urine Color YELLOW Urine Turbidity SLIGHTY CLOUDY Urine pH 7.0 Urine Specific [place] 1.017 Urine Protein NEG mg/dL Urine Glucose (UA) NEG mg/dL Urine Ketones NEG mg/dL Urine Occult Blood NEG Urine Nitrite NEG Urine Bilirubin NEG Urine Leukocyte Esterase LARGE Urine WBC 25-49 /hpf Urine WBC Clumps RARE Urine Amorphous Sediment MOD Urine Bacteria FEW /hpf Microscopic Urinalysis Comment CULTURE INDICATED White Blood Count 5.3 TH/MM3 Red Blood Count 4.43 MIL/MM3 Hemoglobin 12.9 GM/DL Hematocrit 38.5 % Mean Corpuscular Volume 86.9 FL Mean Corpuscular Hemoglobin 29.1 PG Mean Corpuscular Hemoglobin Concent 33.5 % Red Cell Distribution Width 13.9 % Platelet Count 165 TH/MM3 Mean Platelet Volume 8.0 FL Neutrophils (%) (Auto) 63.7 % Lymphocytes (%) (Auto) 20.7 % Monocytes (%) (Auto) 12.1 % Eosinophils (%) (Auto) 2.6 % Basophils (%) (Auto) 0.9 % Neutrophils # (Auto) 3.5 TH/MM3 Lymphocytes # (Auto) 1.1 TH/MM3 Monocytes # (Auto) 0.6 TH/MM3 Eosinophils # (Auto) 0.1 TH/MM3 Basophils # (Auto) 0.0 TH/MM3 CBC Comment DIFF FINAL Differential Comment Prothrombin Time 21.0 SEC Prothromb Time International Ratio 1.8 RATIO Blood Urea Nitrogen 19 MG/DL Creatinine 1.00 MG/DL Random Glucose 95 MG/DL Calcium Level 8.6 MG/DL Sodium Level 137 MEQ/L Potassium Level 4.5 MEQ/L Chloride Level 103 MEQ/L Carbon Dioxide Level 27.4 MEQ/L Anion Gap 7 MEQ/L Estimat Glomerular Filtration Rate 53 ML/MIN Total Creatine Kinase 147 U/L Troponin I 0.40 NG/ML 5.76 NG/ML Thyroid Stimulating Hormone 3rd Gen 3.850 uIU/ML B-Type Natriuretic Peptide 62 PG/ML Free Thyroxine 1.43 NG/DL Test 09/04/17 04:53 White Blood Count 9.9 TH/MM3 Red Blood Count 4.17 MIL/MM3 Hemoglobin 12.4 GM/DL Hematocrit 36.6 % Mean Corpuscular Volume 87.7 FL Mean Corpuscular Hemoglobin 29.6 PG Mean Corpuscular Hemoglobin Concent 33.8 % Red Cell Distribution Width 14.7 % Platelet Count 143 TH/MM3 Mean Platelet Volume 8.5 FL Neutrophils (%) (Auto) 79.7 % Lymphocytes (%) (Auto) 9.4 % Monocytes (%) (Auto) 10.4 % Eosinophils (%) (Auto) 0.2 % Basophils (%) (Auto) 0.3 % Neutrophils # (Auto) 7.9 TH/MM3 Lymphocytes # (Auto) 0.9 TH/MM3 Monocytes # (Auto) 1.0 TH/MM3 Eosinophils # (Auto) 0.0 TH/MM3 Basophils # (Auto) 0.0 TH/MM3 CBC Comment DIFF FINAL Differential Comment Blood Urea Nitrogen 15 MG/DL Creatinine 0.64 MG/DL Random Glucose 89 MG/DL Calcium Level 8.3 MG/DL Sodium Level 136 MEQ/L Potassium Level 3.7 MEQ/L Chloride Level 102 MEQ/L Carbon Dioxide Level 26.9 MEQ/L Anion Gap 7 MEQ/L Estimat Glomerular Filtration Rate 89 ML/MIN Imaging Last [address] 09/02/17 1612 Signed Impressions: Service Date/Time: August 16:28 - CONCLUSION: 1. No acute intracranial abnormality is identified. 2. Chronic right sphenoid sinus disease. Diego Johnston MD Chest X-Ray 09/02/17 1612 Signed Impressions: Service Date/Time: August 16:40 - CONCLUSION: 1. Generalized interstitial prominence presenting either interstitial pneumonitis or possibly early pulmonary edema. 2. No other significant abnormality. Dequan Nuñez MD Objective Remarks GENERAL: 82 year old female patient does appear fatigued but in no acute distress SKIN: Warm and dry. CARDIOVASCULAR: Regular rate and rhythm. RESPIRATORY: No accessory muscle use. Clear to auscultation. Breath sounds equal bilaterally. MUSCULOSKELETAL: Extremities without clubbing, cyanosis, or edema. No obvious deformities. NEUROLOGICAL: Awake and alert. No obvious cranial nerve deficits. Motor grossly within normal limits. 4 out of 5 muscle strength in the arms and legs. Normal speech. PSYCHIATRIC: Appropriate mood and affect; insight and judgment normal. Procedures cardiac catheterization 09/03/[address] Lawson A/P Problem List: (1) Pre-syncope ICD Codes: R55 - Syncope and collapse Status: Acute Plan: Pre-syncope Dizziness dizziness with some gait difficulty recent outpatient carotid ultrasound negative CT head reviewed and reveals no acute intracranial abnormalities Orthostatic vital signs (09/02) negative for orthostatic hypotension continue telemetry monitoring add MERCEDES hose MRI reveals ventricular prominence is stable but out of proportion to the degree of cortical atrophy. Findings could represent normal pressure hydrocephalus in the appropriate clinical setting. Consult Neurosurgery PT requested (2) Dizziness ICD Codes: R42 - Dizziness and giddiness Status: Acute Plan: see above (3) Elevated troponin I level ICD Codes: R74.8 - Abnormal levels of other serum enzymes Status: Acute Plan: Elevated troponin S/P cardiac catheterization 09/03 Mild nonobstructive coronary disease. Normal left ventricle. Normal ascending aorta Echocardiogram showed EF 25-30%. diffuse global hypokinesis with distinct regional wall motion abnormalities (best preserved at anterior and posterior basal segments consistent with Takotsubo cardiomyopathy) supportive care (4) Gait difficulty ICD Codes: R26.9 - Unspecified abnormalities of gait and mobility Plan: MRI reveals ventricular prominence is stable but out of proportion to the degree of cortical atrophy. Findings could represent normal pressure hydrocephalus in the appropriate clinical setting. Patient and family reports worsening gait over the past 4 months patient does endorse urinary incontinence which has been chronic for years and does not seem to have changed recently Consult Neurosurgery PT requested (5) Hypothyroidism ICD Codes: E03.9 - Hypothyroidism Status: Chronic Plan: Hypothyroidism TSH minimally elevated 3.850 free T4 1.43 continue home Synthroid (6) Atrial fibrillation ICD Codes: I48.91 - Unspecified atrial fibrillation Plan: Atrial Fibrillation- currently in SR continue telemetry Coumadin on hold at this time possible upcoming procedure check INR in AM (7) UTI (urinary tract infection) ICD Codes: N39.0 - UTI (urinary tract infection) Status: Chronic Plan: UTI Patient takes Keflex daily for prophylactic was started on Rocephin IV in patient due to UA results Urine culture reveals pseudomonas aeruginosa sensitive to Cipro Rocephin DC'd, started Cipro 250 mg PO BID QTC 462 will recheck EKG in AM DVT prophylaxis with SCDs, Coumadin on hold for possible procedure (8) Difficulty swallowing ICD Codes: R13.10 - Dysphagia, unspecified Plan: Difficult swallowing modified barium swallow evaluation ordered (9) Anxiety ICD Codes: F41.9 - Anxiety disorder, unspecified Plan: Patient's family reports increased anxiety since 10/2016 after cardiac ablation. patient does endorse anxiety when asked directly will start Lexapro daily also add as needed Xanax Assessment and Plan Patient examined. Assessment and plan formulated with Kamala Syed PA-C. I agree with the above. Problem Qualifiers (1) Hypothyroidism: Qualified Codes: E03.9 - Hypothyroidism, unspecified (2) UTI (urinary tract infection): Qualified Codes: N39.0 - Urinary tract infection, site not specified Kamala Syed Sep 04, 2017 11:23 [place] Li DO Sep 06, 2017 22:17
[2017-09-04] MEDS ORDERED: ALPRAZolam 0.25 MG TAB PO PRN (13:00)
[2017-09-04] MEDS: LEFLUNOMIDE 20 MG TAB PO SCH (13:46)
[2017-09-04] MEDS: ESCITALOPRAM OXALATE 10 MG TAB PO SCH (13:47)
--- NOTE | 2017-09-04 13:57 | PD.CONS ---
[facility] Service Neurosurgery Consult Requested By Dr. Li Reason for Consult Rule out normal pressure hydrocephalus Primary Care Physician Dany Gallardo MD History of Present Illness I was asked to see this 82-year-old woman who was admitted following a non- syncopal fall at home. Fall seems to be due to some gait abnormality and dizziness which the patient has had for several months now. Because of her history of atrial fibrillation and anticoagulation she was brought to the emergency room for evaluation a CT scan of the brain was performed. Showed no evidence of intracerebral hemorrhage however was read as showing ventricular megaly out of proportion to cortical atrophy. Subsequently an MRI was performed and again read similarly bringing up the possible diagnosis of normal pressure hydrocephalus. I interviewed the patient and her son and according to both that she has no history of dementia, the symptoms of which are well known in the family as her suffered from dementia significantly. She does have mild urinary incontinence but this appears to be secondary to anatomic problems and the patient has had a pelvic sling performed for incontinence and frequent UTIs. Her gait abnormality seems to be more a problem with balance and not so much shuffling or slowness of her gait. Past Family Social History Allergies: Coded Allergies: Sulfa (Sulfonamide Antibiotics) (Unverified Allergy, Severe, ORAL SORES, 09/02/17) nitrofurantoin (Verified Allergy, Severe, Nausea/Vomiting, 09/02/17) ofloxacin (Unverified Adverse Reaction, Severe, POSSIBLE A FIB, 09/02/17) doxycycline (Unverified Adverse Reaction, Unknown, 09/02/17) INCREASED PAIN OF RHEUMATOID ARTHRITIS meperidine (Unverified Adverse Reaction, Unknown, SEVERE NAUSEA & VOMITING , 09/02/17) Past Medical History Past Medical History a fib s/p ablation cancer face,GERD djd back,neck,hypothyroid,RA Past Surgical History laser glaucoma,hysterectomy,dental surgery pelvic sling chronic uti on chronic keflex daily Reported Medications Propranolol (Propranolol HCl) 40 Mg Tab 40 Mg PO Q8HR Amiodarone (Amiodarone HCl) 200 Mg Tab 200 Mg PO DAILY Reported Vitamin C Tr (Ascorbic Acid) 500 Mg Caper 3,000 Mg PO DAILY Coq-10 (Coenzyme Q10 (Ubidecarenone)) 50 Mg Cap 100 Mg PO DAILY Thera M Plus (Multivitamins/Minerals Therapeutic) 1 Tab 1 Tab PO DAILY Doxepin (Doxepin HCl) 50 Mg Cap 50 Mg PO HS Warfarin 2 Mg Tab 2 Mg PO WEDNESDAY Warfarin 3 Mg Tab 3 Mg PO SUMOWETHFRSA Take 1 tablet (3mg) on Wednesday,Wednesday,Wednesday,,Wednesday and Wednesday Keflex (Cephalexin) 500 Mg Cap 500 Mg PO HS Leflunomide Unknown Strength Tab 20 Mg PO DAILY Levothyroxine (Levothyroxine Sodium) 50 Mcg Tab 50 Mcg PO DAILY on wed and wednesday takes two 50mcg Vitamin D3 (Cholecalciferol) 1,000 Unit Tab 1,000 Units PO BID Physical Exam Vital Signs Vital Signs Date Time Temp Pulse Resp B/P (MAP) Pulse Ox O2 Delivery O2 Flow Rate FiO2 09/04/17 11:00 71 16 120/67 (84) 96 09/04/17 09:30 102/54 (70) 09/04/17 09:30 98/50 (66) 09/04/17 08:00 96 Room Air 09/04/17 07:00 72 09/04/17 07:00 98.2 73 16 120/70 (87) 95 09/04/17 06:00 72 09/04/17 05:00 72 09/04/17 04:00 72 09/04/17 03:00 72 09/04/17 02:00 72 09/04/17 01:00 74 09/04/17 00:00 74 09/04/17 00:00 98.0 74 18 121/71 (88) 98 09/03/17 23:00 78 09/03/17 22:00 92 09/03/17 21:00 82 09/03/17 20:00 Nasal Cannula 2.00 09/03/17 20:00 97.8 84 18 105/64 (78) 92 09/03/17 20:00 80 09/03/17 19:00 82 09/03/17 18:30 81 09/03/17 18:30 96.9 61 18 108/56 (73) 98 Physical Exam Gen.: Well-developed well-nourished elderly female who is awake and alert no acute distress. HEENT: Head is atraumatic normocephalic. Pupils are equal and reactive to light. X Dr. movements are intact. Neck: Supple full range of motion and no posterior tenderness. Neurological: Patient is alert and oriented 3 with normal mental status and normal recent and remote memory. Speech is intact to contact branch and cranial nerves II-XII intact motor function is from 5-4 extremities. Sensory intact to primary modalities. Reflexes hypoactive and symmetric. Gait normal based and non-shuffling, slightly decreased stride. Patient does have some weakness in the right knee which tends to buckle. Laboratory Laboratory Tests Test 09/04/17 04:53 White Blood Count 9.9 Red Blood Count 4.17 Hemoglobin 12.4 Hematocrit 36.6 Mean Corpuscular Volume 87.7 Mean Corpuscular Hemoglobin 29.6 Mean Corpuscular Hemoglobin Concent 33.8 Red Cell Distribution Width 14.7 Platelet Count 143 Mean Platelet Volume 8.5 Neutrophils (%) (Auto) 79.7 Lymphocytes (%) (Auto) 9.4 Monocytes (%) (Auto) 10.4 Eosinophils (%) (Auto) 0.2 Basophils (%) (Auto) 0.3 Neutrophils # (Auto) 7.9 Lymphocytes # (Auto) 0.9 Monocytes # (Auto) 1.0 Eosinophils # (Auto) 0.0 Basophils # (Auto) 0.0 CBC Comment DIFF FINAL Differential Comment Blood Urea Nitrogen 15 Creatinine 0.64 Random Glucose 89 Calcium Level 8.3 Sodium Level 136 Potassium Level 3.7 Chloride Level 102 Carbon Dioxide Level 26.9 Anion Gap 7 Estimat Glomerular Filtration Rate 89 Date/Time Source Procedure Growth Status 09/02/17 19:18 Blood Peripheral Aerobic Blood Culture - Preliminary NO GROWTH IN 2 DAYS Resulted 09/02/17 19:18 Blood Peripheral Anaerobic Blood Culture - Preliminary NO GROWTH IN 2 DAYS Resulted 09/02/17 16:20 Urine Clean Catch Urine Culture - Final Pseudomonas Aeruginosa Complete Result Diagram: 09/04/17 0453 09/04/17 0453 Imaging Last 48 hours Impressions Brain MRI 09/03/17 0000 Signed Impressions: Service Date/Time: Sunday, September 03, 2017 16:34 - CONCLUSION: 1. Ventricular prominence is stable but I believe out of proportion to the degree of cortical atrophy. Findings could represent normal pressure hydrocephalus in the appropriate clinical setting. 2. Very minimal periventricular small vessel ischemic demyelination. 3. Chronic sinusitis, right sphenoid Jordan Roma Louis MD Head CT 09/02/17 1612 Signed Impressions: Service Date/Time: August 16:28 - CONCLUSION: 1. No acute intracranial abnormality is identified. 2. Chronic right sphenoid sinus disease. Diego Johnston MD Chest X-Ray 09/02/17 161 Signed Impressions: Service Date/Time: August 16:40 - CONCLUSION: 1. Generalized interstitial prominence presenting either interstitial pneumonitis or possibly early pulmonary edema. 2. No other significant abnormality. Dequan Nuñez MD Course I reviewed the patient's CT scan and MRI showing mild ventriculomegaly but also showing cortical atrophy. Mild periventricular white matter changes consistent with ischemia. I see no evidence of significant transependymal fluid migration on either the CT or MRI. Assessment and Plan Assessment and Plan Assessment: Ventriculomegaly with cortical atrophy. Patient has symptoms of mild gait ataxia but does not have the triad of normal pressure hydrocephalus. I think it is unlikely that the patient has new onset normal-pressure hydrocephalus however I did discuss with the patient and her son possible confirmatory studies including cisternogram and temporary lumbar drainage. Plan: At this point they are not interested in pursuing any further diagnosis for NPH. Rather they are wanting her to undergo physical therapy to see if this will improve her symptoms and strength in her gait. If she has worsening of her gait or should she develop any other symptoms of NPH then confirmatory studies would be indicated. Jozef Castrejon MD Sep 04, 2017 13:57
--- NOTE | 2017-09-04 15:10 | PD.CARD.PN ---
Subjective Subjective Remarks no chest pain doing well Objective Medications Current Medications Medications (Trade) Dose Ordered Sig/Lianet Route Start Time Stop Time Status Last Admin (SINEquan) 50 mg HS PO 09/02/17 21:00 09/03/17 22:17 (Synthroid) 50 mcg DAILY@0600 PO 09/03/17 06:00 09/04/17 05:06 (Inderal) 40 mg Q8HR PO 09/02/17 22:00 09/04/17 13:47 (Coumadin) 3 mg SuMoWeThFrSa@1600 PO 09/02/17 20:00 Future Hold (Coumadin) 2 mg Tu@1600 PO 09/07/17 16:00 Future Hold (NS Flush) 2 ml UNSCH PRN IV FLUSH 09/02/17 18:30 (NS Flush) 2 ml BID IV FLUSH 09/02/17 21:00 09/04/17 09:24 (Narcan Inj) 0.4 mg UNSCH PRN IV PUSH 09/02/17 18:30 (Milk Of Magnesia Liq) 30 ml Q12H PRN PO 09/02/17 18:30 (Senokot) 17.2 mg Q12H PRN PO 09/02/17 18:30 (Dulcolax Supp) 10 mg DAILY PRN RECTAL 09/02/17 18:30 (Lactulose Liq) 30 ml DAILY PRN PO 09/02/17 18:30 (Cordarone) 200 mg DAILY PO 09/04/17 09:00 09/04/17 09:24 (Vitamin D3) 1,000 units BID PO 09/03/17 21:00 09/04/17 09:24 (Terra-Colace) 1 tab BID PO 09/03/17 21:00 09/04/17 09:23 (Arava) 20 mg DAILY PO 09/04/17 09:00 09/04/17 13:46 (Theragran M Tab) 1 tab DAILY PO 09/04/17 09:00 09/04/17 09:24 (Zofran Inj) 4 mg Q6HR PRN IV PUSH 09/03/17 12:30 09/03/17 17:21 (Tylenol) 650 mg Q4H PRN PO 09/03/17 13:30 09/04/17 11:22 (Cipro) 250 mg Q12HR PO 09/04/17 21:00 (Lexapro) 10 mg DAILY PO 09/04/17 12:45 09/04/17 13:47 (Xanax) 0.25 mg Q8H PRN PO 09/04/17 13:00 (Prinivil) 2.5 mg DAILY PO 09/05/17 09:00 Vital Signs / I&O Vital Signs Date Time Temp Pulse Resp B/P (MAP) Pulse Ox O2 Delivery O2 Flow Rate FiO2 09/04/17 11:00 71 16 120/67 (84) 96 09/04/17 09:30 102/54 (70) 09/04/17 09:30 98/50 (66) 09/04/17 08:00 96 Room Air 09/04/17 07:00 72 09/04/17 07:00 98.2 73 16 120/70 (87) 95 09/04/17 06:00 72 09/04/17 05:00 72 09/04/17 04:00 72 09/04/17 03:00 72 09/04/17 02:00 72 09/04/17 01:00 74 09/04/17 00:00 74 09/04/17 00:00 98.0 74 18 121/71 (88) 98 09/03/17 23:00 78 09/03/17 22:00 92 09/03/17 21:00 82 09/03/17 20:00 Nasal Cannula 2.00 09/03/17 20:00 97.8 84 18 105/64 (78) 92 09/03/17 20:00 80 09/03/17 19:00 82 09/03/17 18:30 81 09/03/17 18:30 96.9 61 18 108/56 (73) 98 I/O 09/03/17 09/03/17 09/03/17 09/04/17 09/04/17 09/04/17 07:00 15:00 23:00 07:00 15:00 23:00 Intake Total 100 ml 240 ml 360 ml Output Total 350 ml Balance 100 ml 240 ml 10 ml Intake Oral 240 ml 360 ml IV Total 100 ml Output Urine Total 350 ml # Voids 3 # Bowel Movements 1 Physical Exam GENERAL: SKIN: Warm and dry. HEAD: Normocephalic. EYES: No scleral icterus. No injection or drainage. NECK: Supple, trachea midline. No JVD or lymphadenopathy. CARDIOVASCULAR: Regular rate and rhythm without murmurs, gallops, or rubs. RESPIRATORY: Breath sounds equal bilaterally. No accessory muscle use. GASTROINTESTINAL: Abdomen soft, non-tender, nondistended. MUSCULOSKELETAL: No cyanosis, or edema. BACK: Nontender without obvious deformity. No CVA tenderness. Laboratory Laboratory Tests Test 09/04/17 04:53 White Blood Count 9.9 TH/MM3 Red Blood Count 4.17 MIL/MM3 Hemoglobin 12.4 GM/DL Hematocrit 36.6 % Mean Corpuscular Volume 87.7 FL Mean Corpuscular Hemoglobin 29.6 PG Mean Corpuscular Hemoglobin Concent 33.8 % Red Cell Distribution Width 14.7 % Platelet Count 143 TH/MM3 Mean Platelet Volume 8.5 FL Neutrophils (%) (Auto) 79.7 % Lymphocytes (%) (Auto) 9.4 % Monocytes (%) (Auto) 10.4 % Eosinophils (%) (Auto) 0.2 % Basophils (%) (Auto) 0.3 % Neutrophils # (Auto) 7.9 TH/MM3 Lymphocytes # (Auto) 0.9 TH/MM3 Monocytes # (Auto) 1.0 TH/MM3 Eosinophils # (Auto) 0.0 TH/MM3 Basophils # (Auto) 0.0 TH/MM3 CBC Comment DIFF FINAL Differential Comment Blood Urea Nitrogen 15 MG/DL Creatinine 0.64 MG/DL Random Glucose 89 MG/DL Calcium Level 8.3 MG/DL Sodium Level 136 MEQ/L Potassium Level 3.7 MEQ/L Chloride Level 102 MEQ/L Carbon Dioxide Level 26.9 MEQ/L Anion Gap 7 MEQ/L Estimat Glomerular Filtration Rate 89 ML/MIN Imaging Last Impressions Brain MRI 09/03/17 0000 Signed Impressions: Service Date/Time: Sunday, September 03, 2017 16:34 - CONCLUSION: 1. Ventricular prominence is stable but I believe out of proportion to the degree of cortical atrophy. Findings could represent normal pressure hydrocephalus in the appropriate clinical setting. 2. Very minimal periventricular small vessel ischemic demyelination. 3. Chronic sinusitis, right sphenoid Jordan Louis MD Head CT 09/02/17 1612 Signed Impressions: Service Date/Time: August 16:28 - CONCLUSION: 1. No acute intracranial abnormality is identified. 2. Chronic right sphenoid sinus disease. Diego Johnston MD Chest X-Ray 09/02/17 1612 Signed Impressions: Service Date/Time: August 16:40 - CONCLUSION: 1. Generalized interstitial prominence presenting either interstitial pneumonitis or possibly early pulmonary edema. 2. No other significant abnormality. Dequan Nuñez MD Assessment and Plan Assessment and Plan NSTEMI - [facility] no significant obstructive CAD. likely related to cardiomyopathy Takotsubo cardiomyopathy - low dose ACEi. FU 2d echo in 2 months. monitor salt and weight dizziness - 7 day event monitor as outpatient ataxia - PT OT DC planning FU with Dr. mcdaniel FU with me in 1 month call with questions will sign off Steve Lawson MD Sep 04, 2017 15:10
[2017-09-04] MEDS: ASPIRIN EC 81 MG TABEC PO SCH (17:44)
[2017-09-04] MEDS: ATORVASTATIN 20 MG TAB PO SCH (17:45)
[2017-09-04] MEDS ORDERED: CIPROFLOXACIN 500 MG TAB PO SCH (21:00)
[2017-09-04] MEDS: CIPROFLOXACIN 500 MG TAB PO SCH (21:18)
[2017-09-04] MEDS: DOXEPIN HCL 50 MG CAP PO SCH (21:19)
[2017-09-05] VITALS (25 sets, daily range): BP systolic 105–137; BP diastolic 57–73; PULSE 60–84; RESP 14–18; TEMP 97.4–98.5; O2SAT 92–97
[2017-09-05] MEDS: PROPRANOLOL HCL 40 MG TAB PO SCH (05:22)
[2017-09-05] MEDS: LEVOTHYROXINE SODIUM 50 MCG TAB PO SCH (05:22)
[2017-09-05] MEDS ORDERED: ATROPINE SULFATE 1 MG/10 ML SYRINGE ONE (08:55)
[2017-09-05] MEDS ORDERED: EPINEPHrine HCL (1:10,000) 1 MG/10 ML SYRINGE ONE (08:55)
[2017-09-05] MEDS: LEFLUNOMIDE 20 MG TAB PO SCH (09:00)
[2017-09-05] MEDS ORDERED: LISI-519 PO (09:27)
[2017-09-05] MEDS ORDERED: CIPR-9 PO (09:27)
[2017-09-05] MEDS ORDERED: ATOR20TA15 PO (09:27)
[2017-09-05] MEDS ORDERED: ESCI10TA PO (09:27)
--- NOTE | 2017-09-05 09:30 | HHI.DCPOC ---
Discharge Care Plan Diagnosis: (1) Takotsubo cardiomyopathy Goals to Promote Your Health * To prevent worsening of your condition and complications * To maintain your health at the optimal level Directions to Meet Your Goals Take your medications as prescribed Follow your dietary instruction Follow activity as directed Keep your appointments as scheduled Take your immunizations and boosters as scheduled If your symptoms worsen call your PCP, if no PCP go to Urgent Care Center or Emergency Room Smoking is Dangerous to Your Health. Avoid second hand smoke Call the 24-hour hour crisis hotline for domestic abuse at Kamala Syed Sep 05, 2017 09:30 [place] Li DO Sep 06, 2017 22:19
--- NOTE | 2017-09-05 09:40 | RADRPT ---
EXAM DATE/TIME: 09/05/2017 00:00 [facility] COMPARISON: No previous studies available for comparison. INDICATIONS : Difficulty Swallowing FLUORO TIME: 2.2 minutes IMAGE COUNT: 0 CONTRAST: Dose as prescribed by speech pathologist. MEDICAL HISTORY : Rheumatoid arthritis. Hypothyroidism. CKD SURGICAL HISTORY : Hysterectomy. Cholecystectomy. Cardiac ablation. Cataracts. Basal cell carcinoma removed ENCOUNTER: Initial ACUITY: 1 day PAIN SCORE: 0/10 LOCATION: esophagus FINDINGS: A modified barium swallow was performed with speech pathology. Patient was given a variety of liquids to swallow. Vestibular penetration without rasta aspiration was noted during continuous swallowing of thin liquid . Residual semisolid and solid material is evident in the vallecula during swallowing which the patient was able to clear without difficulty. For a full detailed report, see report by the speech pathologist. CONCLUSION: 1. Vestibular penetration without aspiration during swallowing of thin liquids. 2. Post-swallowing residual in the vallecula during swallowing of semisolid and solid material. Dequan Nuñez MD on September 05, 2017 at 9:37 Board Certified Radiologist. This report was verified electronically.
--- NOTE | 2017-09-05 09:40 | HHI.DS ---
Discharge Summary Admission Date Sep 02, 2017 at 17:55 Discharge Date: Sep 06, 2017 Admitting Diagnosis elevated troponin, dizziness, hypothyroidism (1) Pre-syncope ICD Codes: R55 - Syncope and collapse Status: Acute (2) Dizziness ICD Codes: R42 - Dizziness and giddiness Status: Acute (3) Elevated troponin I level ICD Codes: R74.8 - Abnormal levels of other serum enzymes Status: Acute (4) Gait difficulty ICD Codes: R26.9 - Unspecified abnormalities of gait and mobility (5) Hypothyroidism ICD Codes: E03.9 - Hypothyroidism Status: Chronic (6) Atrial fibrillation ICD Codes: I48.91 - Unspecified atrial fibrillation (7) UTI (urinary tract infection) ICD Codes: N39.0 - UTI (urinary tract infection) Status: Chronic (8) Difficulty swallowing ICD Codes: R13.10 - Dysphagia, unspecified (9) Anxiety ICD Codes: F41.9 - Anxiety disorder, unspecified Consultants Dr. Renny Castrejon Procedures cardiac catheterization 09/03/[address] Lawson Brief History 82-year-old female came to the emergency room with history of sudden onset dizziness after she came back home after collecting her mail. This made her fall and hit her head on the floor. Patient did not lose consciousness. She is on Coumadin for atrial fibrillation. She says this happened at around 2 PM. Because of the Coumadin her son was concerned and brought her to the emergency room. Patient says that currently she does not feel as dizzy. She does have history of dizziness from time to time for past 4months but has never fallen like this before. Son says really has had unsteady gait associated with the dizziness for 4 months and was worse today. Patient has history of atrial fib and had ablation 11/10 and has been in sinus since. Patient denies any ringing sensation in her ears or deafness. She was hypertensive when I arrived with blood pressure of 189 systolic. Patient denies of any headache or chest pain. She says after she fell she was able to get up from the floor and walk. She denies of any pain anywhere else. Patient had her INR checked this morning but does not know the result. Patient had recent normal carotid ultrasound . In er work included troponin level which was slightly elevated and cardiac was notified and was admitted for evaluation. CBC/BMP: 09/04/17 0453 09/04/17 0453 Significant Findings Laboratory Tests Test 09/02/17 16:20 09/02/17 16:55 09/02/17 16:58 09/03/17 05:50 Urine Leukocyte Esterase LARGE (NEG) Urine WBC 25-49 /hpf (0-5) Urine WBC Clumps RARE (NONE) Urine Bacteria FEW /hpf (NONE) Monocytes (%) (Auto) 12.1 % (0.0-8.0) Prothrombin Time 21.0 SEC (9.8-11.6) Blood Urea Nitrogen 19 MG/DL (7-18) Estimat Glomerular Filtration Rate 53 ML/MIN (>89) Troponin I 0.40 NG/ML (0.02-0.05) 5.76 NG/ML (0.02-0.05) Thyroid Stimulating Hormone 3rd Gen 3.850 uIU/ML (0.358-3.740) Test 09/04/17 04:53 Platelet Count 143 TH/MM3 (150-450) Neutrophils (%) (Auto) 79.7 % (16.0-70.0) Monocytes (%) (Auto) 10.4 % (0.0-8.0) Neutrophils # (Auto) 7.9 TH/MM3 (1.8-7.7) Lymphocytes # (Auto) 0.9 TH/MM3 (1.0-4.8) Monocytes # (Auto) 1.0 TH/MM3 (0-0.9) Calcium Level 8.3 MG/DL (8.5-10.1) Imaging Last Impressions Brain MRI 09/03/17 0000 Signed Impressions: Service Date/Time: Sunday, September 03, 2017 16:34 - CONCLUSION: 1. Ventricular prominence is stable but I believe out of proportion to the degree of cortical atrophy. Findings could represent normal pressure hydrocephalus in the appropriate clinical setting. 2. Very minimal periventricular small vessel ischemic demyelination. 3. Chronic sinusitis, right sphenoid Jordan Louis MD Head CT 09/02/171611 Signed Impressions: Service Date/Time: August 16:28 - CONCLUSION: 1. No acute intracranial abnormality is identified. 2. Chronic right sphenoid sinus disease. Diego Johnston MD Chest X-Ray 09/02/171611 Signed Impressions: Service Date/Time: August 16:40 - CONCLUSION: 1. Generalized interstitial prominence presenting either interstitial pneumonitis or possibly early pulmonary edema. 2. No other significant abnormality. Dequan Nuñez MD PE at Discharge GENERAL: 82 year old female patient does appear fatigued but in no acute distress SKIN: Warm and dry. CARDIOVASCULAR: Regular rate and rhythm. RESPIRATORY: No accessory muscle use. Clear to auscultation. Breath sounds equal bilaterally. MUSCULOSKELETAL: Extremities without clubbing, cyanosis, or edema. No obvious deformities. NEUROLOGICAL: Awake and alert. No obvious cranial nerve deficits. Motor grossly within normal limits. 4 out of 5 muscle strength in the arms and legs. Normal speech. PSYCHIATRIC: Appropriate mood and affect; insight and judgment normal. Hospital Course Pre-syncope Dizziness Gait difficulty dizziness with some gait difficulty recent outpatient carotid ultrasound negative CT head reviewed and reveals no acute intracranial abnormalities Orthostatic vital signs (09/02) negative for orthostatic hypotension continue telemetry monitoring add MERCEDES hose MRI reveals ventricular prominence is stable but out of proportion to the degree of cortical atrophy. Findings could represent normal pressure hydrocephalus in the appropriate clinical setting. Consult Neurosurgery- who discussed options with patient and family. They are not interested in pursuing diagnosis of NPH at this point. would like to continue PT for strengthening. If patient has worsening of gait or develop other symptoms of NPH then further studies would be indicated PT requested recommending home with home PT Takotsubo cardiomyopathy Elevated troponin S/P cardiac catheterization 09/03 Mild nonobstructive coronary disease. Normal left ventricle. Normal ascending aorta Echocardiogram showed EF 25-30%. diffuse global hypokinesis with distinct regional wall motion abnormalities (best preserved at anterior and posterior basal segments consistent with Takotsubo cardiomyopathy) low dose ACEi. FU 2d echo in 2 months. monitor salt and weight dizziness - 7 day event monitor as outpatient recommended per cardiology FU with Dr. Lawson in 1 month Hypothyroidism TSH minimally elevated 3.850 free T4 1.43 continue home Synthroid Atrial Fibrillation- currently in SR continue telemetry Coumadin on hold at this time possible upcoming procedure no further procedure planned at this time resume home Coumadin dosing UTI Patient takes Keflex daily for prophylactic was started on Rocephin IV in patient due to UA results Urine culture reveals pseudomonas aeruginosa sensitive to Cipro Rocephin DC'd, started Cipro 250 mg PO BID QTC 462 will recheck EKG QTC 439 Difficultly swallowing Modified barium swallow reviewed and reveals Vestibular penetration without aspiration during swallowing of thin liquids. Post-swallowing residual in the vallecula during swallowing of semisolid and solid material. Speech therapy consulted Anxiety Patient's family reports increased anxiety since 10/2016 after cardiac ablation. patient does endorse anxiety when asked directly will start Lexapro daily also add as needed Xanax while in hospital New complaints of Left shoulder pain X ray ordered- if x ray negative plan to DC with out patient orthopedic follow up 1) f/u with PCP, Dr. Dany Gallardo, in 1 week 2) f/u with Cardiology, Dr. Steve Lawson, in 2 weeks. You need to call [facility] and obtain a 7day event monitor within next week. Your inr can be checked by [facility] and sent to dr Lawson. You also need a 2d echo in 2months with dr Lawson. 3) f/u with Orthopedist, Dr. Jozef Oseguera, in 2 weeks Pt Condition on Discharge: Stable Discharge Disposition: Disch w/ Home Health Serv Discharge Instructions DIET: Follow Instructions for: Heart Healthy Diet Activities you can perform: Regular-No Restrictions Follow up Referrals: Cardiology - [address] Lawson Orthopedics - 2 Weeks with Jozef Oseguera MD PCP Follow-up - [address] Gallardo New Medications: Aspirin (Aspirin) 81 Mg Chew 81 MG CHEW DAILY for takotsubo, #180 TAB 0 Refills Alprazolam (Xanax) 0.25 Mg Tab 0.25 MG PO Q8H PRN for anxiety, #15 TAB 0 Refills Atorvastatin (Atorvastatin) 20 Mg Tab 20 MG PO DAILY for cholesterol, #30 TAB Ciprofloxacin (Cipro) 500 Mg Tab 250 MG PO Q12HR for antibiotic. UTI, #5 TAB 0 Refills Escitalopram (Escitalopram) 10 Mg Tab 10 MG PO DAILY for anxiety, #30 TAB 0 Refills Lisinopril (Lisinopril) 5 Mg Tab 2.5 MG PO DAILY for blood pressure, heart, #30 TAB Continued Medications: Amiodarone (Amiodarone) 200 Mg Tab 200 MG PO DAILY for afib, #30 TAB 6 Refills Ascorbic Acid ER (Vitamin C Tr) 500 Mg Caper 3000 MG PO DAILY for Nutritional Supplement, #30 CAP 0 Refills Cholecalciferol (Vitamin D3) 1,000 Unit Tab 1000 UNITS PO BID for Nutritional Supplement, #1 BOTTLE 0 Refills Coenzyme Q10 (Ubidecarenone) (Coq-10) 50 Mg Cap 100 MG PO DAILY Doxepin (Doxepin) 50 Mg Cap 50 MG PO HS, #30 CAP 0 Refills Leflunomide (Leflunomide) Unknown Strength Tab 20 MG PO DAILY, TAB Levothyroxine (Levothyroxine) 50 Mcg Tab 50 MCG PO DAILY for Thyroid, #30 TAB 0 Refills Multiple Vitamins W/ Minerals (Thera M Plus) 1 Tab 1 TAB PO DAILY for Nutritional Supplement, TAB 0 Refills Warfarin (Warfarin) 3 Mg Tab 3 MG PO SUMOWETH for Blood Clot Prevention, #30 TAB 0 Refills Take 1 tablet (3mg) on Wednesday,Wednesday,Wednesday,,Wednesday and Wednesday Warfarin (Warfarin) 2 Mg Tab 2 MG PO WEDNESDAY for Blood Clot Prevention, #30 TAB 0 Refills Discontinued Medications: Cephalexin (Keflex) 500 Mg Cap 500 MG PO HS for Infection, CAP 0 Refills Propranolol (Propranolol) 40 Mg Tab 40 MG PO Q8HR for afib, #90 TAB 6 Refills Additional Information Patient examined. Assessment and plan formulated with Kamala Syed PA-C. I agree with the above. Kamala Syed Sep 05, 2017 09:40 [place] Li DO Sep 06, 2017 22:19
--- NOTE | 2017-09-05 09:42 | PD.CARD.PN ---
Subjective Subjective Remarks no chest pain doing well Objective Medications Current Medications Medications (Trade) Dose Ordered Sig/Lianet Route Start Time Stop Time Status Last Admin (SINEquan) 50 mg HS PO 09/02/17 21:00 09/04/17 21:19 (Synthroid) 50 mcg DAILY@0600 PO 09/03/17 06:00 09/05/17 05:22 (Inderal) 40 mg Q8HR PO 09/02/17 22:00 09/05/17 05:22 (Coumadin) 3 mg SuMoWeThFrSa@1600 PO 09/02/17 20:00 Future Hold (Coumadin) 2 mg Tu@1600 PO 09/07/17 16:00 Future Hold (NS Flush) 2 ml UNSCH PRN IV FLUSH 09/02/17 18:30 (NS Flush) 2 ml BID IV FLUSH 09/02/17 21:00 09/04/17 21:00 (Narcan Inj) 0.4 mg UNSCH PRN IV PUSH 09/02/17 18:30 (Milk Of Magnesia Liq) 30 ml Q12H PRN PO 09/02/17 18:30 (Senokot) 17.2 mg Q12H PRN PO 09/02/17 18:30 (Dulcolax Supp) 10 mg DAILY PRN RECTAL 09/02/17 18:30 (Lactulose Liq) 30 ml DAILY PRN PO 09/02/17 18:30 (Cordarone) 200 mg DAILY PO 09/04/17 09:00 09/04/17 09:24 (Vitamin D3) 1,000 units BID PO 09/03/17 21:00 09/04/17 21:18 (Terra-Colace) 1 tab BID PO 09/03/17 21:00 09/04/17 21:18 (Arava) 20 mg DAILY PO 09/04/17 09:00 09/04/17 13:46 (Theragran M Tab) 1 tab DAILY PO 09/04/17 09:00 09/04/17 09:24 (Zofran Inj) 4 mg Q6HR PRN IV PUSH 09/03/17 12:30 09/03/17 17:21 (Tylenol) 650 mg Q4H PRN PO 09/03/17 13:30 09/04/17 18:34 (Cipro) 250 mg Q12HR PO 09/04/17 21:00 09/04/17 21:18 (Lexapro) 10 mg DAILY PO 09/04/17 12:45 09/04/17 13:47 (Xanax) 0.25 mg Q8H PRN PO 09/04/17 13:00 (Prinivil) 2.5 mg DAILY PO 09/05/17 09:00 (Ecotrin Ec) 81 mg DAILY PO 09/04/17 15:15 09/04/17 17:44 (Lipitor) 20 mg DAILY PO 09/04/17 15:15 09/04/17 17:45 Vital Signs / I&O Vital Signs Date Time Temp Pulse Resp B/P (MAP) Pulse Ox O2 Delivery O2 Flow Rate FiO2 09/05/17 07:00 98.2 72 14 105/58 (74) 93 09/05/17 06:05 74 09/05/17 05:06 70 09/05/17 04:47 98.5 72 108/57 (74) 92 09/05/17 04:00 63 09/05/17 03:31 63 09/05/17 02:00 64 09/05/17 01:00 64 09/05/17 00:00 66 09/04/17 23:00 97.6 68 117/70 (86) 91 09/04/17 23:00 64 09/04/17 22:00 72 09/04/17 21:00 70 09/04/17 20:00 98.1 74 117/62 (80) 93 09/04/17 20:00 Room Air 09/04/17 20:00 72 09/04/17 19:00 68 09/04/17 18:00 70 09/04/17 17:00 72 09/04/17 16:00 74 09/04/17 15:51 97.8 72 16 112/67 (82) 96 09/04/17 15:00 74 09/04/17 14:00 70 09/04/17 13:00 72 09/04/17 12:00 70 09/04/17 11:00 72 09/04/17 11:00 71 16 120/67 (84) 96 09/04/17 10:00 74 I/O 09/04/17 09/04/17 09/04/17 09/05/17 09/05/17/12/17 07:00 15:00 23:00 07:00 15:00 23:00 Intake Total 360 ml 800 ml 480 ml Output Total 350 ml 751 ml 600 ml Balance 10 ml 49 ml -120 ml Intake Oral 360 ml 800 ml 480 ml Output Urine Total 350 ml 750 ml 600 ml Stool Total 1 ml # Voids 1 Physical Exam GENERAL: SKIN: Warm and dry. HEAD: Normocephalic. EYES: No scleral icterus. No injection or drainage. NECK: Supple, trachea midline. No JVD or lymphadenopathy. CARDIOVASCULAR: Regular rate and rhythm without murmurs, gallops, or rubs. RESPIRATORY: Breath sounds equal bilaterally. No accessory muscle use. GASTROINTESTINAL: Abdomen soft, non-tender, nondistended. MUSCULOSKELETAL: No cyanosis, or edema. BACK: Nontender without obvious deformity. No CVA tenderness. Assessment and Plan Assessment and Plan NSTEMI - LHC no significant obstructive CAD. likely related to cardiomyopathy Takotsubo cardiomyopathy - low dose ACEi. FU 2d echo in 2 months. monitor salt and weight dizziness - 7 day event monitor as outpatient ataxia - PT OT DC planning FU with Dr. mcdaniel FU with me in 1 month coumadin + asa 81 INR as outpatient next week monitor for bleeding closely. Steve Lawson MD Sep 05, 2017 09:42
[2017-09-05] MEDS: ATORVASTATIN 20 MG TAB PO SCH (09:48)
[2017-09-05] MEDS: ESCITALOPRAM OXALATE 10 MG TAB PO SCH (09:49)
[2017-09-05] MEDS: MULTIVITAMINS/MINERALS THERAPEUTIC TAB PO SCH (09:49)
[2017-09-05] MEDS: CIPROFLOXACIN 500 MG TAB PO SCH ×2 (09:49→21:19)
[2017-09-05] MEDS: CHOLECALCIFEROL (VIT D3) 1000 UNIT TAB PO SCH ×2 (09:49→21:20)
[2017-09-05] MEDS: AMIODARONE 200 MG TAB PO SCH (09:49)
[2017-09-05] MEDS: DOCUSATE SODIUM 50 MG/SENNA 8.6 MG TAB PO SCH ×2 (09:50→21:21)
[2017-09-05] MEDS: ASPIRIN EC 81 MG TABEC PO SCH (09:50)
[2017-09-05] MEDS: LISINOPRIL 5 MG TAB PO SCH (09:51)
[2017-09-05] MEDS: SODIUM CHLORIDE 0.9% FLUSH 10 ML FLUSH IV FLUSH SCH ×2 (09:52→21:21)
[2017-09-05] MEDS: ACETAMINOPHEN 325 MG TAB PO PRN ×2 (09:54→21:20)
--- NOTE | 2017-09-05 10:42 | HHI.FF ---
Face to Face Verification Diagnosis: (1) Swallowing impaired (2) Takotsubo cardiomyopathy (3) Chronic atrial fibrillation (4) Dizziness (5) UTI (urinary tract infection) Physical Therapy Order: Evaluate and Treat, Improve ambulation, Strength and gait training Occupational Therapy Order: Evaluate and Treat Speech Therapy Order: To Improve: Swallowing Home Health Nursing Order: Medical education Signs/symptoms of disease process Medication education-adverse effect Nursing assessment with vital signs Instructions: inr check 09/09.notify dr Lawson and pcp office with results. I have seen patient Kisha Min on 09/05/17. My clinical findings support the need for the requested home health care services because: Ltd mobility high fall risks Ltd mobility - disease progression I certify that my clinical findings support that this patient is homebound because: poor cardiac reserve Poor cardiac reserve Kamala Syed Sep 05, 2017 10:42 Derek Chaidez MD Sep 06, 2017 10:36 Cleveland Li DO Sep 06, 2017 22:18
[2017-09-05] MEDS ORDERED: ALPR.25 PO (10:43)
--- NOTE | 2017-09-05 11:25 | HHI.PR ---
Subjective Remarks Patient reports feeling well offers no complaints family at bedside very concerned regarding low BP and patient's dizziness on admission Also new concerns of left shoulder pain after pulling herself up in the bed Objective Vitals Vital Signs Date Time Temp Pulse Resp B/P (MAP) Pulse Ox O2 Delivery O2 Flow Rate FiO2 09/05/17 07:00 98.2 72 14 105/58 (74) 93 09/05/17 06:05 74 09/05/17 05:06 70 09/05/17 04:47 98.5 72 108/57 (74) 92 09/05/17 04:00 63 09/05/17 03:31 63 09/05/17 02:00 64 09/05/17 01:00 64 09/05/17 00:00 66 09/04/17 23:00 97.6 68 117/70 (86) 91 09/04/17 23:00 64 09/04/17 22:00 72 09/04/17 21:00 70 09/04/17 20:00 98.1 74 117/62 (80) 93 09/04/17 20:00 Room Air 09/04/17 20:00 72 09/04/17 19:00 68 09/04/17 18:00 70 09/04/17 17:00 72 09/04/17 16:00 74 09/04/17 15:51 97.8 72 16 112/67 (82) 96 09/04/17 15:00 74 09/04/17 14:00 70 09/04/17 13:00 72 09/04/17 12:00 70 Result Diagram: 09/04/17 0453 09/04/17 0453 Imaging Last [address] 09/02/171611 Signed Impressions: Service Date/Time: August 16:28 - CONCLUSION: 1. No acute intracranial abnormality is identified. 2. Chronic right sphenoid sinus disease. Diego Johnston MD Chest X-Ray 09/02/171611 Signed Impressions: Service Date/Time: August 16:40 - CONCLUSION: 1. Generalized interstitial prominence presenting either interstitial pneumonitis or possibly early pulmonary edema. 2. No other significant abnormality. Dequan Nuñez MD Objective Remarks GENERAL: 82 year old female patient does appear fatigued but in no acute distress SKIN: Warm and dry. CARDIOVASCULAR: Regular rate and rhythm. RESPIRATORY: No accessory muscle use. Clear to auscultation. Breath sounds equal bilaterally. MUSCULOSKELETAL: Extremities without clubbing, cyanosis, or edema. No obvious deformities. unable to elicit shoulder pain on exam. Patient has FROM of LUE NEUROLOGICAL: Awake and alert. No obvious cranial nerve deficits. Motor grossly within normal limits. 4 out of 5 muscle strength in the arms and legs. Normal speech. PSYCHIATRIC: Appropriate mood and affect; insight and judgment normal. Procedures cardiac catheterization 09/03/[address] Lawson A/P Problem List: (1) Pre-syncope ICD Codes: R55 - Syncope and collapse Status: Acute Plan: Pre-syncope Dizziness dizziness with some gait difficulty recent outpatient carotid ultrasound negative CT head reviewed and reveals no acute intracranial abnormalities Orthostatic vital signs (09/02) negative for orthostatic hypotension continue telemetry monitoring add MERCEDES hose MRI reveals ventricular prominence is stable but out of proportion to the degree of cortical atrophy. Findings could represent normal pressure hydrocephalus in the appropriate clinical setting. Consult Neurosurgery Patient now on Propranolol, low dose Lisinopril and amiodarone with borderline BP. Will DC propranolol and continue to monitor BP PT requested (2) Dizziness ICD Codes: R42 - Dizziness and giddiness Status: Acute Plan: see above (3) Elevated troponin I level ICD Codes: R74.8 - Abnormal levels of other serum enzymes Status: Acute Plan: Elevated troponin S/P cardiac catheterization 09/03 Mild nonobstructive coronary disease. Normal left ventricle. Normal ascending aorta Echocardiogram showed EF 25-30%. diffuse global hypokinesis with distinct regional wall motion abnormalities (best preserved at anterior and posterior basal segments consistent with Takotsubo cardiomyopathy) supportive care (4) Gait difficulty ICD Codes: R26.9 - Unspecified abnormalities of gait and mobility Plan: MRI reveals ventricular prominence is stable but out of proportion to the degree of cortical atrophy. Findings could represent normal pressure hydrocephalus in the appropriate clinical setting. Patient and family reports worsening gait over the past 4 months patient does endorse urinary incontinence which has been chronic for years and does not seem to have changed recently Consult Neurosurgery PT requested (5) Hypothyroidism ICD Codes: E03.9 - Hypothyroidism Status: Chronic Plan: Hypothyroidism TSH minimally elevated 3.850 free T4 1.43 continue home Synthroid (6) Atrial fibrillation ICD Codes: I48.91 - Unspecified atrial fibrillation Plan: Atrial Fibrillation- currently in SR continue telemetry Coumadin on hold at this time possible upcoming procedure check INR in AM (7) UTI (urinary tract infection) ICD Codes: N39.0 - UTI (urinary tract infection) Status: Chronic Plan: UTI Patient takes Keflex daily for prophylactic was started on Rocephin IV in patient due to UA results Urine culture reveals pseudomonas aeruginosa sensitive to Cipro Rocephin DC'd, started Cipro 250 mg PO BID QTC 462 will recheck EKG in AM DVT prophylaxis with SCDs, Coumadin on hold for possible procedure (8) Difficulty swallowing ICD Codes: R13.10 - Dysphagia, unspecified Plan: Difficult swallowing modified barium swallow evaluation ordered (9) Anxiety ICD Codes: F41.9 - Anxiety disorder, unspecified Plan: Patient's family reports increased anxiety since 10/2016 after cardiac ablation. patient does endorse anxiety when asked directly will start Lexapro daily also add as needed Xanax (10) Shoulder pain ICD Codes: M25.519 - Pain in unspecified shoulder Plan: unable to elicit pain on exam FROM LUE Xray ordered Assessment and Plan Patient examined. Assessment and plan formulated with Kamala Syed PA-C. I agree with the above. Problem Qualifiers (1) Hypothyroidism: Qualified Codes: E03.9 - Hypothyroidism, unspecified (2) UTI (urinary tract infection): Qualified Codes: N39.0 - Urinary tract infection, site not specified Kamala Syed Sep 05, 2017 11:25 [place] Li DO Sep 06, 2017 22:18
[2017-09-05 11:53] LABS: INTERNATIONAL NORMALIZED RATIO 1.4 RATIO; PROTHROMBIN TIME - PATIENT 15.4 SEC (9.8-11.6)
--- NOTE | 2017-09-05 13:08 | EKG ---
Date Performed: 09/05/2017 Time Performed: 04:23:40 PTAGE: 82 years EKG: Sinus rhythm with 1st degree A-V block Possible left anterior fascicular block Possible inferior infarct - age un determined QRS changes V3/V4 may be due to LVH but cannot rule out anterior infarct Abnormal ECG PREVIOUS TRACING : 09/03/2017 05.56 Since previous tracing, no significant change. DOCTOR: Derek Malone Interpretating Date/Time 09/05/2017 13:06:59
[2017-09-05] MEDS: WARFARIN SOD 3 MG TAB PO SCH (16:35)
--- NOTE | 2017-09-05 17:18 | RADRPT ---
EXAM DATE/TIME: 09/05/2017 17:02 [facility] COMPARISON: No previous studies available for comparison. INDICATIONS : Shoulder pain, from fall. MEDICAL HISTORY : None. SURGICAL HISTORY : None. ENCOUNTER: Subsequent ACUITY: 3 days PAIN SCORE: 0/10 LOCATION: Left shoulder FINDINGS: Multiple view examination of the left shoulder demonstrates no evidence of fracture or dislocation. The glenohumeral and acromioclavicular joints are maintained. There is normal range of motion betwee n internal and external rotation. Bony mineralization is normal. CONCLUSION: Negative exam. No fracture or significant degenerative changes. Jordan Louis MD on September 05, 2017 at 17:15 Board Certified Radiologist. This report was verified electronically.
[2017-09-05] MEDS: DOXEPIN HCL 50 MG CAP PO SCH (21:19)
[2017-09-06] VITALS (12 sets, daily range): BP systolic 116; BP diastolic 63; PULSE 69–85; TEMP 97.5; O2SAT 95
[2017-09-06] MEDS: LEVOTHYROXINE SODIUM 50 MCG TAB PO SCH (05:14)
[2017-09-06] MEDS: LEFLUNOMIDE 20 MG TAB PO SCH (09:00)
[2017-09-06] MEDS: DOCUSATE SODIUM 50 MG/SENNA 8.6 MG TAB PO SCH (09:00)
[2017-09-06] MEDS: SODIUM CHLORIDE 0.9% FLUSH 10 ML FLUSH IV FLUSH SCH (09:00)
[2017-09-06] MEDS: ATORVASTATIN 20 MG TAB PO SCH (09:15)
[2017-09-06] MEDS: ESCITALOPRAM OXALATE 10 MG TAB PO SCH (09:15)
[2017-09-06] MEDS: ASPIRIN EC 81 MG TABEC PO SCH (09:16)
[2017-09-06] MEDS: AMIODARONE 200 MG TAB PO SCH (09:16)
[2017-09-06] MEDS: MULTIVITAMINS/MINERALS THERAPEUTIC TAB PO SCH (09:16)
[2017-09-06] MEDS: CIPROFLOXACIN 500 MG TAB PO SCH (09:16)
[2017-09-06] MEDS: CHOLECALCIFEROL (VIT D3) 1000 UNIT TAB PO SCH (09:16)
[2017-09-06] MEDS: LISINOPRIL 5 MG TAB PO SCH (09:16)
[2017-09-06] MEDS ORDERED: ASPI-516 CHEW (10:32)
[2017-09-07] MEDS ORDERED: WARFARIN SOD 2 MG TAB PO SCH (16:00)
== END 2017-09-06 10:43 | disposition home health service (06) | DRG 287 ==
LOC: PHED 14:30 → PHEDA 17:55 → PH3A 20:50 → HDIC 09-03 10:24 → HCIS 09-03 17:36
PROVIDERS: ADMIT Hospitalist; ATTEND Hospitalist
PROC: B2111ZZ Fluoroscopy of Multiple Coronary Arteries using Low Osmolar Contrast (ICD-10-PCS; 2017-09-03)
PROC: B3101ZZ Fluoroscopy of Thoracic Aorta using Low Osmolar Contrast (ICD-10-PCS; 2017-09-03)
PROC: 4A023N7 Measurement of Cardiac Sampling and Pressure, Left Heart, Percutaneous Approach (ICD-10-PCS; principal; 2017-09-03 09:45)
DX: I51.81 Takotsubo syndrome (principal); I48.91 Unspecified atrial fibrillation; N39.0 Urinary tract infection, site not specified; R13.10 Dysphagia, unspecified; R42 Dizziness and giddiness; M06.9 Rheumatoid arthritis, unspecified; E03.9 Hypothyroidism, unspecified; K21.9 Gastro-esophageal reflux disease without esophagitis; I25.10 Atherosclerotic heart disease of native coronary artery without angina pectoris; M19.90 Unspecified osteoarthritis, unspecified site; B96.5 Pseudomonas (aeruginosa) (mallei) (pseudomallei) as the cause of diseases classified elsewhere; M25.512 Pain in left shoulder; F40.240 Claustrophobia; I10 Essential (primary) hypertension; R27.0 Ataxia, unspecified; R79.1 Abnormal coagulation profile; R32 Unspecified urinary incontinence; Z85.828 Personal history of other malignant neoplasm of skin; Z87.440 Personal history of urinary (tract) infections; Z79.01 Long term (current) use of anticoagulants; Z91.81 History of falling
CPT/HCPCS: 70450; 70553; 71010; 73030; 74230; 80048; 81001; 82550; 83880; 84439; 84443; 84484; 85025; 85610; 87040; 87077; 87086; 87186; 93005; 93306; 93458; 93567; A9579; C1769; C1893; J0171; J0461; J0696; J1644; J2250; J2405; J3010; Q9967

== ENCOUNTER 2018-03-28 09:50 | Observation (INO) | payer MEDICARE ==
[2018-03-28] VITALS (7 sets, daily range): BP systolic 113–175; BP diastolic 55–82; PULSE 54–69; RESP 16–18; TEMP 97–98.5; O2SAT 95–98
[~2018-03-28] VITALS: Ht 177.8 cm; Wt 70.0 kg
[~2018-03-28 09:50] MED LIST changes: +ALPR.25 PO; +ASCO1CAP PO; +ASPI-516 CHEW; +ATOR20TA15 PO; -CALC500T42 PO; -CEPH-460 PO; +CIPR-9 PO; -COQ-100C2 PO; +COQ-50CA2 PO; -COUM4TAB PO; +DOXE50CA3 PO; +ESCI10TA PO; -LACTCAP8 PO; +LISI-519 PO; -M2 M100C PO; -MULT-135 PO; -PROP40TA3 PO; +THERM PO; -VITA10007 PO; +WARF4TAB51 PO
[2018-03-28] MEDS ORDERED: IOHEXOL 350 MG/ML 10 ML VIAL (for RAD DIAG) IVCONTRAST ONE (09:51)
[2018-03-28 12:25] LABS: AUTOMATED NEUTROPHIL # 4.8 TH/MM3 (1.8-7.7); BASOPHIL % 0.6 % (0.0-2.0); EOSINOPHIL # 0.1 TH/MM3 (0-0.4); EOSINOPHIL % 1.6 % (0.0-4.0); HEMOGLOBIN 12.6 GM/DL (11.6-15.3); LYMPH % 14.2 % (9.0-44.0); LYMPHOCYTE # 0.9 TH/MM3 (1.0-4.8); MEAN CELL VOLUME 85.7 FL (80.0-100.0); MEAN CORPUSCULAR HEMOGLOBIN 28.4 PG (27.0-34.0); MEAN CORPUSCULAR HGB CONC 33.1 % (32.0-36.0); MONO % 9.4 % (0.0-8.0); MONOCYTE # 0.6 TH/MM3 (0-0.9); NEUT % 74.2 % (16.0-70.0); PLATELET COUNT 155 TH/MM3 (150-450); RED BLOOD COUNT 4.43 MIL/MM3 (4.00-5.30); RED CELL DISTRIBUTION WIDTH 15.3 % (11.6-17.2); WHITE BLOOD COUNT 6.5 TH/MM3 (4.0-11.0)
[2018-03-28 12:28] LABS: BILIRUBIN, URINE NEG (NEG); BLOOD, URINE NEG (NEG); GLUCOSE,URINE NEG (NEG); KETONE, URINE NEG (NEG); NITRITE,URINE NEG (NEG); PH, URINE 7.5 (5.0-8.5); URINE COLOR YELLOW (YELLW/STRAW); URINE LEUKOCYTE ESTERASE NEG (NEG)
[2018-03-28 12:42] LABS: ALT (GPT) 57 U/L (10-53)
[2018-03-28 12:47] LABS: ALKALINE PHOSPHATASE 97 U/L (45-117); TOTAL BILIRUBIN ADULT 0.7 MG/DL (0.2-1.0); TOTAL PROTEIN 7.3 GM/DL (6.4-8.2); TROPONIN I LESS THAN 0.02 NG/ML (0.02-0.05)
[2018-03-28 13:02] LABS: ALBUMIN 3.2 GM/DL (3.4-5.0); AST (GOT) 69 U/L (15-37); BICARBONATE 26.6 MEQ/L (21.0-32.0); BLOOD UREA NITROGEN 14 MG/DL (7-18); CALCIUM 9.1 MG/DL (8.5-10.1); CHLORIDE 105 MEQ/L (98-107); CREATININE 0.78 MG/DL (0.50-1.00); GLOMERULAR FILTRATION RATE 70 ML/MIN (>89); GLUCOSE,RANDOM 82 MG/DL (74-106); SODIUM (NA) 139 MEQ/L (136-145)
--- NOTE | 2018-03-28 14:09 | RADRPT ---
EXAM DATE: 03/28/2018 1:51 PM EDT AGE/SEX: 83 years / Female INDICATIONS: Patient complains of dizziness and weakness. CLINICAL DATA: This is the patient's initial encounter. Patient reports that signs and symptoms have been present for 1 day and indicates a pain score of 0/10. MEDICAL/SURGICAL HISTORY: Cardiovascular disease. Hypertension. Renal disease. Hysterectomy. RADIATION DOSE: 56.35 CTDI (mGy) COMPARISON: [facility], CT BRAIN W/O CONTRAST, 09/02/2017. . TECHNIQUE: CT of the head without contrast. Using automated exposure control and adjustment of the mA and/or kV according to patient size, radiation dose was kept as low as reasonably achievable to ob tain optimal diagnostic quality images. FINDINGS: Cerebrum: The ventricles are normal for age. No evidence of midline shift, mass lesion, hemorrhage or acute infarction. No extraaxial fluid collections are seen. Posterior Fossa: The cerebellum and brainstem are intact. The 4th ventricle is midline. The cerebe llopontine angle is unremarkable. Extracranial: The visualized portion of the orbits is intact. There is persistent opacification of t he right sphenoid sinus. Skull: The calvaria is intact. No evidence of skull fracture. CONCLUSION: No acute intracranial findings. Electronically signed by: Diego Ram MD 03/28/2018 2:07 PM EDT
--- NOTE | 2018-03-28 14:47 | RADRPT ---
EXAM DATE: 03/28/2018 2:22 PM EDT AGE/SEX: 83 years / Female INDICATIONS: Patient complains of dizziness and weakness. CLINICAL DATA: This is the patient's initial encounter. Patient reports that signs and symptoms have been present for 1 day and indicates a pain score of 0/10. MEDICAL/SURGICAL HISTORY: Cardiovascular disease. Hypertension. Renal disease. Hysterectomy. RADIATION DOSE: 25.76 CTDI (mGy) ; Combined studies COMPARISON: No prior [facility] exams available for comparison. TECHNIQUE: Volumetric scanning was performed using a multi-row detector CT scanner during bolus infu gem of 75 ml Omnipaque 350 (iohexol) nonionic water-soluble contrast as a cumulative dose for multi ple exams. The data was post processed with a variety of visualization algorithms including full vo lume maximum intensity projection, multi-planar sliding thin slab reformation, curved planar reformat ion, and surface rendering techniques. Using automated exposure control and adjustment of the mA and /or kV according to patient size, radiation dose was kept as low as reasonably achievable to obtain o ptimal diagnostic quality images. FINDINGS: There is excellent visualization of the major intracranial arteries out to the second-order branch ve ssels. There is no evidence for aneurysm, vessel truncation or stenosis, and no evidence for vascula r malformation. CONCLUSION: Negative CTA Head. Electronically signed by: Diego Ram MD 03/28/2018 2:46 PM EDT
--- NOTE | 2018-03-28 15:08 | RADRPT ---
EXAM DATE: 03/28/2018 2:26 PM EDT AGE/SEX: 83 years / Female INDICATIONS: Patient complains of dizziness and weakness. CLINICAL DATA: This is the patient's initial encounter. Patient reports that signs and symptoms have been present for 1 day and indicates a pain score of 0/10. MEDICAL/SURGICAL HISTORY: Cardiovascular disease. Hypertension. Renal disease. Hysterectomy. RADIATION DOSE: 25.76 CTDI (mGy) ; Combined studies COMPARISON: No prior [facility] exams available for comparison. TECHNIQUE: Volumetric scanning was performed using a multirow detector CT scanner during bolus infus ion of 75 ml Omnipaque 350 (iohexol) nonionic water-soluble contrast as a cumulative dose for multip le exams. The data was postprocessed with a variety of visualization algorithms including full-volu me maximum intensity projection, multiplanar sliding thin-slab reformation, curved-planar reformation , and surface-rendering techniques. Using automated exposure control and adjustment of the mA and/or kV according to patient size, radiation dose was kept as low as reasonably achievable to obtain opti mal diagnostic quality images. Elevated flow velocities and ICA/CCA ratios have been found to correlate with increased degrees of ve ssel stenosis, calculated as percentage of diameter relative to a normal segment of distal ICA/CCA. FINDINGS: Aortic Arch: There is a three-vessel origin of the great vessels from the aorta. Calcification in th e arch, most prominent at the origin of the left subclavian but no significant stenosis Right Carotid: The common carotid artery is intact. The carotid bulb has a normal configuration wit hout ulceration or narrowing. The internal carotid artery lumen is smooth without stenosis. The ext ernal carotid artery is intact. Left Carotid: The common carotid artery is intact. The carotid bulb has a normal configuration with out ulceration or narrowing. Marked tortuosity of the left internal with no significant stenosis. Th e external carotid artery is intact. Vertebrals: The vertebral arteries have a symmetric diameter. No stenotic lesions are seen. CONCLUSION: 1. Some calcification in the arch. Significant tortuosity of the left internal. 2. However, the arch vessels and cervical vessels are patent throughout with no significant stenosis to explain current clinical symptoms. Electronically signed by: Jordan Louis MD 03/28/2018 3:07 PM EDT
--- NOTE | 2018-03-28 15:17 | PD ---
HPI Chief Complaint: General Weakness Time Seen by Provider: 10:56 Travel History International Travel<30 days: No Contact w/Intl Traveler<30days: No Traveled to known affect area: No History of Present Illness HPI Patient is a 83 year old female who comes in complaining of frequent urination and dizziness. She has had multiple issues with UTIs and wears a Pessary. She is on Keflex chronically for prevention. She says she has been dizzy for a while now and has seen a neurologist for this. She says they have not been able to find a cause of her dizziness. She says it has been worsening over the past few days. She reports falling and hitting her arm yesterday and having difficulty getting up. She denies hitting her head. She denies fever or chills. She denies any chest pain or SOB. Severity is mild to moderate. 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) Cardiovascular Problems: Yes (HTN) High Cholesterol: No Chemotherapy: No Chest Pain: No Congestive Heart Failure: No COPD: No Cerebrovascular Accident: No Diabetes: No Diminished Hearing: No Endocrine: Yes Gastrointestinal Disorders: Yes GERD: No Genitourinary: Yes (RECURRENT UTI'S, PESSARY, CKD stage II) Headaches: No Hepatitis: No Hiatal Hernia: No Heparin Induced Thrombocytopen: No Hypertension: Yes Immune Disorder: Yes Implanted Vascular Access Dvce: No Kidney Stones: No Medical other: No Musculoskeletal: Yes (TMJ, RHEUMATOID ARTHRITIS, HX OF BACK PROBLEMS) Neurologic: No Psychiatric: Yes (CLAUSTROPHOBIC FOR MRI) Reproductive: No Respiratory: No Immunizations Current: Yes Migraines: No Radiation Therapy: No Renal Failure: No Seizures: No Sickle Cell Disease: No Sleep Apnea: No Thyroid Disease: Yes (HYPO) Ulcer: No Menopausal: Yes Past Surgical History Abdominal Surgery: Yes AICD: No Appendectomy: Yes Arteriovenous Shunt: No Cardiac Surgery: Yes (ablation) Cholecystectomy: Yes Ear Surgery: No Endocrine Surgery: No Eye Surgery: Yes (BILATERAL LASER FOR CATARACTS) Genitourinary Surgery: No Gynecologic Surgery: Yes (HYSTERECTOMY ) Hysterectomy: Yes Insulin Pump: No Joint Replacement: No Neurologic Surgery: No Oral Surgery: Yes (TEETH EXTRACTION) Pacemaker: No Thoracic Surgery: No Other Surgery: Yes (PELVIC SLING) Social History Alcohol Use: No Tobacco Use: No Substance Use: No Allergies-Medications (Allergen,Severity, Reaction): Coded Allergies: Sulfa (Sulfonamide Antibiotics) (Unverified Allergy, Severe, ORAL SORES, ) nitrofurantoin (Verified Allergy, Severe, Nausea/Vomiting, 03/28/18) ofloxacin (Unverified Adverse Reaction, Severe, POSSIBLE A FIB, 03/28/18) doxycycline (Unverified Adverse Reaction, Unknown, 03/28/18) INCREASED PAIN OF RHEUMATOID ARTHRITIS meperidine (Unverified Adverse Reaction, Unknown, SEVERE NAUSEA & VOMITING , 03/28/18) Reported Meds & Prescriptions Reported Meds & Active Scripts Active Aspirin 81 Mg Chew 81 Mg CHEW DAILY Xanax (Alprazolam) 0.25 Mg Tab 0.25 Mg PO Q8H PRN Escitalopram (Escitalopram Oxalate) 10 Mg Tab 10 Mg PO DAILY Atorvastatin (Atorvastatin Calcium) 20 Mg Tab 20 Mg PO DAILY Amiodarone (Amiodarone HCl) 200 Mg Tab 200 Mg PO DAILY Reported Leflunomide 20 Mg Tab 20 Mg PO DAILY Probiotic (Saccharomyces Boulardii) 250 Mg Cap 250 Mg PO BID Propranolol (Propranolol HCl) 20 Mg Tab 20 Mg PO Q12HR Vitamin C Tr (Ascorbic Acid) 500 Mg Caper 3,000 Mg PO DAILY Coq-10 (Coenzyme Q10 (Ubidecarenone)) 50 Mg Cap 100 Mg PO DAILY Thera M Plus (Multivitamins/Minerals Therapeutic) 1 Tab 1 Tab PO DAILY Doxepin (Doxepin HCl) 50 Mg Cap 50 Mg PO HS Warfarin 2 Mg Tab 2 Mg PO WEDNESDAY Warfarin 3 Mg Tab 3 Mg PO SUMOWETHFRSA Take 1 tablet (3mg) on Wednesday,Wednesday,Wednesday,,Wednesday and Wednesday Leflunomide Unknown Strength Tab 20 Mg PO DAILY Levothyroxine (Levothyroxine Sodium) 50 Mcg Tab 50 Mcg PO DAILY Vitamin D3 (Cholecalciferol) 1,000 Unit Tab 1,000 Units PO BID Review of Systems Except as stated in HPI: all other systems reviewed are Neg General / Constitutional: No: Fever, Chills Eyes: No: Blurred Vision HENT: Positive: Lightheadedness, No: Headaches Cardiovascular: No: Chest Pain or Discomfort, Palpitations Respiratory: No: Shortness of Breath Gastrointestinal: No: Nausea, Vomiting Genitourinary: Positive: Frequency, No: Dysuria Musculoskeletal: No: Pain Skin: No Rash, No Change in nails Neurologic: Positive: Dizziness, No: Weakness, Syncope Physical Exam Narrative GENERAL: Awake and alert, in no acute distress. SKIN: Focused skin assessment warm/dry. Small area of ecchymosis to the left forearm. No wounds or signs of infection. HEAD: Atraumatic. Normocephalic. EYES: Pupils equal and round and reactive. No scleral icterus. Extraocular movements intact. ENT: Mucous membranes pink and moist. NECK: Trachea midline. No JVD. CARDIOVASCULAR: Regular rate and rhythm. No murmur appreciated. RESPIRATORY: No accessory muscle use. Clear to auscultation. Breath sounds equal bilaterally. GASTROINTESTINAL: Abdomen soft, non-tender, nondistended. MUSCULOSKELETAL: No obvious deformities. No clubbing. No cyanosis. No edema. NEUROLOGICAL: Awake and alert. No obvious cranial nerve deficits. Motor grossly within normal limits. Normal speech. Positive Romberg. PSYCHIATRIC: Appropriate mood and affect; insight and judgment normal. Data Data Last Documented VS Vital Signs Date Time Temp Pulse Resp B/P (MAP) Pulse Ox O2 Delivery O2 Flow Rate FiO2 03/28/18 12:00 62 18 156/75 (102) 97 Room Air 03/28/18 10:01 98.5 Orders Orders Iv Access Insert/Monitor (03/28/18 11:20) Complete Blood Count With Diff (03/28/18 11:20) Comprehensive Metabolic Panel (03/28/18 11:20) Urinalysis - C+S If Indicated (03/28/18 11:20) Electrocardiogram (03/28/18 ) Troponin I (03/28/18 11:20) Ct Brain W/O Iv Contrast(Rout) (03/28/18 ) Cta Brain W Iv Contrast W 3d (03/28/18 ) Cta Neck W Iv Contrast W 3d (03/28/18 ) Iohexol 350 Inj (Omnipaque 350 Inj) (03/28/18 09:51) Basic Metabolic Panel (Bmp) (03/28/18 15:56) Admit Order (Ed Use Only) (03/28/18 ) Labs Laboratory Tests Test 03/28/18 11:45 03/28/18 11:50 03/28/18 16:30 White Blood Count 6.5 TH/MM3 Red Blood Count 4.43 MIL/MM3 Hemoglobin 12.6 GM/DL Hematocrit 38.0 % Mean Corpuscular Volume 85.7 FL Mean Corpuscular Hemoglobin 28.4 PG Mean Corpuscular Hemoglobin Concent 33.1 % Red Cell Distribution Width 15.3 % Platelet Count 155 TH/MM3 Mean Platelet Volume 8.0 FL Neutrophils (%) (Auto) 74.2 % Lymphocytes (%) (Auto) 14.2 % Monocytes (%) (Auto) 9.4 % Eosinophils (%) (Auto) 1.6 % Basophils (%) (Auto) 0.6 % Neutrophils # (Auto) 4.8 TH/MM3 Lymphocytes # (Auto) 0.9 TH/MM3 Monocytes # (Auto) 0.6 TH/MM3 Eosinophils # (Auto) 0.1 TH/MM3 Basophils # (Auto) 0.0 TH/MM3 CBC Comment DIFF FINAL Differential Comment Blood Urea Nitrogen 14 MG/DL 12 MG/DL Creatinine 0.78 MG/DL 0.78 MG/DL Random Glucose 82 MG/DL 107 MG/DL Total Protein 7.3 GM/DL Albumin 3.2 GM/DL Calcium Level 9.1 MG/DL 8.4 MG/DL Alkaline Phosphatase 97 U/L Aspartate Amino Transf (AST/SGOT) 69 U/L Alanine Aminotransferase (ALT/SGPT) 57 U/L Total Bilirubin 0.7 MG/DL Sodium Level 139 MEQ/L 139 MEQ/L Potassium Level 5.7 MEQ/L 3.4 MEQ/L Chloride Level 105 MEQ/L 104 MEQ/L Carbon Dioxide Level 26.6 MEQ/L 26.1 MEQ/L Anion Gap 7 MEQ/L 9 MEQ/L Estimat Glomerular Filtration Rate 70 ML/MIN 70 ML/MIN Troponin I LESS THAN 0.02 NG/ML Urine Color YELLOW Urine Turbidity CLEAR Urine pH 7.5 Urine Specific [place] 1.004 Urine Protein NEG mg/dL Urine Glucose (UA) NEG mg/dL Urine Ketones NEG mg/dL Urine Occult Blood NEG Urine Nitrite NEG Urine Bilirubin NEG Urine Urobilinogen LESS THAN 2.0 MG/DL Urine Leukocyte Esterase NEG Urine WBC LESS THAN 1 /hpf Microscopic Urinalysis Comment CATH-CULT NOT IND MDM Medical Decision Making Medical Screen Exam Complete: Yes Emergency Medical Condition: Yes Medical Record Reviewed: Yes Interpretation(s) ECG shows normal sinus rhythm at a rate of 61, first-degree AV block, no ST elevation or depression Differential Diagnosis Dehydration versus electrolyte abnormality versus intracranial abnormality versus UTI versus dysrhythmia Narrative Course Patient is an 83-year-old female who comes in with complaints of urinary frequency as well as dizziness. Exam shows no neurologic abnormalities. IV established, labs sent. Labs show no acute abnormalities. Potassium is elevated, however the hemolyzed. Creatinine is within normal limits, so this is spurious. CT head performed shows no acute abnormalities. CTA of the head and neck performed show no acute abnormalities. Last 24 hours Impressions Neck CTA 03/28/18 Signed Impressions: CONCLUSION: 1. Some calcification in the arch. Significant tortuosity of the left internal . 2. However, the arch vessels and cervical vessels are patent throughout with n o significant stenosis to explain current clinical symptoms. Head CTA 03/28/18 Signed Impressions: CONCLUSION: Negative CTA Head. Head CT 03/28/18 Signed Impressions: CONCLUSION: No acute intracranial findings. Patient is very unsteady on her feet, almost falling backwards when walking backwards. I believe she would benefit from observation. Diagnosis Primary Impression: Dizziness Additional Impression: Unsteady gait Patient Instructions: General Instructions Additional Instructions: Follow-up with your doctors. Increase your fluid intake. Return to the ED as needed for any worsening symptoms. Condition: Stable Jessy Moon MD Mar 28, 2018 15:17
--- NOTE | 2018-03-28 16:32 | HHI.HP ---
HPI Service [facility] Hospitalists Primary Care Physician Dany Gallardo MD Admission Diagnosis Chief Complaint: dizziness Travel History International Travel<30 Days: No Contact w/Intl Traveler <30 Da: No Traveled to Known Affected Are: No History of Present Illness Patient is a pleasant 83-year-old female with multiple medical problems. Patient has had prior hospitalizations due to dizziness. Patient's most recent hospitalization for dizziness at [place] was 09/02 - 09/06/17. During that hospitalization patient underwent extensive workup for dizziness. Carotid ultrasound was negative. Orthostatic vital signs were negative. There were no acute abnormalities noted on the patient's telemetry. MRI brain did reveal ventricular prominence which was noted to be stable but felt to be out of proportion to the degree of cortical atrophy. Consultation was obtained with neurosurgery. Neurosurgery discussed the case with patient and family. At that time they were not interested in pursuing diagnosis of NPH. During patient's August 2017 hospitalization patient was diagnosed with Takotsubo cardiomyopathy. Echocardiogram showed ejection fraction 25- 30% with diffuse global hypokinesis. Patient was started on lisinopril by cardiology. Patient had an outpatient echocardiogram which showed recovery of the patient's ejection fraction. Patient is on Coumadin anticoagulation for chronic atrial fibrillation. I discussed the case at length with the patient's son, Mr. Jozef Daniels. Mr. Daniels is concerned that his mother's dizziness has been worse in the last few weeks. In particular he is concerned that she might have autonomic dysfunction and is requesting an MRI of the cervical spine for evaluation. Even if MRI of the cervical spine suggests impingement of the patient's nerve roots, I do not feel the patient would be a good surgical candidate. Mr. Daniels agrees that she might not be a good surgical candidate, but would like to pursue workup at this time. Mr. Daniels is also quite worried that his mother's heart condition may have once again worsened and requests repeat echocardiogram. Patient does not voice complaint of worsening shortness of breath or lower extremity edema. Patient does not voice complaint of chest pain or palpitations at this time. Patient will be admitted to [facility] for further evaluation and treatment. Review of Systems Constitutional: DENIES: Diaphoretic episodes, Fatigue, Fever, Weight gain, Weight loss, Chills, Dizziness, Change in appetite, Night Sweats Endocrine: DENIES: Heat/cold intolerance, Polydipsia, Polyuria, Polyphagia Eyes: DENIES: Blurred vision, Diplopia, Eye inflammation, Eye pain, Vision loss , Photosensitivity, Double Vision Ears, nose, mouth, throat: DENIES: Tinnitus, Hearing loss, Vertigo, Nasal discharge, Oral lesions, Throat pain, Hoarseness, Ear Pain, Running Nose, Epistaxis, Sinus Pain, Toothache, Odynophagia Respiratory: DENIES: Apneas, Cough, Snoring, Wheezing, Hemoptysis, Sputum production, Shortness of breath Cardiovascular: DENIES: Chest pain, Palpitations, Syncope, Dyspnea on Exertion , PND, Lower Extremity Edema, Orthopnea, Claudication Gastrointestinal: DENIES: Abdominal pain, Black stools, Bloody stools, BRB per rectum, Constipation, Diarrhea, GERD, Nausea, Reflux, Vomiting, Difficulty Swallowing, Anorexia Genitourinary: DENIES: Urinary frequency, Urinary incontinence, Urgency, Hematuria, Dysuria, Nocturia Musculoskeletal: DENIES: Joint pain, Muscle aches, Stiffness, Joint Swelling, Back pain, Neck pain Integumentary: DENIES: Abnormal pigmentation, Pruritus, Rash, Nail changes, Breast masses, Breast skin changes, Nipple discharge Hematologic/lymphatic: DENIES: Bruising, Lymphadenopathy Immunologic/allergic: DENIES: Eczema, Urticaria Neurologic: DENIES: Abnormal gait, Headache, Localized weakness, Paresthesias, Seizures, Speech Problems, Tremor, Poor Balance Psychiatric: DENIES: Anxiety, Confusion, Mood changes, Depression, Hallucinations, Agitation, Suicidal Ideation, Homicidal Ideation, Delusions, History of Bipolar Past Family Social History Past Medical History 1. Atrial fibrillation status post ablation. 2. BCC, excised from pt's face 3. GERD 4. Degenerative joint disease 5. Hypothyroidism 6. Rheumatoid arthritis 7. HTN 8. Recurrent UTIs, uses pessary 9. Chronic kidney disease stage III 10. history of low back pain Past Surgical History 1) ablation for atrial fibrillation 2) bilateral laser surgery for cataracts 3) hysterectomy 4) pelvic sling 5) teeth extractions Allergies: Coded Allergies: Sulfa (Sulfonamide Antibiotics) (Unverified Allergy, Severe, ORAL SORES, ) nitrofurantoin (Verified Allergy, Severe, Nausea/Vomiting, 03/28/18) ofloxacin (Unverified Adverse Reaction, Severe, POSSIBLE A FIB, 03/28/18) doxycycline (Unverified Adverse Reaction, Unknown, 03/28/18) INCREASED PAIN OF RHEUMATOID ARTHRITIS meperidine (Unverified Adverse Reaction, Unknown, SEVERE NAUSEA & VOMITING , 03/28/18) Family History Noncontributory Social History - No tobacco use - No alcohol use - No illicit street drugs Physical Exam Vital Signs Vital Signs Date Time Temp Pulse Resp B/P (MAP) Pulse Ox O2 Delivery O2 Flow Rate FiO2 03/28/18 12:00 62 18 156/75 (102) 97 Room Air 03/28/18 10:31 65 18 175/72 (106) 96 Room Air 03/28/18 10:01 98.5 67 18 157/70 (99) 98 Physical Exam GENERAL: This is a well-nourished, well-developed patient, in no apparent distress. SKIN: No rashes, ecchymoses or lesions. Cool and dry. HEAD: Atraumatic. Normocephalic. No temporal or scalp tenderness. EYES: Pupils equal round and reactive. Extraocular motions intact. No scleral icterus. No injection or drainage. ENT: Nose without bleeding, purulent drainage or septal hematoma. Throat without erythema, tonsillar hypertrophy or exudate. Uvula midline. Airway patent. NECK: Trachea midline. No JVD or lymphadenopathy. Supple, nontender, no meningeal signs. CARDIOVASCULAR: Regular rate and rhythm without murmurs, gallops, or rubs. RESPIRATORY: Clear to auscultation. Breath sounds equal bilaterally. No wheezes , rales, or rhonchi. GASTROINTESTINAL: Abdomen soft, non-tender, nondistended. No hepato-splenomegaly , or palpable masses. No guarding. MUSCULOSKELETAL: Extremities without clubbing, cyanosis, or edema. No joint tenderness, effusion, or edema noted. No calf tenderness. Negative Homans sign bilaterally. NEUROLOGICAL: Awake and alert. Cranial nerves II through XII intact. Motor and sensory grossly within normal limits. Five out of 5 muscle strength in all muscle groups. Normal speech. Laboratory Laboratory Tests Test 03/28/18 11:45 03/28/18 11:50 White Blood Count 6.5 Red Blood Count 4.43 Hemoglobin 12.6 Hematocrit 38.0 Mean Corpuscular Volume 85.7 Mean Corpuscular Hemoglobin 28.4 Mean Corpuscular Hemoglobin Concent 33.1 Red Cell Distribution Width 15.3 Platelet Count 155 Mean Platelet Volume 8.0 Neutrophils (%) (Auto) 74.2 Lymphocytes (%) (Auto) 14.2 Monocytes (%) (Auto) 9.4 Eosinophils (%) (Auto) 1.6 Basophils (%) (Auto) 0.6 Neutrophils # (Auto) 4.8 Lymphocytes # (Auto) 0.9 Monocytes # (Auto) 0.6 Eosinophils # (Auto) 0.1 Basophils # (Auto) 0.0 CBC Comment DIFF FINAL Differential Comment Blood Urea Nitrogen 14 Creatinine 0.78 Random Glucose 82 Total Protein 7.3 Albumin 3.2 Calcium Level 9.1 Alkaline Phosphatase 97 Aspartate Amino Transf (AST/SGOT) 69 Alanine Aminotransferase (ALT/SGPT) 57 Total Bilirubin 0.7 Sodium Level 139 Potassium Level 5.7 Chloride Level 105 Carbon Dioxide Level 26.6 Anion Gap 7 Estimat Glomerular Filtration Rate 70 Troponin I LESS THAN 0.02 Urine Color YELLOW Urine Turbidity CLEAR Urine pH 7.5 Urine Specific Hazel 1.004 Urine Protein NEG Urine Glucose (UA) NEG Urine Ketones NEG Urine Occult Blood NEG Urine Nitrite NEG Urine Bilirubin NEG Urine Urobilinogen LESS THAN 2.0 Urine Leukocyte Esterase NEG Urine WBC LESS THAN 1 Microscopic Urinalysis Comment CATH-CULT NOT IND Result Diagram: 03/28/18 1145 03/28/18 1145 Imaging Last Impressions Neck CTA 03/28/18 0000 Signed Impressions: CONCLUSION: 1. Some calcification in the arch. Significant tortuosity of the left internal . 2. However, the arch vessels and cervical vessels are patent throughout with n o significant stenosis to explain current clinical symptoms. Head CTA 03/28/18 0000 Signed Impressions: CONCLUSION: Negative CTA Head. Head CT 03/28/18 0000 Signed Impressions: CONCLUSION: No acute intracranial findings. Caprini VTE Risk Assessment Caprini VTE Risk Assessment: Mod/High Risk (score >= 2) Caprini Risk Assessment Model Point Value = 1 Point Value = 2 Point Value = 3 Point Value = 5 Age 41-60 Minor surgery BMI > 25 kg/m2 Swollen legs Varicose veins or History of unexplained or recurrent spontaneous Oral contraceptives or hormone replacement Sepsis (< 1 month) Serious lung disease, including pneumonia (< 1 month) Abnormal pulmonary function Acute myocardial infarction Congestive heart failure (< 1 month) History of inflammatory bowel disease Medical patient at bed rest Age 61-74 Arthroscopic surgery Major open surgery (> 45 min) Laparoscopic surgery (> 45 min) Malignancy Confined to bed (> 72 hours) Immobilizing plaster cast Central venous access Age >= 75 History of VTE Family history of VTE Factor V Leiden Prothrombin [id number] Lupus anticoagulant Anticardiolipin antibodies Elevated serum homocysteine Heparin-induced thrombocytopenia Other congenital or acquired thrombophilia Stroke (< 1 month) Elective arthroplasty Hip, pelvis, or leg fracture Acute spinal cord injury (< 1 month) Prophylaxis Regimen Total Risk Factor Score Risk Level Prophylaxis Regimen 0-1 Low Early ambulation 2 Moderate Order ONE of the following: *Sequential Compression Device (SCD) *Heparin 5000 units SQ BID 3-4 Higher Order ONE of the following medications: *Heparin 5000 units SQ TID *Enoxaparin/Lovenox 40 mg SQ daily (WT < 150 kg, CrCl > 30 mL/min) *Enoxaparin/Lovenox 30 mg SQ daily (WT < 150 kg, CrCl > 10-29 mL/min) *Enoxaparin/Lovenox 30 mg SQ BID (WT < 150 kg, CrCl > 30 mL/min) AND/OR *Sequential Compression Device (SCD) 5 or more Highest Order ONE of the following medications: *Heparin 5000 units SQ TID (Preferred with Epidurals) *Enoxaparin/Lovenox 40 mg SQ daily (WT < 150 kg, CrCl > 30 mL/min) *Enoxaparin/Lovenox 30 mg SQ daily (WT < 150 kg, CrCl > 10-29 mL/min) *Enoxaparin/Lovenox 30 mg SQ BID (WT < 150 kg, CrCl > 30 mL/min) AND *Sequential Compression Device (SCD) Assessment and Plan Problem List: (1) Dizziness ICD Codes: R42 - Dizziness and giddiness Status: Acute Plan: Patient is a pleasant 83-year-old female with multiple medical problems. Patient has had prior hospitalizations due to dizziness. Patient's most recent hospitalization for dizziness at [place] was 09/02 - 09/06/17. During that hospitalization patient underwent extensive workup for dizziness. Carotid ultrasound was negative. Orthostatic vital signs were negative. There were no acute abnormalities noted on the patient's telemetry. MRI brain did reveal ventricular prominence which was noted to be stable but felt to be out of proportion to the degree of cortical atrophy. Consultation was obtained with neurosurgery. Neurosurgery discussed the case with patient and family. At that time they were not interested in pursuing diagnosis of NPH. During patient's August 2017 hospitalization patient was diagnosed with Takotsubo cardiomyopathy. Echocardiogram showed ejection fraction 25- 30% with diffuse global hypokinesis. Patient was started on lisinopril by cardiology. Patient had an outpatient echocardiogram which showed recovery of the patient's ejection fraction. Patient is on Coumadin anticoagulation for chronic atrial fibrillation. I discussed the case at length with the patient's son, Mr. Jozef Daniels. Mr. Daniels is concerned that his mother's dizziness has been worse in the last few weeks. In particular he is concerned that she might have autonomic dysfunction and is requesting an MRI of the cervical spine for evaluation. Even if MRI of the cervical spine suggests impingement of the patient's nerve roots, I do not feel the patient would be a good surgical candidate. Mr. Daniels agrees that she might not be a good surgical candidate, but would like to pursue workup at this time. Mr. Daniels is also quite worried that his mother's heart condition may have once again worsened and requests repeat echocardiogram. Patient does not voice complaint of worsening shortness of breath or lower extremity edema. Patient does not voice complaint of chest pain or palpitations at this time. - Observe on telemetry - Obtain MRI neck to rule out autonomic dysfunction. Requested by patient's son. - History of takotsubo cardiomyopathy during August 2017 hospitalization with [facility] of ejection fraction on outpatient echocardiogram. - Repeat echocardiogram - Request evaluation by physical therapy - I suspect that the patient's equilibrium difficulties is due to concurrent, chronic medical changes and advanced age. - Patient would be a poor surgical candidate. -Consider discharge to SNF ([facility]) for strengthening and gait training. -DVT prophylaxis -Supportive care (2) Chronic atrial fibrillation ICD Codes: I48.2 - Chronic atrial fibrillation Status: Chronic Plan: - h/o afib ablation. - amiodarone - INR 3.4 (6/4) - hold coumadin (3) Hypothyroidism ICD Codes: E03.9 - Hypothyroidism Status: Chronic Plan: - continue levothyroxine (4) Rheumatoid arthritis ICD Codes: M06.9 - Rheumatoid arthritis Status: Chronic Plan: - continue arava Problem Qualifiers (1) Hypothyroidism: Qualified Codes: E03.9 - Hypothyroidism, unspecified (2) Rheumatoid arthritis: Cleveland Li DO Mar 28, 2018 16:32
[2018-03-28] MEDS ORDERED: ALPRAZolam 0.25 MG TAB PO PRN (16:45)
[2018-03-28] MEDS ORDERED: NALOXONE HCL 0.4 MG/ML AMP IV PUSH PRN (16:45)
[2018-03-28] MEDS ORDERED: ACETAMINOPHEN 325 MG TAB PO PRN (16:45)
[2018-03-28] MEDS ORDERED: MAGNESIUM HYDROXIDE SUSP 30 ML CUP PO PRN (16:45)
[2018-03-28] MEDS ORDERED: cloNIDine HCL 0.2 MG TAB PO PRN (16:45)
[2018-03-28] MEDS ORDERED: SODIUM CHLORIDE 0.9% FLUSH 10 ML FLUSH IV FLUSH PRN (16:45)
[2018-03-28 17:12] LABS: BICARBONATE 26.1 MEQ/L (21.0-32.0); CALCIUM 8.4 MG/DL (8.5-10.1); CREATININE 0.78 MG/DL (0.50-1.00)
[2018-03-28] MEDS ORDERED: LEFL1TAB3 PO (17:42)
[2018-03-28] MEDS ORDERED: DOXE50CA3 PO (17:42)
[2018-03-28] MEDS ORDERED: PROP20TA3 PO (17:42)
[2018-03-28] MEDS ORDERED: SACC1CAP3 PO (17:42)
[2018-03-28] MEDS ORDERED: WARFARIN SOD 3 MG TAB PO SCH (18:00)
[2018-03-28] MEDS ORDERED: SODIUM POLYSTYRENE SULFONATE SUSP 15 GM/60 ML CUP PO ONE (18:00)
[2018-03-28] MEDS ORDERED: ONDANSETRON ODT 4 MG TAB PO PRN (18:15)
[2018-03-28] MEDS: ATORVASTATIN 20 MG TAB PO SCH (18:20)
[2018-03-28 19:56] LABS: INTERNATIONAL NORMALIZED RATIO 3.4 RATIO; PROTHROMBIN TIME - PATIENT 34.4 SEC (9.8-11.6)
[2018-03-28] MEDS: DOXEPIN HCL 50 MG CAP PO SCH (22:16)
[2018-03-28] MEDS: SODIUM CHLORIDE 0.9% FLUSH 10 ML FLUSH IV FLUSH SCH (22:16)
[2018-03-29] VITALS (9 sets, daily range): BP systolic 118–180; BP diastolic 54–77; PULSE 56–72; RESP 16–20; TEMP 95.5–98.1; O2SAT 96–99
[2018-03-29 06:51] LABS: AUTOMATED NEUTROPHIL # 2.5 TH/MM3 (1.8-7.7); BASOPHIL % 0.6 % (0.0-2.0); EOSINOPHIL # 0.1 TH/MM3 (0-0.4); EOSINOPHIL % 3.8 % (0.0-4.0); HEMATOCRIT 33.5 % (35.0-46.0); LYMPH % 19.9 % (9.0-44.0); LYMPHOCYTE # 0.8 TH/MM3 (1.0-4.8); MEAN CELL VOLUME 86.3 FL (80.0-100.0); MEAN CORPUSCULAR HEMOGLOBIN 28.4 PG (27.0-34.0); MEAN CORPUSCULAR HGB CONC 32.9 % (32.0-36.0); MEAN PLATELET VOLUME 8.2 FL (7.0-11.0); MONO % 12.4 % (0.0-8.0); MONOCYTE # 0.5 TH/MM3 (0-0.9); NEUT % 63.3 % (16.0-70.0); PLATELET COUNT 133 TH/MM3 (150-450); RED BLOOD COUNT 3.88 MIL/MM3 (4.00-5.30); RED CELL DISTRIBUTION WIDTH 15.1 % (11.6-17.2)
[2018-03-29] MEDS ORDERED: LORazepam 0.5 MG TAB PO ONE (07:00)
[2018-03-29 07:06] LABS: INTERNATIONAL NORMALIZED RATIO 3.5 RATIO; PROTHROMBIN TIME - PATIENT 35.7 SEC (9.8-11.6)
[2018-03-29 07:11] LABS: BICARBONATE 27.4 MEQ/L (21.0-32.0); CALCIUM 8.8 MG/DL (8.5-10.1); CREATININE 0.74 MG/DL (0.50-1.00)
[2018-03-29] MEDS: SODIUM CHLORIDE 0.9% FLUSH 10 ML FLUSH IV FLUSH SCH ×2 (08:28→20:46)
[2018-03-29] MEDS: AMIODARONE 200 MG TAB PO SCH (08:29)
[2018-03-29] MEDS: LEVOTHYROXINE SODIUM 50 MCG TAB PO SCH (08:29)
[2018-03-29] MEDS: ESCITALOPRAM OXALATE 10 MG TAB PO SCH (08:29)
[2018-03-29] MEDS: ATORVASTATIN 20 MG TAB PO SCH (08:29)
[2018-03-29] MEDS: LEFLUNOMIDE 20 MG TAB PO SCH (08:29)
[2018-03-29] MEDS ORDERED: ASPIRIN 81 MG CHEW TAB CHEW SCH (09:00)
--- NOTE | 2018-03-29 09:53 | RADRPT ---
EXAM DATE: 03/29/2018 9:34 AM EDT AGE/SEX: 83 years / Female INDICATIONS: Radiculopathy. CLINICAL DATA: This is the patient's initial encounter. Patient reports that signs and symptoms have been present for 1 day and indicates a pain score of 0/10. MEDICAL/SURGICAL HISTORY: Hypertension. Rheumatoid arthritis. Atrial fibrillation. Hysterecto my. Appendectomy. COMPARISON: [facility], CT CERVICAL SPINE W/O CONTRAST, 02/19/2013. . TECHNIQUE: Multiplanar, multisequence MRI examination of the cervical spine was performed without co ntrast. FINDINGS: Vertebrae: Bone marrow signal is within normal limits. No acute abnormality. Alignment: There is 2 mm of anterolisthesis of C4 on C5. Cord: Normal signal. Post Fossa: The cerebellar tonsils are normal in position. The craniocervical junction and C1-C2 level demonstrate no acute abnormality. C2-C3: There is mild bilateral facet arthrosis. No significant disc herniation, canal stenosis, or n eural foraminal stenosis is present. C3-C4: There is fusion of the left facet joints. No disc herniation, canal stenosis, or neural ayala inal stenosis is present. C4-C5: There is left facet arthrosis. Minimal central disc bulge is present. No spinal canal stenosi s or neural foraminal stenosis is present. C5-C6: Decreased disc height with posterior disc osteophyte complex diffusely. No significant spinal canal stenosis or neural foraminal stenosis is present. C6-C7: Decreased disc height with diffuse posterior disc osteophyte complex and right uncovertebral osteophyte. There is narrowing of the right neural foramen. No canal stenosis or left neural foramina l stenosis is present. C7-T1: No disc herniation, canal stenosis, or neural foraminal stenosis. Other: The visualized surrounding structures demonstrate no acute abnormality. CONCLUSION: 1. Stable examination of the cervical spine with degenerative disc disease at C5-C6 and C6-C7. There is moderate severity narrowing of the right neural foramen at C6-C7. 2. Stable minimal anterolisthesis of C4 on C5. Electronically signed by: Diego Johnston MD 03/29/2018 9:52 AM EDT
--- NOTE | 2018-03-29 12:48 | HHI.PR ---
Subjective Remarks Pt c/o continued episodes of dizziness. Pt observed ambulating to the bathroom with the help of nursing/aid. Pt appeared to have a steady gait without device with nursing/aid alongside as standby assist only. Objective Vitals Vital Signs Date Time Temp Pulse Resp B/P (MAP) Pulse Ox O2 Delivery O2 Flow Rate FiO2 03/29/18 08:52 95.5 72 20 180/77 (111) 03/29/18 08:13 59 03/29/18 03:27 98.1 56 17 122/57 (78) 96 03/29/18 00:39 97.9 62 16 118/54 (75) 96 03/28/18 23:00 54 03/28/18 20:14 97.8 63 17 113/55 (74) 95 03/28/18 17:20 97.0 69 16 170/82 (111) 97 03/28/18 17:14 68 18 157/65 (95) 98 03/29/18 03/29/18 03/30/18 15:00 23:00 07:00 # Voids 1 Result Diagram: 03/29/18 0540 03/29/18 0540 Imaging Last Impressions Cervical Spine MRI 03/29/18 0000 Signed Impressions: CONCLUSION: 1. Stable examination of the cervical spine with degenerative disc disease at C5-C6 and C6-C7. There is moderate severity narrowing of the right neural ayala en at C6-C7. 2. Stable minimal anterolisthesis of C4 on C5. Neck CTA 03/28/18 0000 Signed Impressions: CONCLUSION: 1. Some calcification in the arch. Significant tortuosity of the left internal . 2. However, the arch vessels and cervical vessels are patent throughout with n o significant stenosis to explain current clinical symptoms. Head CTA 03/28/18 0000 Signed Impressions: CONCLUSION: Negative CTA Head. Head CT 03/28/18 0000 Signed Impressions: CONCLUSION: No acute intracranial findings. Objective Remarks GENERAL: This is a well-nourished, well-developed patient, in no apparent distress. CARDIOVASCULAR: Regular rate and rhythm without murmurs, gallops, or rubs. RESPIRATORY: Clear to auscultation. Breath sounds equal bilaterally. No wheezes , rales, or rhonchi. GASTROINTESTINAL: Abdomen soft, non-tender, nondistended. Normal active bowel sounds MUSCULOSKELETAL: Extremities without clubbing, cyanosis, or edema. NEURO: Alert & Oriented x4 to person, place, time, situation. Moves all ext x4 A/P Problem List: (1) Dizziness ICD Codes: R42 - Dizziness and giddiness Status: Acute Plan: Patient is a pleasant 83-year-old female with multiple medical problems. Patient has had prior hospitalizations due to dizziness. Patient's most recent hospitalization for dizziness at [place] was 09/02 - 09/06/17. During that hospitalization patient underwent extensive workup for dizziness. Carotid ultrasound was negative. Orthostatic vital signs were negative. There were no acute abnormalities noted on the patient's telemetry. MRI brain did reveal ventricular prominence which was noted to be stable but felt to be out of proportion to the degree of cortical atrophy. Consultation was obtained with neurosurgery. Neurosurgery discussed the case with patient and family. At that time they were not interested in pursuing diagnosis of NPH. During patient's August 2017 hospitalization patient was diagnosed with Takotsubo cardiomyopathy. Echocardiogram showed ejection fraction 25- 30% with diffuse global hypokinesis. Patient was started on lisinopril by cardiology. Patient had an outpatient echocardiogram which showed recovery of the patient's ejection fraction. Patient is on Coumadin anticoagulation for chronic atrial fibrillation. I discussed the case at length with the patient's son, Mr. Jozef Daniels. Mr. Daniels is concerned that his mother's dizziness has been worse in the last few weeks. In particular he is concerned that she might have autonomic dysfunction and is requesting an MRI of the cervical spine for evaluation. Even if MRI of the cervical spine suggests impingement of the patient's nerve roots, I do not feel the patient would be a good surgical candidate. Mr. Daniels agrees that she might not be a good surgical candidate, but would like to pursue workup at this time. Mr. Daniels is also quite worried that his mother's heart condition may have once again worsened and requests repeat echocardiogram. Patient does not voice complaint of worsening shortness of breath or lower extremity edema. Patient does not voice complaint of chest pain or palpitations at this time. - Telemetry: NSR - MRI neck (03/28/18) 1. Stable examination of the cervical spine with degenerative disc disease at C5-C6 and C6-C7. There is moderate severity narrowing of the right neural foramen at C6-C7. 2. Stable minimal anterolisthesis of C4 on C5. - Case d/w Dr. Chavez (03/29/18). He will consult. Seems unlikely at this point that neurosurgical procedure will benefit pt's symptoms. - Pt/son indicated NOT interested previously in pursing w/u for NPH. - History of takotsubo cardiomyopathy during August 2017 hospitalization with [facility] of ejection fraction on outpatient echocardiogram. - Pt's son concerned that EF may have again deteriorated, although NO c/o sob, cp, or edema - Echocardiogram (03/29/18) - The left ventricular systolic function is normal with an estimated ejection fraction in the range of 60-65%. - [id number] mitral valve regurgitation. - Moderate aortic valve regurgitation. - There is mild tricuspid valve regurgitation. - Pt seen by Physical Therapy (03/29) - Pt recommended evaluation of pt's vertebral arteries and consideration of Bar maneuver - Pt already had CTA of the neck (03/28). NO stenotic lesions were identified in the vertebral arteries. - previous MRI brain Fall 2016 showed prominent ventricles, but no other particular acute findings. - Patient would be a poor surgical candidate. -Consider discharge to SNF ([facility]ail facility) for strengthening and gait training. - Pt/son seem to be against SNF at this time. - Pt's son requesting outpt PT at pt's [facility] with non-[facility] affiliated PT, [place]. [facility] Case Management has been contacted (03/29/18) to see if this is a possibility. - I updated the pt's son Mr. Jozef Min extensively at the bedside (03/29/18). All questions were answered to the best of my ability. Mr. Min seemed quite frustrated. I offered him the possibility of a different attending physician. He declined and states that his frustration was a lack of consensus between different doctors as to the etiology of his mother dizziness. - I suspect that the patient's equilibrium difficulties is due to concurrent, chronic medical changes and advanced age. -DVT prophylaxis -Supportive care (2) Chronic atrial fibrillation ICD Codes: I48.2 - Chronic atrial fibrillation Status: Chronic Plan: - h/o afib ablation. - amiodarone - INR 3.4 (03/28) - hold coumadin (3) Hypothyroidism ICD Codes: E03.9 - Hypothyroidism Status: Chronic Plan: - continue levothyroxine (4) Rheumatoid arthritis ICD Codes: M06.9 - Rheumatoid arthritis Status: Chronic Plan: - continue arava Problem Qualifiers (1) Hypothyroidism: Qualified Codes: E03.9 - Hypothyroidism, unspecified (2) Rheumatoid arthritis: Cleveland Li DO Mar 29, 2018 12:48
[2018-03-29] MEDS ORDERED: CEPH-460 PO (13:20)
[2018-03-29] MEDS ORDERED: CEPHALEXIN MONOHYDRATE 500 MG CAP PO SCH (14:00)
--- NOTE | 2018-03-29 15:27 | EKG ---
Date Performed: 03/28/2018 Time Performed: 15:46:56 PTAGE: 83 years EKG: Sinus rhythm WITH FIRST DEGREE AV BLOCK NONSPECIFIC T-WAVE ABNORMALITY ABNORMAL ECG INTERPRETATION BASED ON A DEF STACY AGE OF 40 YEARS NO PREVIOUS TRACING DOCTOR: Kami Blackwell Interpretating Date/Time 03/29/2018 15:25:39
--- NOTE | 2018-03-29 16:07 | EKG ---
Date Performed: 03/28/2018 Time Performed: 11:54:05 PTAGE: 83 years EKG: Sinus rhythm WITH FIRST DEGREE AV BLOCK ABNORMAL ECG Since the PREVIOUS TRACING , no significant change noted PREVIOUS TRACIN09/05/2017 04.23 DOCTOR: Kami Blackwell Interpretating Date/Time 03/29/2018 16:06:00
--- NOTE | 2018-03-29 18:17 | ECHRPT ---
Indication: HEART FAILURE CONCLUSIONS The left ventricular systolic function is normal with an estimated ejection fraction in the range of 60-65%. Hbcop-dr-lndj mitral valve regurgitation. Moderate aortic valve regurgitation. There is mild tricuspid valve regurgitation. BP: 180 / 77 HR: 72 Rhythm: Sinus MEASUREMENTS (Male / Female) Normal Values Technical Quality:Fair 2D ECHO LV Diastolic Diameter PLAX 4.3 cm 4.2 - 5.9 / 3.9 - 5.3 cm LV Systolic Diameter PLAX 2.8 cm IVS Diastolic Thickness 0.9 cm 0.6 - 1.0 / 0.6 - 0.9 cm LVPW Diastolic Thickness 0.9 cm 0.6 - 1.0 / 0.6 - 0.9 cm LV Relative Wall Thickness 0.4 RV Internal Dim ED PLAX 2.8 cm LVOT Diameter 2.1 cm Aortic Root Diameter 3.4 cm LA Systolic Diameter LX 2.9 cm 3.0 - 4.0 / 2.7 - 3.8 cm M-MODE AV Cusp Separation MM 1.9 cm DOPPLER AV Peak Velocity 156.5 cm/s AV Peak Gradient 9.8 mmHg AV Mean Gradient 6.0 mmHg AV Velocity Time Integral 38.3 cm LVOT Peak Velocity 82.0 cm/s LVOT Peak Gradient 2.7 mmHg LVOT Velocity Time Integral 20.1 cm AV Area Cont Eq vti 1.8 cm AV Area Cont Eq pk 1.8 cm Mitral E Point Velocity 115.0 cm/s Mitral A Point Velocity 66.1 cm/s Mitral E to A Ratio 1.7 LV E' Lateral Velocity 6.6 cm/s Mitral E to LV E' Lateral Ratio 17.3 LV E' Septal Velocity 6.1 cm/s Mitral E to LV E' Septal Ratio 18.7 TR Peak Velocity 268.5 cm/s TR Peak Gradient 28.8 mmHg Right Atrial Pressure 10.0 mmHg Pulmonary Artery Systolic Pressu 38.8 mmHg Right Ventricular Systolic Press 38.8 mmHg PV Peak Velocity 57.9 cm/s PV Peak Gradient 1.3 mmHg FINDINGS LEFT VENTRICLE Normal left ventricular size. Wall thickness is normal. The left ventricular systolic function is normal with an estimated ejection fraction in the range of 60-65%. RIGHT VENTRICLE Normal right ventricular size and systolic function. LEFT ATRIUM The left atrial size is normal. RIGHT ATRIUM The right atrial size is normal. ATRIAL SEPTUM No atrial level shunt is demonstrated by color flow Doppler interrogation. AORTA The aortic root and proximal ascending aorta are normal in size on limited imaging. MITRAL VALVE Structurally normal mitral valve. [id number] mitral valve regurgitation. AORTIC VALVE Aortic valve sclerosis is present. Moderate aortic valve regurgitation. No aortic valve stenosis. TRICUSPID VALVE Grossly normal There is mild tricuspid valve regurgitation. The estimated pulmonary arterial pressure is 38.8 mmHg. No tricuspid valve stenosis. PULMONARY VALVE Trivial pulmonary valve regurgitation. VESSELS The inferior vena cava is normal in size. PERICARDIUM No pericardial effusion. Henri Davis DO (Electronically Signed) Final Date:29 March 2018 18:15
[2018-03-29] MEDS: DOXEPIN HCL 50 MG CAP PO SCH (20:46)
[2018-03-30] VITALS (10 sets, daily range): BP systolic 126–166; BP diastolic 61–73; PULSE 67–99; RESP 18–20; TEMP 96.4–98; O2SAT 95–98
[2018-03-30 07:29] LABS: INTERNATIONAL NORMALIZED RATIO 3.2 RATIO
[2018-03-30] MEDS: LEVOTHYROXINE SODIUM 50 MCG TAB PO SCH (07:57)
[2018-03-30] MEDS: ESCITALOPRAM OXALATE 10 MG TAB PO SCH (09:02)
[2018-03-30] MEDS: LEFLUNOMIDE 20 MG TAB PO SCH (09:02)
[2018-03-30] MEDS: ATORVASTATIN 20 MG TAB PO SCH (09:02)
[2018-03-30] MEDS: AMIODARONE 200 MG TAB PO SCH (09:03)
[2018-03-30] MEDS: SODIUM CHLORIDE 0.9% FLUSH 10 ML FLUSH IV FLUSH SCH ×2 (09:03→21:28)
--- NOTE | 2018-03-30 11:52 | PD.CONS ---
History of Present Illness Service Neurology Consult Requested By Medical Team Reason for Consult Dizziness Primary Care Physician Dany Gallardo MD History of Present Illness 83 y/o female presented to ER with complaints of dizziness. Denies room spinning, occasional dizziness with position changes. Most often feels unsteady. Tends to feel like she is going to fall to the side or backwards. No loss of consciousness. Has seen neurology, cardiology and balance specialist outpatient. Tried vestibular therapy without benefit. Has noted tremor in her left hand for the last 6-8 mos. Dizziness has been at least the last year. Sleeps well, no RBD. No change in smell. Notes constipation. has shuffling of gait. Walker at home tends to get out in front of her and she can't keep up with it. Tremor at rest in the left hand, occasional tremor with action. Mother had hx of tremor but was not diagnosed with any neurological condition. Reports orthostatic BP in the past has been unremarkable. Had hx of broken heart syndrome with cardiology but ECHO has improved from 30 to 60% (Sharron Morales) Review of Systems Constitutional: Negative except HPI Eye: Negative Except HPI ENMT: Negative except HPI Respiratory: Negative except HPI Cardiovascular: Negative except HPI Gastrointestinal: Negative except HPI Krystian/Lymph: Negative except HPI Musculoskeletal: Negative except HPI Neurologic: Negative except HPI Psychiatric: Negative except HPI All other ROS: ROS reviewed as documented in chart (Sharron Morales) Past Family Social History Allergies: Coded Allergies: Sulfa (Sulfonamide Antibiotics) (Unverified Allergy, Severe, ORAL SORES, ) nitrofurantoin (Verified Allergy, Severe, Nausea/Vomiting, 03/28/18) ofloxacin (Unverified Adverse Reaction, Severe, POSSIBLE A FIB, 03/28/18) doxycycline (Unverified Adverse Reaction, Unknown, 03/28/18) INCREASED PAIN OF RHEUMATOID ARTHRITIS meperidine (Unverified Adverse Reaction, Unknown, SEVERE NAUSEA & VOMITING , 03/28/18) Past Medical History broken heart syndrome, a-fib s/p ablation, tremor, arthritis (rheumatoid and osteo) Past Surgical History cardiac cath, cardiac ablation, cataract, low back, hyst Active Ordered Medications Current Medications Medications (Trade) Dose Ordered Sig/Lianet Route Start Time Stop Time Status Last Admin (NS Flush) 2 ml UNSCH PRN IV FLUSH 03/28/18 16:45 (NS Flush) 2 ml BID IV FLUSH 03/28/18 21:00 03/30/18 09:03 (Tylenol) 650 mg Q4H PRN PO 03/28/18 16:45 (Zofran Odt) 4 mg Q6H PRN PO 03/28/18 18:15 (Narcan Inj) 0.4 mg UNSCH PRN IV PUSH 03/28/18 16:45 (Milk Of Magnesia Liq) 30 ml Q12H PRN PO 03/28/18 16:45 (Xanax) 0.25 mg Q8H PRN PO 03/28/18 16:45 (Cordarone) 200 mg DAILY PO 03/29/18 09:00 03/30/18 09:03 (Lipitor) 20 mg DAILY PO 03/28/18 18:00 03/30/18 09:02 (SINEquan) 50 mg HS PO 03/28/18 21:00 03/29/18 20:46 (Lexapro) 10 mg DAILY PO 03/29/18 09:00 03/30/18 09:02 (Synthroid) 50 mcg DAILY@0600 PO 03/29/18 06:00 03/30/18 07:57 (Arava) 20 mg DAILY PO 03/29/18 09:00 03/30/18 09:02 (Catapres) 0.2 mg Q6H PRN PO 03/28/18 16:45 03/28/18 18:20 (Keflex) 500 mg HS PO 03/30/18 21:00 Family History mother had tremor and neck pain Social History does not smoke or drink alcohol (Sharron Morales) Exam I&O / VS 03/30/18 03/30/18 03/31/18 15:00 23:00 07:00 # Voids 1 Vital Signs Date Time Temp Pulse Resp B/P (MAP) Pulse Ox O2 Delivery O2 Flow Rate FiO2 03/30/18 08:35 67 03/30/18 07:40 97.8 74 18 166/73 (104) 96 03/30/18 04:00 97.8 75 18 139/63 (88) 96 03/30/18 00:00 98.0 71 18 151/66 (94) 95 03/29/18 20:00 97.5 71 18 166/73 (104) 98 03/29/18 17:36 58 03/29/18 16:00 95.7 64 20 146/66 (92) 97 03/29/18 13:29 65 03/29/18 12:00 95.7 67 20 128/59 (82) 99 General: Alert and Oriented, No acute distress Eye: PERRL, EOMI Respiratory: Non-labored respirations Cardiology: Normal rate Neurologic: Alert, Oriented, No focal defects, CN II-XII intact Psychiatric: Cooperative, Appropriate mood & affect Exam Comments alert and orient x 3, EOMI, good upgaze, mild facial masking with decreased blink rate, hypophonic, mild LUE rest tremor intermittent, no rigidity on the left, mild RUE rigidity, trace slowing with SANJANA/RSM R>L, unable to stand from chair with arms crossed, pushes out of chair, walks with walker, short stride, not wide based or magnetic, short stride length, turns en bloc, mild tremor with f-n-f, 1+ reflexes, (Sharron Morales) Review/Management Diagnosis/Plan: (1) Gait difficulty ICD Codes: R26.9 - Unspecified abnormalities of gait and mobility Status: Chronic Plan: Based on patient's exam, suspect underlying Parkinson's disease causing abnormality of gait will do trial of Sinemet 25/100 1/2 tab tid prior to meals, consider increasing to 1 tab with each dose in 1 week side/effects benefit of medication discussed with pt and her son monitor for improvement in gait would benefit from rehab where they can do LSVT BIG monitor for orthostasis (2) Dizziness ICD Codes: R42 - Dizziness and giddiness Status: Chronic Plan: CTA head unremarkable for VBI CTA neck unremarkable will check orthostatic BP while pt in ER no evidence of vertigo based on exam or history suspect dizziness related to unsteadiness/retropulsion from Parkinsonism (Sharron Morales) Daily Summary note-pt seen and d/w PA spoke with a son on phone and another at bedside agree with above looks like possible PD -trial of sinemet can always consider MARU scan. (Kristine Burrell MD) Sharron Morales Mar 30, 2018 11:52 Kristine Burrell MD Mar 30, 2018 13:59
[2018-03-30] MEDS: CARBIDOPA/LEVODOPA 25 MG/100 MG TAB PO SCH ×2 (12:28→17:45)
[2018-03-30] MEDS ORDERED: CARBIDOPA/LEVODOPA 25 MG/100 MG TAB PO SCH (14:00)
--- NOTE | 2018-03-30 15:56 | HHI.PR ---
Subjective Remarks No new complaints. Objective Vitals Vital Signs Date Time Temp Pulse Resp B/P (MAP) Pulse Ox O2 Delivery O2 Flow Rate FiO2 03/30/18 12:00 96.4 78 20 140/67 (91) 97 160/72 (101) 129/67 (87) 03/30/18 11:09 99 03/30/18 08:35 67 03/30/18 07:40 97.8 74 18 166/73 (104) 96 03/30/18 04:00 97.8 75 18 139/63 (88) 96 03/30/18 00:00 98.0 71 18 151/66 (94) 95 03/29/18 20:00 97.5 71 18 166/73 (104) 98 03/29/18 17:36 58 03/29/18 16:00 95.7 64 20 146/66 (92) 97 03/30/18 03/30/18 03/31/18 15:00 23:00 07:00 # Voids 1 Result Diagram: 03/29/18 0540 03/29/18 0540 Imaging Last Impressions Cervical Spine MRI 03/29/18 0000 Signed Impressions: CONCLUSION: 1. Stable examination of the cervical spine with degenerative disc disease at C5-C6 and C6-C7. There is moderate severity narrowing of the right neural ayala en at C6-C7. 2. Stable minimal anterolisthesis of C4 on C5. Neck CTA 03/28/18 0000 Signed Impressions: CONCLUSION: 1. Some calcification in the arch. Significant tortuosity of the left internal . 2. However, the arch vessels and cervical vessels are patent throughout with n o significant stenosis to explain current clinical symptoms. Head CTA 03/28/18 0000 Signed Impressions: CONCLUSION: Negative CTA Head. Head CT 03/28/18 0000 Signed Impressions: CONCLUSION: No acute intracranial findings. Objective Remarks GENERAL: This is a well-nourished, well-developed patient, in no apparent distress. CARDIOVASCULAR: Regular rate and rhythm without murmurs, gallops, or rubs. RESPIRATORY: Clear to auscultation. Breath sounds equal bilaterally. No wheezes , rales, or rhonchi. GASTROINTESTINAL: Abdomen soft, non-tender, nondistended. Normal active bowel sounds MUSCULOSKELETAL: Extremities without clubbing, cyanosis, or edema. NEURO: Alert & Oriented x4 to person, place, time, situation. Moves all ext x4 A/P Problem List: (1) Dizziness ICD Codes: R42 - Dizziness and giddiness Status: Chronic Plan: Patient is a pleasant 83-year-old female with multiple medical problems. Patient has had prior hospitalizations due to dizziness. Patient's most recent hospitalization for dizziness at [place] was 09/02 - 09/06/17. During that hospitalization patient underwent extensive workup for dizziness. Carotid ultrasound was negative. Orthostatic vital signs were negative. There were no acute abnormalities noted on the patient's telemetry. MRI brain did reveal ventricular prominence which was noted to be stable but felt to be out of proportion to the degree of cortical atrophy. Consultation was obtained with neurosurgery. Neurosurgery discussed the case with patient and family. At that time they were not interested in pursuing diagnosis of NPH. During patient's August 2017 hospitalization patient was diagnosed with Takotsubo cardiomyopathy. Echocardiogram showed ejection fraction 25- 30% with diffuse global hypokinesis. Patient was started on lisinopril by cardiology. Patient had an outpatient echocardiogram which showed recovery of the patient's ejection fraction. Patient is on Coumadin anticoagulation for chronic atrial fibrillation. I discussed the case at length with the patient's son, Mr. Jozef Daniels. Mr. Daniels is concerned that his mother's dizziness has been worse in the last few weeks. In particular he is concerned that she might have autonomic dysfunction and is requesting an MRI of the cervical spine for evaluation. Even if MRI of the cervical spine suggests impingement of the patient's nerve roots, I do not feel the patient would be a good surgical candidate. Mr. Daniels agrees that she might not be a good surgical candidate, but would like to pursue workup at this time. Mr. Daniels is also quite worried that his mother's heart condition may have once again worsened and requests repeat echocardiogram. Patient does not voice complaint of worsening shortness of breath or lower extremity edema. Patient does not voice complaint of chest pain or palpitations at this time. - Telemetry: NSR - MRI neck (03/28/18) 1. Stable examination of the cervical spine with degenerative disc disease at C5-C6 and C6-C7. There is moderate severity narrowing of the right neural foramen at C6-C7. 2. Stable minimal anterolisthesis of C4 on C5. - Case d/w Dr. Chavez (03/29/18). He will consult. Seems unlikely at this point that neurosurgical procedure will benefit pt's symptoms. - Pt/son indicated NOT interested previously in pursing w/u for NPH. - History of takotsubo cardiomyopathy during August 2017 hospitalization with shinto of ejection fraction on outpatient echocardiogram. - Pt's son concerned that EF may have again deteriorated, although NO c/o sob, cp, or edema - Echocardiogram (03/29/18) - The left ventricular systolic function is normal with an estimated ejection fraction in the range of 60-65%. - [id number] mitral valve regurgitation. - Moderate aortic valve regurgitation. - There is mild tricuspid valve regurgitation. - Pt seen by Physical Therapy (03/29) - Pt recommended evaluation of pt's vertebral arteries and consideration of Bar maneuver - Pt already had CTA of the neck (03/28). NO stenotic lesions were identified in the vertebral arteries. - previous MRI brain Fall 2016 showed prominent ventricles, but no other particular acute findings. - Patient would be a poor surgical candidate. -Consider discharge to SNF ([facility] facility) for strengthening and gait training. - Pt/son seem to be against SNF at this time. - Pt's son requesting outpt PT at [facility]'s [facility] with [facility] Case Management has been contacted (03/29/18) to see if this is a possibility. - case d/w Neurology. - Possible Parkinson's disorder - start sinemet. (2) Chronic atrial fibrillation ICD Codes: I48.2 - Chronic atrial fibrillation Status: Chronic Plan: - h/o afib ablation. - amiodarone - INR 3.4 (03/28) - hold coumadin (3) Hypothyroidism ICD Codes: E03.9 - Hypothyroidism Status: Chronic Plan: - continue levothyroxine (4) Rheumatoid arthritis ICD Codes: M06.9 - Rheumatoid arthritis Status: Chronic Plan: - continue arava Problem Qualifiers (1) Hypothyroidism: Qualified Codes: E03.9 - Hypothyroidism, unspecified (2) Rheumatoid arthritis: Cleveland Li DO Mar 30, 2018 15:56
[2018-03-30] MEDS ORDERED: Carbidopa-Levodopa 25-100 Mg PO (16:20)
--- NOTE | 2018-03-30 16:26 | HHI.DCPOC ---
Discharge Care Plan Diagnosis: (1) Parkinson disease (2) Gait difficulty (3) Dizziness (4) Chronic atrial fibrillation Goals to Promote Your Health * To prevent worsening of your condition and complications * To maintain your health at the optimal level Directions to Meet Your Goals Take your medications as prescribed Follow your dietary instruction Follow activity as directed Keep your appointments as scheduled Take your immunizations and boosters as scheduled If your symptoms worsen call your PCP, if no PCP go to Urgent Care Center or Emergency Room Smoking is Dangerous to Your Health. Avoid second hand smoke Call the 24-hour hour crisis hotline for domestic abuse at [facility]ed Mar 30, 2018 16:26 Cleveland Li DO Apr 03, 2018 22:58
--- NOTE | 2018-03-30 16:30 | HHI.FF ---
Face to Face Verification Diagnosis: (1) Parkinson disease (2) Gait difficulty (3) Dizziness (4) Chronic atrial fibrillation Physical Therapy Order: Evaluate and Treat Instructions: Patient's family requesting PT with [facility] Hoyt at [facility] I have seen patient Kisha Min on 03/30/18. My clinical findings support the need for the requested home health care services because: Ltd mobility - disease progression Limited ability to care for self I certify that my clinical findings support that this patient is homebound because: Unsteady gait/balance Unsafe to leave home unassisted Kamala Syed Mar 30, 2018 16:30
--- NOTE | 2018-03-30 19:08 | PD.CONS ---
History of Present Illness Service Neurosurgery Consult Requested By Dr. Li Reason for Consult Unsteady gait, cervical stenosis Primary Care Physician Dany Gallardo MD Diagnoses: History of Present Illness Ms. Min is an 83-year-old lady who according to her family has experienced dizziness and gait unsteadiness for approximately a year. She previously presented to the hospital in August 2017 with an acute episode of dizziness which caused a fall in which she struck her head. At that time the family gave a history of approximately 4 months of dizziness and gait unsteadiness. The patient has had diagnosis of atrial fibrillation since approximately 2011 and is followed by cardiology. The patient's son at bedside states that she has been using a walker since early this year. He feels that her walking deteriorated this past fall, but has been relatively stable over the past 2 or 3 months. She does have persistent episodes of dizziness. She denies headache. No definite vertigo. According to discussion with her attending physician, previous imaging studies have revealed hydrocephalus, although the patient's family has apparently not desired to proceed with any surgical intervention for possible NPH in the past. Review of Systems Constitutional: COMPLAINS OF: Fatigue, Dizziness, DENIES: Fever Eyes: DENIES: Blurred vision, Diplopia Ears, nose, mouth, throat: DENIES: Hearing loss, Vertigo Respiratory: DENIES: Shortness of breath Cardiovascular: COMPLAINS OF: Palpitations, DENIES: Chest pain Gastrointestinal: DENIES: Abdominal pain, Nausea Musculoskeletal: COMPLAINS OF: Joint pain, Back pain, DENIES: Neck pain Neurologic: COMPLAINS OF: Abnormal gait, DENIES: Headache Psychiatric: DENIES: Confusion knee pain Past Family Social History Allergies: Coded Allergies: Sulfa (Sulfonamide Antibiotics) (Unverified Allergy, Severe, ORAL SORES, ) nitrofurantoin (Verified Allergy, Severe, Nausea/Vomiting, 03/28/18) ofloxacin (Unverified Adverse Reaction, Severe, POSSIBLE A FIB, 03/28/18) doxycycline (Unverified Adverse Reaction, Unknown, 03/28/18) INCREASED PAIN OF RHEUMATOID ARTHRITIS meperidine (Unverified Adverse Reaction, Unknown, SEVERE NAUSEA & VOMITING , 03/28/18) Past Medical History Atrial fibrillation-on Coumadin Hypertension Hypothyroidism GERD Arthritis Stage III kidney disease Past Surgical History Hysterectomy Cataract surgery Cardiac ablation Reported Medications Reported Meds & Active Scripts Active [Carbidopa-Levodopa 25-100 Mg] 1 TAB Tab 0.5 Tab PO TIDAC 30 Days Aspirin 81 Mg Chew 81 Mg CHEW DAILY Xanax (Alprazolam) 0.25 Mg Tab 0.25 Mg PO Q8H PRN Escitalopram (Escitalopram Oxalate) 10 Mg Tab 10 Mg PO DAILY Atorvastatin (Atorvastatin Calcium) 20 Mg Tab 20 Mg PO DAILY Amiodarone (Amiodarone HCl) 200 Mg Tab 200 Mg PO DAILY Reported Keflex (Cephalexin) 500 Mg Cap 500 Mg PO DAILY Leflunomide 20 Mg Tab 20 Mg PO DAILY Probiotic (Saccharomyces Boulardii) 250 Mg Cap 250 Mg PO BID Propranolol (Propranolol HCl) 20 Mg Tab 20 Mg PO Q12HR Vitamin C Tr (Ascorbic Acid) 500 Mg Caper 3,000 Mg PO DAILY Coq-10 (Coenzyme Q10 (Ubidecarenone)) 50 Mg Cap 100 Mg PO DAILY Thera M Plus (Multivitamins/Minerals Therapeutic) 1 Tab 1 Tab PO DAILY Doxepin (Doxepin HCl) 50 Mg Cap 50 Mg PO Warfarin 2 Mg Tab 2 Mg PO WEDNESDAY Warfarin 3 Mg Tab 3 Mg PO SUMO Take 1 tablet (3mg) on Wednesday,Wednesday,Wednesday,,Wednesday and Wednesday Leflunomide Unknown Strength Tab 20 Mg PO DAILY Levothyroxine (Levothyroxine Sodium) 50 Mcg Tab 50 Mcg PO DAILY Vitamin D3 (Cholecalciferol) 1,000 Unit Tab 1,000 Units PO BID Family History Negative neurologic disorders Social History No history of cigarette or alcohol use Lives with her family Physical Exam Vital Signs Vital Signs Date Time Temp Pulse Resp B/P (MAP) Pulse Ox O2 Delivery O2 Flow Rate FiO2 03/30/18 16:34 68 03/30/18 16:03 97.7 71 18 139/64 (89) 98 158/71 (100) 143/69 (93) 03/30/18 12:00 96.4 78 20 140/67 (91) 97 160/72 (101) 129/67 (87) 03/30/18 11:09 99 03/30/18 08:35 67 03/30/18 07:40 97.8 74 18 166/73 (104) 96 03/30/18 04:00 97.8 75 18 139/63 (88) 96 03/30/18 00:00 98.0 71 18 151/66 (94) 95 03/29/18 20:00 97.5 71 18 166/73 (104) 98 Physical Exam GENERAL: This is a well-nourished, well-developed patient, in no apparent distress. SKIN: No rashes, ecchymoses or lesions. Cool and dry. HEAD: Atraumatic. Normocephalic. No temporal or scalp tenderness. EYES: Sclerae clear nonicteric ENT: No facial edema or ecchymosis NECK: Trachea midline. No JVD or lymphadenopathy. Supple, nontender, no meningeal signs. CARDIOVASCULAR: Irregular rhythm RESPIRATORY: Clear, nonlabored GASTROINTESTINAL: Soft, nontender MUSCULOSKELETAL: No significant extremity edema or cyanosis. Posterior tibial pulses 2+ bilateral NEUROLOGICAL: Awake and alert. Moderate slowing of speech and thought processes Her voice is very soft. Answers simple questions appropriately. Mostly mild to moderate recent and remote memory loss Visual curran to confrontation, extraocular movements, facial sensorimotor, tongue, palate, hearing to finger rub, bilateral shoulder shrug are all intact Sensation intact light touch all extremities Strength is within normal limits major flexion-extension groups all extremities as well as hand intrinsics. Frankel's response absent bilateral No ankle clonus She gets out of the chair with moderate assist. She ambulates with a rolling walker with moderate assist. She tends to lean quite a bit to the right side when ambulating, complaining of right knee discomfort when walking. Although her gait is slowed, she does not have a definite shuffling type gait. She has a mild to moderate intention tremor of the left greater than right upper extremity. Fine motor movements are moderately slowed in the left greater than right hand. Laboratory Laboratory Tests Test 03/30/18 06:58 Prothrombin Time 32.0 Prothromb Time International Ratio 3.2 Result Diagram: 03/29/18 0540 03/29/18 0540 Imaging 03/29/2018 cervical spine MRI images are reviewed. No significant spinal canal stenosis. Moderate right C6-7 foraminal stenosis. Cervical Spine MRI 03/29/18 0000 Signed Impressions: CONCLUSION: 1. Stable examination of the cervical spine with degenerative disc disease at C5-C6 and C6-C7. There is moderate severity narrowing of the right neural ayala en at C6-C7. 2. Stable minimal anterolisthesis of C4 on C5. Neck CTA 03/28/18 Signed Impressions: CONCLUSION: 1. Some calcification in the arch. Significant tortuosity of the left internal . 2. However, the arch vessels and cervical vessels are patent throughout with n o significant stenosis to explain current clinical symptoms. Head CTA 03/28/18 Signed Impressions: CONCLUSION: Negative CTA Head. Head CT 03/28/18 Signed Impressions: CONCLUSION: No acute intracranial findings. Assessment and Plan Assessment and Plan Impression: 1. Relatively mild cervical spondylosis and degenerative disc disease, most significant at the C6-7 level where there is loss of intervertebral disc space height and moderate right foraminal stenosis. No canal stenosis or abnormal signal intensity noted within the cervical spine. 2. Mild to moderate ventriculomegaly, stable on recent imaging studies compared to report of prior studies from 2015. Possible component of NPH contributing to her gait difficulty. 3. Possible Parkinson's disease. Plan: Findings were discussed with the patient's son at bedside. The patient was examined immediately after neurology examination and case discussed with neurology at bedside. The MRI images were reviewed with the patient's son. It is not felt that she has cervical myelopathy or radiculopathy. She is being started on Sinemet per neurology. Physical therapy recommendations for inpatient rehabilitation noted. It is questionable whether there is any significant NPH contributing to her gait deficit. The family has previously expressed their desire to avoid surgical intervention for shunt placement, and reaffirm this decision today. I have answered all of the family questions. No neurosurgical intervention planned. She is stable for discharge from a neurosurgical standpoint with outpatient follow-up as needed. Jamari Chavez MD Mar 30, 2018 19:08
[2018-03-30] MEDS ORDERED: CEPHALEXIN MONOHYDRATE 500 MG CAP PO SCH (21:00)
[2018-03-30] MEDS: DOXEPIN HCL 50 MG CAP PO SCH (21:28)
[2018-03-31 03:38] VITALS: BP 148/67; PULSE 77; RESP 18; TEMP 96.5; O2SAT 94
[2018-03-31] MEDS: LEVOTHYROXINE SODIUM 50 MCG TAB PO SCH (06:19)
[2018-03-31 07:53] VITALS: BP 155/70; PULSE 76; RESP 16; TEMP 98.1; O2SAT 95
[2018-03-31 08:11] LABS: INTERNATIONAL NORMALIZED RATIO 2.5 RATIO; PROTHROMBIN TIME - PATIENT 25.1 SEC (9.8-11.6)
[2018-03-31] MEDS: AMIODARONE 200 MG TAB PO SCH (08:12)
[2018-03-31] MEDS: ESCITALOPRAM OXALATE 10 MG TAB PO SCH (08:12)
[2018-03-31] MEDS: ATORVASTATIN 20 MG TAB PO SCH (08:13)
[2018-03-31] MEDS: LEFLUNOMIDE 20 MG TAB PO SCH (08:13)
[2018-03-31] MEDS: CARBIDOPA/LEVODOPA 25 MG/100 MG TAB PO SCH (08:14)
[2018-03-31] MEDS: SODIUM CHLORIDE 0.9% FLUSH 10 ML FLUSH IV FLUSH SCH (08:14)
--- NOTE | 2018-03-31 11:42 | HHI.DS ---
Discharge Summary Admission Date Mar 28, 2018 at 16:33 Discharge Date: Mar 31, 2018 Admitting Diagnosis (1) Dizziness Diagnosis: Principal ICD Codes: R42 - Dizziness and giddiness Status: Chronic (2) Chronic atrial fibrillation Diagnosis: Secondary ICD Codes: I48.2 - Chronic atrial fibrillation Status: Chronic (3) Hypothyroidism Diagnosis: Secondary ICD Codes: E03.9 - Hypothyroidism Status: Chronic (4) Rheumatoid arthritis Diagnosis: Secondary ICD Codes: M06.9 - Rheumatoid arthritis Status: Chronic Consultants Dr. Chavez, Neurosurgery Dr. Burrell, Neurology Procedures None Brief History Patient is a pleasant 83-year-old female with multiple medical problems. Patient has had prior hospitalizations due to dizziness. Patient's most recent hospitalization for dizziness at [facility] was 09/02 - 09/06/17. During that hospitalization patient underwent extensive workup for dizziness. Carotid ultrasound was negative. Orthostatic vital signs were negative. There were no acute abnormalities noted on the patient's telemetry. MRI brain did reveal ventricular prominence which was noted to be stable but felt to be out of proportion to the degree of cortical atrophy. Consultation was obtained with neurosurgery. Neurosurgery discussed the case with patient and family. At that time they were not interested in pursuing diagnosis of NPH. During patient's August 2017 hospitalization patient was diagnosed with Takotsubo cardiomyopathy. Echocardiogram showed ejection fraction 25- 30% with diffuse global hypokinesis. Patient was started on lisinopril by cardiology. Patient had an outpatient echocardiogram which showed recovery of the patient's ejection fraction. Patient is on Coumadin anticoagulation for chronic atrial fibrillation. I discussed the case at length with the patient's son, Mr. Jozef Daniels. Mr. Daniels is concerned that his mother's dizziness has been worse in the last few weeks. In particular he is concerned that she might have autonomic dysfunction and is requesting an MRI of the cervical spine for evaluation. Even if MRI of the cervical spine suggests impingement of the patient's nerve roots, I do not feel the patient would be a good surgical candidate. Mr. Daniels agrees that she might not be a good surgical candidate, but would like to pursue workup at this time. Mr. Daniels is also quite worried that his mother's heart condition may have once again worsened and requests repeat echocardiogram. Patient does not voice complaint of worsening shortness of breath or lower extremity edema. Patient does not voice complaint of chest pain or palpitations at this time. Patient will be admitted to [facility] for further evaluation and treatment. CBC/BMP: 03/29/18 0540 03/29/18 0540 Significant Findings Laboratory Tests Test 03/28/18 11:45 03/28/18 11:50 03/28/18 16:30 03/28/18 19:30 Neutrophils (%) (Auto) 74.2 % (16.0-70.0) Monocytes (%) (Auto) 9.4 % (0.0-8.0) Lymphocytes # (Auto) 0.9 TH/MM3 (1.0-4.8) Albumin 3.2 GM/DL (3.4-5.0) Aspartate Amino Transf (AST/SGOT) 69 U/L (15-37) Alanine Aminotransferase (ALT/SGPT) 57 U/L (10-53) Potassium Level 5.7 MEQ/L (3.5-5.1) 3.4 MEQ/L (3.5-5.1) Estimat Glomerular Filtration Rate 70 ML/MIN (>89) 70 ML/MIN (>89) Troponin I LESS THAN 0.02 NG/ML Random Glucose 107 MG/DL (74-106) Calcium Level 8.4 MG/DL (8.5-10.1) Prothrombin Time 34.4 SEC (9.8-11.6) Test 03/29/18 05:40 03/30/18 06:58 03/31/18 05:55 Red Blood Count 3.88 MIL/MM3 (4.00-5.30) Hemoglobin 11.0 GM/DL (11.6-15.3) Hematocrit 33.5 % (35.0-46.0) Platelet Count 133 TH/MM3 (150-450) Monocytes (%) (Auto) 12.4 % (0.0-8.0) Lymphocytes # (Auto) 0.8 TH/MM3 (1.0-4.8) Prothrombin Time 35.7 SEC (9.8-11.6) 32.0 SEC (9.8-11.6) 25.1 SEC (9.8-11.6) Estimat Glomerular Filtration Rate 75 ML/MIN (>89) Imaging Last Impressions Cervical Spine MRI 03/29/18 0000 Signed Impressions: CONCLUSION: 1. Stable examination of the cervical spine with degenerative disc disease at C5-C6 and C6-C7. There is moderate severity narrowing of the right neural ayala en at C6-C7. 2. Stable minimal anterolisthesis of C4 on C5. Neck CTA 03/28/18 Signed Impressions: CONCLUSION: 1. Some calcification in the arch. Significant tortuosity of the left internal . 2. However, the arch vessels and cervical vessels are patent throughout with n o significant stenosis to explain current clinical symptoms. Head CTA 03/28/18 Signed Impressions: CONCLUSION: Negative CTA Head. Head CT 03/28/18 Signed Impressions: CONCLUSION: No acute intracranial findings. PE at Discharge GENERAL: This is a well-nourished, well-developed patient, in no apparent distress. CARDIOVASCULAR: Regular rate and rhythm without murmurs, gallops, or rubs. RESPIRATORY: Clear to auscultation. Breath sounds equal bilaterally. No wheezes , rales, or rhonchi. GASTROINTESTINAL: Abdomen soft, non-tender, nondistended. Normal active bowel sounds MUSCULOSKELETAL: Extremities without clubbing, cyanosis, or edema. NEURO: Alert & Oriented x4 to person, place, time, situation. Moves all ext x4 Hospital Course Dizziness Patient is a pleasant 83-year-old female with multiple medical problems. Patient has had prior hospitalizations due to dizziness. Patient's most recent hospitalization for dizziness at [facility] was 09/02 - 09/06/17. During that hospitalization patient underwent extensive workup for dizziness. Carotid ultrasound was negative. Orthostatic vital signs were negative. There were no acute abnormalities noted on the patient's telemetry. MRI brain did reveal ventricular prominence which was noted to be stable but felt to be out of proportion to the degree of cortical atrophy. Consultation was obtained with neurosurgery. Neurosurgery discussed the case with patient and family. At that time they were not interested in pursuing diagnosis of NPH. During patient's August 2017 hospitalization patient was diagnosed with Takotsubo cardiomyopathy. Echocardiogram showed ejection fraction 25- 30% with diffuse global hypokinesis. Patient was started on lisinopril by cardiology. Patient had an outpatient echocardiogram which showed recovery of the patient's ejection fraction. Patient is on Coumadin anticoagulation for chronic atrial fibrillation. I discussed the case at length with the patient's son, Mr. Jozef Daniels. Mr. Daniels is concerned that his mother's dizziness has been worse in the last few weeks. In particular he is concerned that she might have autonomic dysfunction and is requesting an MRI of the cervical spine for evaluation. Even if MRI of the cervical spine suggests impingement of the patient's nerve roots, I do not feel the patient would be a good surgical candidate. Mr. Daniels agrees that she might not be a good surgical candidate, but would like to pursue workup at this time. Mr. Daniels is also quite worried that his mother's heart condition may have once again worsened and requests repeat echocardiogram. Patient does not voice complaint of worsening shortness of breath or lower extremity edema. Patient does not voice complaint of chest pain or palpitations at this time. - Telemetry: NSR - MRI neck (03/28/18) 1. Stable examination of the cervical spine with degenerative disc disease at C5-C6 and C6-C7. There is moderate severity narrowing of the right neural foramen at C6-C7. 2. Stable minimal anterolisthesis of C4 on C5. - Case d/w Dr. Chavez (03/29/18). He will consult. Seems unlikely at this point that neurosurgical procedure will benefit pt's symptoms. - Pt/son indicated NOT interested previously in pursing w/u for NPH. - Per Neurosurgery consultation: It is not felt that she has cervical myelopathy or radiculopathy. It is questionable whether there is any significant NPH contributing to her gait deficit. The family has previously expressed their desire to avoid surgical intervention for shunt placement, and reaffirm this decision today. No neurosurgical intervention planned. She is stable for discharge from a neurosurgical standpoint with outpatient follow-up as needed. - History of takotsubo cardiomyopathy during August 2017 hospitalization with [facility] of ejection fraction on outpatient echocardiogram. - Pt's son concerned that EF may have again deteriorated, although NO c/o sob, cp, or edema - Echocardiogram (03/29/18) - The left ventricular systolic function is normal with an estimated ejection fraction in the range of 60-65%. - [id number] mitral valve regurgitation. - Moderate aortic valve regurgitation. - There is mild tricuspid valve regurgitation. - Pt seen by Physical Therapy (03/29) - Pt recommended evaluation of pt's vertebral arteries and consideration of Bar maneuver - Pt already had CTA of the neck (03/28). NO stenotic lesions were identified in the vertebral arteries. - previous MRI brain Fall 2016 showed prominent ventricles, but no other particular acute findings. - Patient would be a poor surgical candidate. -Consider discharge to SNF (alf facility) for strengthening and gait training. - Pt/son seem to be against SNF at this time. - Pt's son requesting outpt PT at pt's [facility] with non-[facility] affiliated PT, Diallo Hoyt. [facility] Case Management has been contacted (03/29/18) to see if this is a possibility. - I updated the pt's son Mr. Jozef Min extensively at the bedside (03/29/18). - 03/30/18 Patient has been authorized to have PT with Diallo Hoyt authorization number [id number] - Neurology also consulted. Dr. Burrell suspects dizziness related to unsteadiness/retropulsion from Parkinsonism and does not find evidence of vertigo based on exam or history - patient started on Sinemet - Patient to follow up with Dr. Burrell outpatient -DVT prophylaxis -Supportive care Chronic atrial fibrillation - h/o afib ablation. - amiodarone - INR 3.4 (03/28) - 2.5 (03/31) - hold Coumadin. Dr. Li discussed (with patient and her son Jozef)the risks of frequent falls while on Coumadin and recommended patient hold Coumadin and follow up with her outpatient senior net software engineer Dr. Baker. Patient's son not willing to stop his mothers Coumadin due to CVA risks. Patient's son wishes to follow up with Dr. Kauffman's before changing Coumadin status. Dr. Li also discussed the case with Dr. Baker. Hypothyroidism - continue levothyroxine Rheumatoid arthritis - continue arava Pt Condition on Discharge: Stable Discharge Disposition: [facility]DC Discharge Instructions DIET: Follow Instructions for: Heart Healthy Diet, Coumadin (Warfarin) Diet Activities you can perform: Weight Bearing as Bhavna Other Activity Instructions: ambulate with assistance Follow up Referrals: Cardiology - [address] Baker Neurology - 2 Weeks with Kristine Burrell MD PCP Follow-up - [address] Gallardo New Medications: [Carbidopa-Levodopa 25-100 Mg] () 1 TAB TAB 0.5 TAB PO TIDAC for Parkinson's disease for 30 Days, TAB 0 Refills Continued Medications: Alprazolam (Xanax) 0.25 Mg Tab 0.25 MG PO Q8H PRN for anxiety, #15 TAB 0 Refills Amiodarone (Amiodarone) 200 Mg Tab 200 MG PO DAILY for afib, #30 TAB 6 Refills Ascorbic Acid ER (Vitamin C Tr) 500 Mg Caper 3000 MG PO DAILY for Nutritional Supplement, #30 CAP 0 Refills Aspirin (Aspirin) 81 Mg Chew 81 MG CHEW DAILY for takotsubo, #180 TAB 0 Refills Atorvastatin (Atorvastatin) 20 Mg Tab 20 MG PO DAILY for cholesterol, #30 TAB Cephalexin (Keflex) 500 Mg Cap 500 MG PO DAILY for Infection, CAP 0 Refills Cholecalciferol (Vitamin D3) 1,000 Unit Tab 1000 UNITS PO BID for Nutritional Supplement, #1 BOTTLE 0 Refills Coenzyme Q10 (Ubidecarenone) (Coq-10) 50 Mg Cap 100 MG PO DAILY Doxepin (Doxepin) 50 Mg Cap 50 MG PO HS, #30 CAP 0 Refills Escitalopram (Escitalopram) 10 Mg Tab 10 MG PO DAILY for anxiety, #30 TAB 0 Refills Leflunomide (Leflunomide) Unknown Strength Tab 20 MG PO DAILY, TAB Levothyroxine (Levothyroxine) 50 Mcg Tab 50 MCG PO DAILY for Thyroid, #30 TAB 0 Refills Multiple Vitamins W/ Minerals (Thera M Plus) 1 Tab 1 TAB PO DAILY for Nutritional Supplement, TAB 0 Refills Propranolol (Propranolol) 20 Mg Tab 20 MG PO Q12HR, #60 TAB 0 Refills Saccharomyces Boulardii (Probiotic) 250 Mg Cap 250 MG PO BID for Nutritional Supplement, CAP 0 Refills Warfarin (Warfarin) 3 Mg Tab 3 MG PO for Blood Clot Prevention, #30 TAB 0 Refills Take 1 tablet (3mg) on Wednesday,Wednesday,Wednesday,,Wednesday and Wednesday Warfarin (Warfarin) 2 Mg Tab 2 MG PO WEDNESDAY for Blood Clot Prevention, #30 TAB 0 Refills Discontinued Medications: Leflunomide (Leflunomide) 20 Mg Tab 20 MG PO DAILY, TAB Additional Information Patient examined. Assessment and plan formulated with Kamala Syed PA-C. I agree with the above. Kamala Syed Mar 31, 2018 11:42 [place] Li DO Apr 03, 2018 22:57
== END 2018-03-31 11:35 ==
LOC: NEPE 09:50 → NEDA 16:33 → NEPGCP 17:18
PROVIDERS: ADMIT Hospitalist; ATTEND Hospitalist
DX: G20 Parkinson's disease (principal); R26.9 Unspecified abnormalities of gait and mobility; I48.2 Chronic atrial fibrillation; E03.9 Hypothyroidism, unspecified; M06.9 Rheumatoid arthritis, unspecified; R42 Dizziness and giddiness; I51.81 Takotsubo syndrome; Z79.01 Long term (current) use of anticoagulants
CPT/HCPCS: 70450; 70496; 70498; 72141; 80048; 80053; 81001; 82550; 84484; 85025; 85610; 93005; 93306; 97110; 97163; 97530; 99285; G0378; G8987; G8988; P9612; Q9967